=== PATIENT | female | born 2000 | race Caucasian/White ===

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

== ENCOUNTER 2020-01-15 20:41 | Emergency (ER) | payer SELFPAY ==
[2020-01-15 20:46] VITALS: BP 168/121; PULSE 112; RESP 16; TEMP 37.1; O2SAT 100; BMI 39.0
--- NOTE | 2020-01-15 20:55 | ED_ITS ---
Documented by User: BARRERA Mckeon 01/16/20 03:16 HPI - Extremity Problem General: Chief complaint: Extremity Problem,Nontraumatic Stated complaint: under arm abscess Time Seen by Provider: 01/15/20 20:54 History of Present Illness: HPI Narrative: Patient is a 19-year-old female who comes into the ED with right axillary abscess. Patient states that this started around 2 weeks ago and is progressively gotten larger and more painful. Patient has had these in the past and usually she states they come to ahead and she is able to pop them. This one has not come to a head at all and is gotten more more painful and red and warm. Denies any drainage amount of abscess. She states the pain right now is a 10 out of 10. She has not taken any antibiotics recently. Associated symptoms: Deny chest pain, fever(s) or rash Review of Systems Const: Denies: fever, chills or fatigue Eyes: Denies: change in vision or eye discomfort ENMT: Denies: throat pain, painful swallowing, nasal discharge or nasal congestion Card: Denies: chest pain, palpitations, edema, swelling of feet/ankles, shortness of breath on exertion or shortness of breath when lying down Resp: Denies: shortness of breath, productive cough or non-productive cough GI: Denies: abdominal pain, nausea, vomiting, diarrhea, constipation or blood in stool : Denies: flank pain, painful urination or blood in urine Musc: Denies: neck pain, back pain or extremity swelling Skin/Breast: Reports: redness (right axillary), skin tenderness (right axillary) and new lesion (right axillary abscess); Denies: rash Neuro: Denies: headache, numbness in extremities or weakness in extremities PFSH ED PFSH: Social History Smoking and tobacco status: current every day smoker Female Reproductive History: Date of last menstrual period: 12/25/19 Physical Exam Narrative: EXAM NARRATIVE: Patient is a 19-year-old female that is lying on the exam bed when into the room. She appeared to be in some mild pain and discomfort. She was showing no signs of acute distress or acute respiratory distress. Const: COMMON NORMALS: oriented x3 HENMT: COMMON NORMALS: normocephalic HEAD & SCALP: normocephalic MOUTH: oral and palatal mucosa normal THROAT: posterior oropharynx normal and uvula midline Neck/C-Spine: COMMON NORMALS: supple GENERAL: Yes normal visual inspection Resp: COMMON NORMALS: normal respiratory effort, no retractions, no use of accessory muscles and clear to auscultation bilaterally AUSCULTATION: clear to auscultation bilaterally Cardio: COMMON NORMALS: regular rate, regular rhythm, S1 normal heart sound, S2 normal heart sound, no gallops, no clicks, no murmurs and peripheral pulses 2+ throughout RATE: regular rate RHYTHM: regular rhythm HEART SOUNDS: S1 normal and S2 normal PERIPHERAL PULSES: pulses 2+ throughout GI: COMMON NORMALS: normal to inspection, nondistended, normoactive bowel sounds, soft to palpation, non-tender and no masses PALPATION: Yes soft : COMMON NORMALS: Yes no CVA tenderness BLADDER/KIDNEY EXAM: Yes no CVA tenderness Back/Pelvis: COMMON NORMALS: no CVA tenderness Neuro: COMMON NORMALS: oriented x3 and moves all extremities Skin: LESIONS: lesion noted Right axillary Lesion type: Yes bulla Lesion size (cm): 1 Lesion location: right axillary Lesion color: Yes erythematous and Yes surrounding erythema Lesion consistency: Yes fluctuent, Yes firm and Yes indurated Lesion surface: Yes dry, Yes raised, No pointed, No draining and Yes warm Lesion border: Yes surrounding erythema Lesion tenderness: Yes moderate Le norman finding consistent with: Yes cellulitis (with abscess) Procedures Abscess I/D Site: upper extremity (Right Axillary) Side (if applicable): right Local Anesthetic: lidocaine 1% and with epi Amount of anesthesia used (mL): 10 Technique: incised with #11 blade Amount of fluid expressed (mL): 5 Irrigation: Yes (normal saline) Packing used?: none Course Reevaluation(s): Reevaluation #1: I used ultrasound to take a look at the right axillary region. I was able to identify a pocket of fluid to drain that appeared to be an abscess. Time: 22:35 Vital Signs: Vital signs: Vital Signs Temperature 98.2 F 01/16/20 00:05 Pulse Rate 97 01/16/20 00:05 Respiratory Rate 16 01/16/20 00:05 Blood Pressure 115/69 01/16/20 00:05 Pulse Oximetry 96 01/16/20 00:05 MDM - Extremity (Nontraumatic) MDM Narrative: Medical decision making narrative: Patient is a 19-year-old female who comes into the ED with abscess under her right axillary region. Physical examination showed a tender, erythematous, warm hard bullae with surrounding erythema. It appeared non-fluctuated and indurated. Ultrasound was performed to see if there was any pocket of fluid or abscess to be drained. Ultrasound did show an abscess. I&D was performed and pus was drained from abscess successfully. Patient was put on clindamycin and I&D site was left to heal by secondary intention. Patient told to follow-up with PCP in 3 to 5 days for reevaluation. Discharge Plan Discharge Patient Disposition: Home, Self-Care Clinical Impression: Abscess Cellulitis Qualifiers: Site of cellulitis: extremity Site of cellulitis of extremity: axilla Laterality: right Qualified Code(s): L03.111 - Cellulitis of right axilla Condition: Stable Prescriptions: New clindamycin HCl 150 mg capsule 300 mg PO QID 7 Days Qty: 56 RF: 0 No Action No Known Home Medications RF: 0 Discharge Orders: Discharge Order (Routine); Ordered 01/15/20 Ordered By: Surinder Arshad Referrals: Marco Cabezas DO [Primary Care Provider] - Discharge Diet: Regular Discharge Activity: Resume usual activity Patient Instructions: Cellulitis, Abscess (ED) Activity Restrictions/Additional Instructions: Follow-up with PCP or urgent care in 2 to 4 days for reevaluation. Change packing and bandage on abscess drainage site daily. Take full course of antibiotics as prescribed. You can take ibuprofen or Tylenol as needed for pain or fevers. Drink plenty of fluids and stay hydrated. Discharge Date/Time: 01/16/20 00:08 Coding Level of Care Code ED Group Supervisor Yard for Chg Fwd Exam Comprehensive Documented by User: Ibeth Peralta 01/16/20 05:01 HPI - Extremity Problem General: Chief complaint: Extremity Problem,Nontraumatic Stated complaint: under arm abscess Time Seen by Provider: 01/15/20 20:54 PFSH ED PFSH: Social History Smoking and tobacco status: current every day smoker Course Vital Signs: Vital signs: Vital Signs Temperature 98.2 F 01/16/20 00:05 Pulse Rate 97 01/16/20 00:05 Respiratory Rate 16 01/16/20 00:05 Blood Pressure 115/69 01/16/20 00:05 Pulse Oximetry 96 01/16/20 00:05 MDM - Extremity (Nontraumatic) MDM Narrative: Medical decision making narrative: This patient was not seen by me, evaluated by me nor discussed with me by the midlevel provider. I was available in the ER if needed throughout their stay but was not involved or contacted about their care. I am signing this chart per hospital policy ? Dr. Peralta. Discharge Plan Discharge Patient Disposition: Home, Self-Care Clinical Impression: Abscess Cellulitis Qualifiers: Site of cellulitis: extremity Site of cellulitis of extremity: axilla Laterality: right Qualified Code(s): L03.111 - Cellulitis of right axilla Condition: Stable Prescriptions: New clindamycin HCl 150 mg capsule 300 mg PO QID 7 Days Qty: 56 RF: 0 No Action No Known Home Medications RF: 0 Discharge Orders: Discharge Order (Routine); Ordered 01/15/20 Ordered By: Surinder Arshad Referrals: Marco Cabezas DO [Primary Care Provider] - Discharge Diet: Regular Discharge Activity: Resume usual activity Patient Instructions: Cellulitis, Abscess (ED) Activity Restrictions/Additional Instructions: Follow-up with PCP or urgent care in 2 to 4 days for reevaluation. Change packing and bandage on abscess drainage site daily. Take full course of antibiotics as prescribed. You can take ibuprofen or Tylenol as needed for pain or fevers. Drink plenty of fluids and stay hydrated. Discharge Date/Time: 01/16/20 00:08 Coding Level of Care Code ED Group Supervisor Yard for Michael Fwd Exam Comprehensive
--- NOTE | 2020-01-15 21:33 | PC.NURSE ---
pt asking for pain medication, rates pain an 8 on scale of 1-10
[2020-01-15] MEDS: HYDROcodone-acetaminophen 7.5-325 mg Tablet 1 TAB PO (22:11)
[2020-01-15 22:44] VITALS: BP 145/101; PULSE 109; O2SAT 98
[2020-01-16] MEDS: clindamycin 150 mg Capsule 300 MG PO (00:01)
[2020-01-16] MEDS: HYDROcodone-acetaminophen 7.5-325 mg Tablet 1 TAB PO (00:02)
[2020-01-16 00:05] VITALS: BP 115/69; PULSE 97; RESP 16; TEMP 36.8; O2SAT 96
== END 2020-01-16 00:08 | disposition home or self-care (01) ==
PROVIDERS: Emergency Provider Physician Assistant; Family Provider Family Medicine; PCP Family Medicine
DX: L02.411 Cutaneous abscess of right axilla (principal); L03.111 Cellulitis of right axilla; F17.200 Nicotine dependence, unspecified, uncomplicated
CPT/HCPCS: 10060; 12345; 87070; 87077; 87186; 87205; 99281; 99282; 99283; J2001

== ENCOUNTER 2020-03-20 02:59 | Emergency (ER) | payer SELFPAY ==
[2020-03-20 03:07] VITALS: BP 154/111; PULSE 116; RESP 18; TEMP 36.6; O2SAT 96; BMI 41.3
[2020-03-20] MEDS: sodium chloride 0.9% 1,000 ML 999 ML IV (03:50)
[2020-03-20 03:51] VITALS: BP 154/111; PULSE 76; RESP 19; O2SAT 100
[2020-03-20 04:13] LABS: Basophils # 0.1 10^3/uL (0.0-0.1); Basophils % 0.9 %; Eosinophils # 0.2 10^3/uL (0.0-0.8); Eosinophils % 2.4 %; Hematocrit 38.8 % (37.0-47.0); Hemoglobin 12.8 g/dL (11.5-15.3); Lymphocytes # 4.7 10^3/uL (1.5-6.5); Lymphocytes % 50.9 %; Mean Corpuscular Hemoglobin 28.9 pg (28.0-34.0); Mean Corpuscular Volume 87.6 fL (81-99); Mean Platelet Volume 10.9 fL (7.4-10.4); Monocytes # 0.7 10^3/uL (0.2-0.9); Monocytes % 7.5 %; Neutrophils # 3.5 10^3/uL (1.8-8.0); Nucleated Red Blood Cells % 0 %; Platelet Count 264 10^3/cmm (130-400); Red Blood Count 4.43 10^6/uL (4.1-5.3); Red Cell Distribution Width 15.9 % (12.1-15.1); White Blood Count 9.2 10^3/uL (4.5-13.0)
[2020-03-20 04:19] LABS: Alanine Aminotransferase 20 U/L (0-33); Alkaline Phosphatase 86 IU/L (35-105); Anion Gap 14.9 (5-19); Aspartate Amino Transferase 20 U/L (0-32); Blood Urea Nitrogen 6 mg/dL (6-20); Calcium 8.5 mg/dL (8.5-10.5); Carbon Dioxide 22 mmol/L (22-29); Chloride 105 mmol/L (98-107); Creatinine Clr Calc Pharmacy 215.5146; Globulin 2.2 g/dL (1.3-4.6); Glomerular Filtration Rate 128.8 mL/min (90-130); Glucose 103 mg/dL (65-115); Lipase 24 U/L (13-60); Osmolality Calculated 282 mOsm/kg (285-295); Potassium 3.9 mmol/L (3.5-5.1); Sodium 138 mmol/L (136-145); Total Bilirubin 0.2 mg/dL (0.15-1.2); Total Protein 6.2 g/dL (6.6-8.7)
--- NOTE | 2020-03-20 04:23 | USR_ITS ---
PROCEDURE INFORMATION: Exam: US First Trimester, Transabdominal and US , Transvaginal Exam date and time: 03/20/2020 5:49 AM Age: 19 years old Clinical indication: complicated by abdominal or pelvic pain; Right lower quadrant; First trimester; Gestational age or lmp: 5w 0d; ; Additional info: Preg, cramping. HCG level 585. TECHNIQUE: Imaging protocol: Real-time transabdominal obstetrical ultrasound of the maternal pelvis and a first trimester , less than 14 weeks 0 days, with image documentation. Transvaginal imaging was used for better evaluation of the fetus and adnexa. COMPARISON: US No relevant prior studies available. FINDINGS: There is a 3 mm rounded fluid collection within the uterus that may represent a very early gestational sac. No definite yolk sac visible to confirm that this is a true gestational sac. Size would suggest gestational age of between four and five weeks. Small amount of cul-de-sac fluid. Small complex cyst involving the right ovary, measuring 20 x 19 x 20 mm, possibly corpus luteum. Ectopic not excluded, but felt less likely. Maternal ovaries/adnexa otherwise appear essentially unremarkable. Blood flow detected in each ovary. The sonographic appearance alone is nonspecific. This may represent an early viable intrauterine , less than five weeks gestation. If there is any further question of viability, follow up will be needed. An ectopic with a pseudo sac in the uterus is not yet completely excluded. Appropriate clinical follow up is needed. The urinary bladder was not completely evaluated/imaged at this time. Endovaginal scanning provided better visualization/evaluation of the gestational sac and contents, as discussed above. US/US OB <=14 wk fetus w transvag IMPRESSION: 1. Possible very early gestational sac within the uterus. 2. See above discussion and recommendations. 3. Small complex cyst involving the right ovary, details above. 4. Other findings discussed above.
[2020-03-20 05:53] VITALS: RESP 18; O2SAT 99
[2020-03-20] MEDS: HYDROmorphone 1 mg/mL INJ 1 mL IVP (05:53)
[2020-03-20] MEDS: ondansetron 2 mg/ML SDV 2 mL 4 MG IVP (05:54)
[2020-03-20 05:58] VITALS: BP 124/91; PULSE 101; RESP 20; O2SAT 99
--- NOTE | 2020-03-20 06:55 | W.ED.ABDPA2 ---
HPI - Abdominal Pain General: Chief Complaint: Abdominal Pain Stated Complaint: ABD PAIN; 4 WEEKS Time Seen by Provider: 03/20/20 03:46 History of Present Illness: HPI narrative: 19-year-old female with a positive urine at home presents with right-sided belly pain and cramping no vomiting. She does have nausea. No fever. No vaginal bleeding or discharge. States her period was around 4 weeks ago. MD elicited complaint: abdominal pain Pertinent past history: none Onset (ago): day(s) Pain Consistency: constant Location: RLQ Severity: moderate Quality: cramping Radiation: none Relieving factors: nothing Associated Symptoms: Reports GI cramping; Denies chills, dysuria, fever(s) and hematuria Related Data: Date of Last Menstrual Period: 02/15/20 Review of Systems Const: Denies: fever(s) or chills Eyes: Denies: change in vision ENMT: Denies: swelling of lips/tongue, epistaxis or sinus pain Card: Denies: chest pain, palpitations, irregular heart rhythm or edema Resp: Denies: dyspnea, productive cough, non-productive cough or wheezing GI: Reports: GI cramping : Denies: dysuria or hematuria Musc: Denies: neck pain, joint redness or joint warmth Skin/Breast: Denies: rash, pruritus or erythema Neuro: Denies: headache(s), dizziness or vertigo Psych: Denies: anxiety PFSH ED PFSH: Social History Smoking and tobacco status: current every day smoker Female Reproductive History: Date of last menstrual period: 02/15/20 Physical Exam Const: GENERAL APPEARANCE: well developed ORIENTATION/CONSCIOUSNESS: Yes oriented to person, Yes oriented to place and Yes oriented to time HENMT: COMMON NORMALS: normocephalic, external ears normal and Normal external nose present HEAD & SCALP: normocephalic FACE & SINUS: normal facial exam NOSE: Normal external nose present and No nasal discharge present EXTERNAL EAR: Yes external ears normal MOUTH: tongue normal Eye: COMMON NORMALS: Equal, round and reactive pupils present, EOMs intact bilaterally and conjunctivae normal EYELID: eyelids normal CONJUNCTIVA: Yes conjunctivae normal PUPIL: Yes Equal, round and reactive pupils present Neck/C-Spine: GENERAL: No tracheal deviation Chest: COMMONS NORMALS: normal inspection of the chest CHEST: No tenderness Resp: COMMON NORMALS: clear to auscultation bilaterally EFFORT & INSPECTION: No tachypneic, No respiratory distress, No retractions, No uses accessory muscles and No tracheal deviation AUSCULTATION: clear to auscultation bilaterally, no rhonchi, no wheezes and lung sounds not diminished Cardio: COMMON NORMALS: regular rate and regular rhythm RATE: regular rate RHYTHM: regular rhythm HEART SOUNDS: no murmurs PERIPHERAL PULSES: radial pulses present GI: INSPECTION: No abdominal distension AUSCULTATION: No Hyperactive bowel sounds present and No Hypoactive bowel sounds present PALPATION: Yes Tenderness to palpation present (GI) Details: RLQ, No Guarding due to palpation present (GI) and No Rigid due to palpation PERCUSSION: no dullness to percussion and no tympanic to percussion : COMMON NORMALS: Yes no CVA tenderness BLADDER/KIDNEY EXAM: Yes no CVA tenderness Back/Pelvis: COMMON NORMALS: no CVA tenderness Neuro: SENSORIUM/ORIENTATION: Yes oriented to person, Yes oriented to place and Yes oriented to time Psych: COMMON NORMALS: mental status grossly normal Skin: COMMON NORMALS: no rashes or lesions noted GENERAL SKIN EXAM: no rashes or lesions noted Course Vital Signs: Vital signs: Vital Signs Temperature 97.9 F 03/20/20 03:07 Pulse Rate 101 H 03/20/20 05:58 Respiratory Rate 20 H 03/20/20 05:58 Blood Pressure 124/91 03/20/20 05:58 Pulse Oximetry 99 03/20/20 05:58 MDM - Abdominal Pain MDM Narrative: Medical decision making narrative: 19-year-old female with a positive test. Serum quant is 585. She has no vaginal bleeding. No discharge. Ultrasound reveals a 4 to 5-week sac. She has a corpus luteum cyst that is less likely an ectopic spoke with OB. Recommendations are repeat serum quantitative test in a few days, with repeat ultrasound in a week. Lab Data: Labs: Lab Results 03/20/20 03/20/20 Range/Units 03:45 03:45 WBC 9.2 (4.5-13.0) 10^3/ uL RBC 4.43 (4.1-5.3) 10^6/u L Hgb 12.8 (11.5-15.3) g/dL Hct 38.8 (37.0-47.0) % MCV 87.6 (81-99) fL MCH 28.9 (28.0-34.0) pg MCHC 33.0 (30.0-36.0) g/dL RDW 15.9 H (12.1-15.1) % Plt Count 264 (130-400) 10^3/c mm MPV 10.9 H (7.4-10.4) fL Neut % (Auto) 38.0 % Lymph % (Auto) 50.9 % [place] % (Auto) 7.5 % Eos % (Auto) 2.4 % Baso % (Auto) 0.9 % Neut # (Auto) 3.5 (1.8-8.0) 10^3/u L Lymph # (Auto) 4.7 (1.5-6.5) 10^3/u L [place] # (Auto) 0.7 (0.2-0.9) 10^3/u L Eos # (Auto) 0.2 (0.0-0.8) 10^3/u L Baso # (Auto) 0.1 (0.0-0.1) 10^3/u L Nucleated RBC % (a uto) 0 % Nucleated RBCs # 0.0 /100WBC Sodium 138 (136-145) mmol/L Potassium 3.9 (3.5-5.1) mmol/L Chloride 105 (98-107) mmol/L Carbon Dioxide 22 (22-29) mmol/L Anion Gap 14.9 (5-19) BUN 6 (6-20) mg/dL Creatinine 0.6 (0.5-0.9) mg/dL GFR Calculation 128.8 (90-130) mL/min Glucose 103 (65-115) mg/dL Calculated Osmolal ity 282 L (285-295) mOsm/k g Calcium 8.5 (8.5-10.5) mg/dL Total Bilirubin 0.2 (0.15-1.2) mg/dL AST 20 (0-32) U/L ALT 20 (0-33) U/L Alkaline Phosphata se 86 (35-105) IU/L Total Protein 6.2 L (6.6-8.7) g/dL Albumin 4.0 (3.5-5.2) g/dL Globulin 2.2 (1.3-4.6) g/dL Lipase 24 (13-60) U/L Ser , Mike i-Qnt 585.50 mIU/mL Discharge Plan Discharge Patient Disposition: Home, Self-Care Clinical Impression: Qualifiers: Weeks of gestation: less than 8 weeks Qualified Code(s): Z3A.01 - Less than 8 weeks gestation of Abdominal pain Qualifiers: Abdominal location: right lower quadrant Qualified Code(s): R10.31 - Right lower quadrant pain Condition: Stable Prescriptions: No Action No Known Home Medications RF: 0 Discharge Orders: Discharge Order (Routine); Ordered 03/20/20 Ordered By: Gómez Stern Referrals: Les Haynes MD [Physician] - 1-3 days Patient Instructions: Cholecystitis (ED), Abdominal Pain (ED) Activity Restrictions/Additional Instructions: Return for fever greater than 100, worsening pain, brisk vaginal bleeding, soaking more than 1 pad per hour for more than 2 to 3 hours. you should call an legal arbitrator on Saturday morning. You will need repeat blood work, and a repeat ultrasound this coming week. Coding Level of Care Code ED Venereal Disease Control Head for Chg Fwd Exam Comprehensive
[2020-03-20 07:28] VITALS: BP 142/86; PULSE 75; RESP 15; O2SAT 98
[2020-03-20 08:12] LABS: Bilirubin Urine Neg (NEGATIVE); Blood Urine 2+ (Negative); Glucose Urine UA Norm (Normal); Ketones Urine Negative (Negative); Leukocyte Esterase Urine Negative (Negative); Nitrate Urine Negative (Negative); Protein Urine 3+ (Negative); Urine Appearance Clear (CLEAR); Urine Color Yellow (Yellow); Urobilinogen Urine Norm (Negative); pH Urine 5 (5-7)
[2020-03-20 08:14] LABS: Add Urine Microscopic? YES
[2020-03-20 08:21] LABS: Bacteria Urine 2+; Mucus Urine 1+
[2020-03-20 08:22] LABS: Add Urine Culture? No
== END 2020-03-20 07:30 | disposition home or self-care (01) ==
PROVIDERS: Emergency Provider Emergency Medicine
DX: O26.891 Other specified pregnancy related conditions, first trimester (principal); R10.31 Right lower quadrant pain; Z3A.01 Less than 8 weeks gestation of pregnancy; O99.331 Smoking (tobacco) complicating pregnancy, first trimester; F17.210 Nicotine dependence, cigarettes, uncomplicated
CPT/HCPCS: 12345; 76801; 76817; 80053; 81001; 81003; 83690; 84702; 85025; 96360; 96361; 96374; 96375; 99283; J1170; J2405; J7030

== ENCOUNTER 2020-05-05 23:24 | Emergency (ER) | payer MEDICAID, SELFPAY ==
[2020-05-05 23:41] VITALS: BP 137/89; PULSE 106; RESP 18; TEMP 36.6; O2SAT 98; BMI 39.0
--- NOTE | 2020-05-06 00:44 | US_ITS ---
WS: [id number] EARLY OBSTETRICAL ULTRASOUND (<14 WEEKS). HISTORY: Pain COMPARISON: None available. Single intrauterine gestational sac is identified. Cardiac activity at 176 BPM. [place]-rump length aracelis sures 4.0 cm which corresponds to a gestation of 10 weeks 6 days. Normal-appearing yolk sac and amnio n demonstrated. No subchorionic hemorrhage. No free fluid. No adnexal masses. US/US OB limited [id number] IMPRESSION: 1. Single intrauterine gestation of 10 weeks 6 days with an EDC of 11/26/2020. 2. Quality of examination is limited without transvaginal imaging. No abnormal ity is noted.
[2020-05-06 01:07] LABS: Basophils % 0.3 %; Eosinophils # 0.1 10^3/uL (0.0-0.8); Eosinophils % 1.4 %; Hematocrit 38.2 % (37.0-47.0); Hemoglobin 12.8 g/dL (11.5-15.3); Lymphocytes # 4.1 10^3/uL (1.5-6.5); Lymphocytes % 39.5 %; Mean Corpuscular HGB Conc 33.5 g/dL (30.0-36.0); Mean Corpuscular Hemoglobin 30.2 pg (28.0-34.0); Mean Corpuscular Volume 90.1 fL (81-99); Mean Platelet Volume 10.8 fL (7.4-10.4); Monocytes # 0.5 10^3/uL (0.2-0.9); Monocytes % 4.4 %; Neutrophils # 5.55 10^3/uL (1.8-8.0); Nucleated Red Blood Cells % 0 %; Platelet Count 208 10^3/cmm (130-400); Red Blood Count 4.24 10^6/uL (4.1-5.3); Red Cell Distribution Width 14.1 % (12.1-15.1); White Blood Count 10.3 10^3/uL (4.5-13.0)
[2020-05-06 01:34] LABS: Alanine Aminotransferase 14 U/L (0-33); Albumin Level 4.1 g/dL (3.5-5.2); Alkaline Phosphatase 70 IU/L (35-105); Anion Gap 12.7 (5-19); Aspartate Amino Transferase 14 U/L (0-32); Blood Urea Nitrogen 5 mg/dL (6-20); Calcium 9.4 mg/dL (8.5-10.5); Carbon Dioxide 24 mmol/L (22-29); Chloride 104 mmol/L (98-107); Globulin 2.2 g/dL (1.3-4.6); Glomerular Filtration Rate 128.8 mL/min (90-130); Glucose 89 mg/dL (65-115); Osmolality Calculated 279 mOsm/kg (285-295); Potassium 3.7 mmol/L (3.5-5.1); Sodium 137 mmol/L (136-145); Total Bilirubin 0.3 mg/dL (0.15-1.2); Total Protein 6.3 g/dL (6.6-8.7)
[2020-05-06 02:30] LABS: Specific Gravity, Urine 1.025 (1.005-1.030); Urine Appearance SL Hazy (CLEAR); Urine Color Dark Yellow (Yellow); pH Urine 6 (5-7)
[2020-05-06 02:31] LABS: Add Urine Culture? Yes; Bacteria Urine 2+; Bilirubin Urine Neg (NEGATIVE); Blood Urine 3+ (Negative); Glucose Urine UA Norm (Normal); Hyaline Casts Urine 0-4; Ketones Urine Negative (Negative); Leukocyte Esterase Urine Negative (Negative); Mucus Urine 1+; Nitrate Urine Negative (Negative); Protein Urine 3+ (Negative); RBC Urine 0-4 /hpf (0-2); Squamous Epithelial Cell Urine 0-4 (0-5); Urobilinogen Urine Norm (Negative); WBC Urine 15-25 /hpf (0-5)
[2020-05-06 02:48] VITALS: BP 165/102; RESP 16; O2SAT 98
--- NOTE | 2020-05-06 03:36 | ED_ITS ---
HPI - Abdominal Pain General: Chief Complaint: Abdominal Pain Stated Complaint: abd pain, preg x 11 weeks Time Seen by Provider: 05/06/20 02:20 Source: patient Mode of arrival: ambulatory Limitations: no limitations History of Present Illness: HPI narrative: Valentina is a nice 19-year-old female who comes in complaining of right hip pain. Patient was concerned about her as she believes herself to be about 10 weeks with her first . She sees Dr. Vega for this. Patient has pain when she presses on the area but no pain in her vagina, she has no vaginal discharge or bleeding, she is had no fever, no dysuria, no upper abdominal pain or flank pain. The pain is localized right over her ASIS region on the right. Associated Symptoms: Denies chills, coffee ground emesis, constipation, GI cramping, diarrhea, dysuria, fever(s), heartburn, hematochezia, hematuria, hematemesis, melena, nausea, syncope and vomiting Related Data: Date of Last Menstrual Period: 02/15/20 Review of Systems Const: Denies: fever(s), chills, body aches, fatigue, malaise or diaphoresis Eyes: Denies: change in vision, blurry vision, blind spots, photophobia, eye discharge or eye redness ENMT: Denies: throat pain, odynophagia, hoarseness, swelling of lips/tongue, oral sores, ear or mastoid pain, ear discharge, change in hearing or nasal discharge Card: Denies: chest pain, palpitations, irregular heart rhythm, edema, lightheadedness, syncope, pre-syncope, dyspnea on exertion or orthopnea Resp: Denies: dyspnea, productive cough, non-productive cough, wheezing, hemoptysis or chest congestion GI: Denies: abdominal pain, nausea, vomiting, hematemesis, coffee ground emesis, heartburn, diarrhea, constipation, GI cramping, hematochezia or melena : Denies: flank pain, dysuria, urinary frequency, urinary urgency or hematur ia Musc: Reports: joint pain; Denies: neck pain, back pain, extremity pain, extremity swelling, joint swelling, joint redness, joint warmth or joint stiffness Skin/Breast: Denies: rash, pruritus, erythema, skin tenderness or jaundice Neuro: Denies: headache(s), numbness in extremities, weakness in extremities, sensory changes, lack of coordination, difficulty walking, dizziness, vertigo, confusion, Slurred speech present or seizure-like activity Vinnie/Lymph: Denies: easy bruising, easy bleeding, petechiae, purpura or enlarged lymph nodes All/Imm: Denies: urticaria, throat swelling, tongue swelling, facial swelling or acute wheezing PFSH ED PFSH: Medical History Hypertension Social History Smoking and tobacco status: current every day smoker Female Reproductive History: Date of last menstrual period: 02/15/20 Physical Exam Const: COMMON NORMALS: no acute distress, patient oriented x3, no limitations, healthy appearing and well nourished GENERAL APPEARANCE: cooperative, well kempt and well developed HENMT: COMMON NORMALS: normocephalic, atraumatic, external ears normal, EAC's normal and Normal external nose present HEAD & SCALP: normal to inspection, normocephalic and atraumatic FACE & SINUS: normal facial exam and face symmetric NOSE: Normal external nose present and Normal nares present EXTERNAL EAR: Yes external ears normal EXTERNAL AUDITORY CANAL: EAC's normal MOUTH: Normal oral and palatal mucosa present, lip normal and tongue normal Eye: COMMON NORMALS: Equal, round and reactive pupils present and conjunctivae normal GENERAL EYE: appearance normal, both eyes and all related structures ALIGNMENT: Yes alignment normal PERIORBITAL: periorbital findings normal EYELID: eyelids normal CONJUNCTIVA: Yes conjunctivae normal SCLERA: sclerae normal PUPIL: Yes Equal, round and reactive pupils present Neck/C-Spine: COMMON NORMALS: full ROM, no lymphadenopathy, supple, no meningeal signs and no JVD GENERAL: Yes normal visual inspection and Yes trachea midline Chest: COMMONS NORMALS: normal inspection of the chest and normal palpation of entire chest wall Resp: COMMON NORMALS: normal respiratory effort, No retractions and No use of accessory muscles EFFORT & INSPECTION: Yes able to speak in complete sentences and Yes symmetric chest movement AUSCULTATION: no crackles, no rales, no rhonchi and no wheezes Cardio: COMMON NORMALS: no JVD, regular rate, regular rhythm, S1 normal heart sound present and S2 normal heart sound present RATE: regular rate RHYTHM: regular rhythm HEART SOUNDS: S1 normal heart sound present, S2 normal heart sound present, no click, no gallops, no murmurs, no rubs and abnormal split S2 GI: COMMON NORMALS: Soft to palpation and No hepatosplenomegaly present PALPATION: Yes Soft to palpation, No Tenderness to palpation present (GI), No Guarding due to palpation present (GI), No Rigid due to palpation, Yes No hepatosplenomegaly present, No Hernia present, No Palpable mass present and No Pulsatile mass present : COMMON NORMALS: Yes no CVA tenderness BLADDER/KIDNEY EXAM: Yes no CVA tenderness EXTERNAL FEMALE EXAM: No Hernia present Back/Pelvis: COMMON NORMALS: no CVA tenderness, thoracic and lumbar spine normal to inspection, no thoracic nor lumbar tenderness and thoraco-lumbar ROM normal Extremity: COMMON NORMALS: normal to inspection, full ROM, capillary refill normal, no joint enlargement, no clubbing, cyanosis or edema and no calf tenderness Neuro: COMMON NORMALS: patient oriented x3, CN's II-XII intact bilaterally, moves all extremities, no focal motor deficits and no sensory deficits noted MENINGEAL SIGNS: Yes no meningeal signs SPEECH: speech normal Psych: COMMON NORMALS: mental status grossly normal, Normal thought process present, cooperative, normal affect, speech normal and activity/motor behavior normal APPEARANCE: Yes well kempt SPEECH: Yes normal speech THOUGHT PROCESS: Normal thought process present Skin: COMMON NORMALS: no rashes or lesions noted, turgor normal, no jaundice, no petechiae and no mottling GENERAL SKIN EXAM: no rashes or lesions noted and turgor normal Course Vital Signs: Vital signs: Vital Signs Temperature 97.8 F 05/05/20 23:41 Pulse Rate 106 H 05/05/20 23:41 Respiratory Rate 16 05/06/20 02:48 Blood Pressure 137/92 05/06/20 03:49 Pulse Oximetry 98 05/06/20 02:48 MDM - Abdominal Pain MDM Narrative: Medical decision making narrative: Valentina is a nice 19-year-old female who comes in complaining of pain over the ASIS on the right. There is no right lower quadrant pain and there is no pain deep in the pelvis. She is refusing pelvic exam. She has no vaginal discharge or bleeding. Gonorrhea clear details were sent off urine. Patient does have a UTI which I will treat. Patient has mild pedal edema and trace if any pretibial edema. Her blood pressure is high but she states it was high even before she was . Because of the degree of proteinuria and the high blood pressure I reviewed the case with Dr. Vega the patient's FUR DESIGNER and he would like her to start on labetalol, 200 mg twice daily. He agrees to see the patient in the office for follow-up and would like her to keep a log until that time. Lab Data: Attestation: I reviewed the patient's lab results. Labs: Lab Results 05/06/20 05/06/20 05/06/20 Range/Units 00:51 01:03 01:03 WBC (4.5-13.0) 10^3/ uL RBC (4.1-5.3) 10^6/u L Hgb (11.5-15.3) g/dL Hct (37.0-47.0) % MCV (81-99) fL MCH (28.0-34.0) pg MCHC (30.0-36.0) g/dL RDW (12.1-15.1) % Plt Count (130-400) 10^3/c mm MPV (7.4-10.4) fL Neut % (Auto) % Lymph % (Auto) % [place] % (Auto) % Eos % (Auto) % Baso % (Auto) % Neut # (Auto) (1.8-8.0) 10^3/u L Lymph # (Auto) (1.5-6.5) 10^3/u L [place] # (Auto) (0.2-0.9) 10^3/u L Eos # (Auto) (0.0-0.8) 10^3/u L Baso # (Auto) (0.0-0.1) 10^3/u L Nucleated RBC % (a uto) % Nucleated RBCs # /100WBC Sodium 137 (136-145) mmol/L Potassium 3.7 (3.5-5.1) mmol/L Chloride 104 (98-107) mmol/L Carbon Dioxide 24 (22-29) mmol/L Anion Gap 12.7 (5-19) BUN 5 L (6-20) mg/dL Creatinine 0.6 (0.5-0.9) mg/dL GFR Calculation 128.8 (90-130) mL/min Glucose 89 (65-115) mg/dL Calculated Osmolal ity 279 L (285-295) mOsm/k g Calcium 9.4 (8.5-10.5) mg/dL Total Bilirubin 0.3 (0.15-1.2) mg/dL AST 14 (0-32) U/L ALT 14 (0-33) U/L Alkaline Phosphata se 70 (35-105) IU/L Total Protein 6.3 L (6.6-8.7) g/dL Albumin 4.1 (3.5-5.2) g/dL Globulin 2.2 (1.3-4.6) g/dL Ser , [place]Qnt 04732.00 mIU/mL Urine Color Dark yellow (Yellow) Urine Appearance Sl hazy (CLEAR) Urine pH 6 (5-7) Ur Specific Gravit y 1.025 (1.005-1.030) Urine Protein 3+ H (Negative) Urine Glucose (UA) Norm (Normal) Urine Ketones Negative (Negative) Urine Blood 3+ H (Negative) Urine Nitrate Negative (Negative) Urine Bilirubin Neg (NEGATIVE) Urine Urobilinogen Norm (Negative) mg/dL Ur Leukocyte Brigida ase Negative (Negative) Urine RBC 0-4 H (0-2) /hpf Urine WBC 15-25 H (0-5) /hpf Ur Squamous Epith Cells 0-4 H (0-5) Urine Bacteria 2+ H (NONE) Hyaline Casts 0-4 H Urine Mucus 1+ Blood Type A Positive Rho(D) Type Positive 05/06/20 Range/Units 01:03 WBC 10.3 (4.5-13.0) 10^3/ uL RBC 4.24 (4.1-5.3) 10^6/u L Hgb 12.8 (11.5-15.3) g/dL Hct 38.2 (37.0-47.0) % MCV 90.1 (81-99) fL MCH 30.2 (28.0-34.0) pg MCHC 33.5 (30.0-36.0) g/dL RDW 14.1 (12.1-15.1) % Plt Count 208 (130-400) 10^3/c mm MPV 10.8 H (7.4-10.4) fL Neut % (Auto) 54.0 % Lymph % (Auto) 39.5 % [place] % (Auto) 4.4 % Eos % (Auto) 1.4 % Baso % (Auto) 0.3 % Neut # (Auto) 5.55 (1.8-8.0) 10^3/u L Lymph # (Auto) 4.1 (1.5-6.5) 10^3/u L [place] # (Auto) 0.5 (0.2-0.9) 10^3/u L Eos # (Auto) 0.1 (0.0-0.8) 10^3/u L Baso # (Auto) 0.0 (0.0-0.1) 10^3/u L Nucleated RBC % (a uto) 0 % Nucleated RBCs # 0.0 /100WBC Sodium (136-145) mmol/L Potassium (3.5-5.1) mmol/L Chloride (98-107) mmol/L Carbon Dioxide (22-29) mmol/L Anion Gap (5-19) BUN (6-20) mg/dL Creatinine (0.5-0.9) mg/dL GFR Calculation (90-130) mL/min Glucose (65-115) mg/dL Calculated Osmolal ity (285-295) mOsm/k g Calcium (8.5-10.5) mg/dL Total Bilirubin (0.15-1.2) mg/dL AST (0-32) U/L ALT (0-33) U/L Alkaline Phosphata se (35-105) IU/L Total Protein (6.6-8.7) g/dL Albumin (3.5-5.2) g/dL Globulin (1.3-4.6) g/dL Ser , Mike i-Qnt mIU/mL Urine Color (Yellow) Urine Appearance (CLEAR) Urine pH (5-7) Ur Specific Gravit y (1.005-1.030) Urine Protein (Negative) Urine Glucose (UA) (Normal) Urine Ketones (Negative) Urine Blood (Negative) Urine Nitrate (Negative) Urine Bilirubin (NEGATIVE) Urine Urobilinogen (Negative) mg/dL Ur Leukocyte Brigida ase (Negative) Urine RBC (0-2) /hpf Urine WBC (0-5) /hpf Ur Squamous Epith Cells (0-5) Urine Bacteria (NONE) Hyaline Casts Urine Mucus Blood Type Rho(D) Type Imaging Data ^: US OB: My impression: cytotechnologist/cytology supervisor interpretation -11-week intrauterine with a heart rate of 178. Cervix long and closed. No masses or free fluids. Bilateral ovaries normal without cyst or torsion. Otherwise unremarkable. Discharge Plan Discharge Patient Disposition: Home, Self-Care Clinical Impression: Hypertension Qualifiers: Hypertension type: unspecified Qualified Code(s): I10 - Essential (primary) hypertension UTI (urinary tract infection) Qualifiers: Urinary tract infection type: acute cystitis Hematuria presence: with hematuria Qualified Code(s): N30.01 - Acute cystitis with hematuria Condition: Stable Prescriptions: New labetalol 200 mg tablet 200 mg PO BID Qty: 30 RF: 0 cefdinir 300 mg capsule 300 mg PO Q12H 10 Days Qty: 20 RF: 0 Discharge Orders: Discharge Order (Routine); Ordered 05/06/20 Ordered By: Ibeth Peralta Referrals: Luis Vega MD [Physician] - 1-3 days Discharge Diet: Low Salt Discharge Activity: Limit activity as instructed Patient Instructions: Threatened Miscarriage (ED), (ED), Urinary Tract Infection in Women (ED), Hypertension (ED) Activity Restrictions/Additional Instructions: Please return to the ER immediately for any of the signs or symptoms listed on your discharge instruction sheets, worsening/changing of your symptoms, you are not getting better as quickly as expected, or for ANY other cause or concerns. Be certain to follow-up with Dr. Vega as soon as possible for recheck. Keep a blood pressure log for him to review. Return to the ER for vaginal bleeding, back pain, increased pain in the right hip, or for any other cause for concern. You have declined any further evaluation care of your right hip pain and things such as appendicitis could be a possibility. If you change your mind and want to complete your work-up with CT scan and other evaluations you are more than welcome to return at any time. Discharge Date/Time: 05/06/20 04:18 Coding Level of Care Code ED Institutional Research Coordinator for Chg Fwd Exam Comprehensive
[2020-05-06] MEDS: cefTRIAXone 1,000 MG in sodium chloride 0.9% (plus) 50 ML 100 MG IV (03:47)
[2020-05-06 03:49] VITALS: BP 137/92
[2020-05-06] MEDS: labetalol 200 mg Tablet PO (04:08)
== END 2020-05-06 04:18 | disposition home or self-care (01) ==
PROVIDERS: Emergency Provider Emergency Medicine
DX: I10 Essential (primary) hypertension (principal); N30.01 Acute cystitis with hematuria; F17.210 Nicotine dependence, cigarettes, uncomplicated
CPT/HCPCS: 12345; 76815; 76856; 80053; 81001; 84702; 85025; 86900; 87077; 87086; 87186; 87491; 87591; 96365; 99283; J0696

== ENCOUNTER 2020-06-17 23:56 | Emergency (ER) | payer MEDICAID, SELFPAY ==
[2020-06-18 00:16] VITALS: BP 118/78; PULSE 104; RESP 18; TEMP 36.9; O2SAT 97; BMI 38.3
[2020-06-18 00:48] LABS: Basophils % 0.3 %; Eosinophils # 0.1 10^3/uL (0.0-0.8); Eosinophils % 0.9 %; Hematocrit 34.5 % (37.0-47.0); Hemoglobin 12.3 g/dL (11.5-15.3); Lymphocytes # 3.8 10^3/uL (1.5-6.5); Lymphocytes % 30.7 %; Mean Corpuscular HGB Conc 35.7 g/dL (30.0-36.0); Mean Corpuscular Hemoglobin 32.6 pg (28.0-34.0); Mean Corpuscular Volume 91.5 fL (81-99); Mean Platelet Volume 11.5 fL (7.4-10.4); Monocytes # 0.6 10^3/uL (0.2-0.9); Monocytes % 5.1 %; Neutrophils # 7.73 10^3/uL (1.8-8.0); Neutrophils % 62.4 %; Nucleated Red Blood Cells % 0 %; Platelet Count 209 10^3/cmm (130-400); Red Blood Count 3.77 10^6/uL (4.1-5.3); Red Cell Distribution Width 13.8 % (12.1-15.1); White Blood Count 12.4 10^3/uL (4.5-13.0)
[2020-06-18 01:10] LABS: Alanine Aminotransferase 12 U/L (0-33); Albumin Level 3.8 g/dL (3.5-5.2); Alkaline Phosphatase 81 IU/L (35-105); Anion Gap 14.8 (5-19); Aspartate Amino Transferase 14 U/L (0-32); Blood Urea Nitrogen 7 mg/dL (6-20); Calcium 9.2 mg/dL (8.5-10.5); Carbon Dioxide 20 mmol/L (22-29); Chloride 101 mmol/L (98-107); Globulin 2.5 g/dL (1.3-4.6); Glomerular Filtration Rate 128.8 mL/min (90-130); Glucose 83 mg/dL (65-115); Osmolality Calculated 269 mOsm/kg (285-295); Potassium 3.8 mmol/L (3.5-5.1); Sodium 132 mmol/L (136-145); Total Bilirubin 0.4 mg/dL (0.15-1.2); Total Protein 6.3 g/dL (6.6-8.7)
[2020-06-18 01:43] LABS: Lipase 16 U/L (13-60)
--- NOTE | 2020-06-18 02:27 | W.ED.NAVMDI ---
HPI - Nausea/Vomiting/Diarrhea General: Chief complaint: Nausea/Vomiting/Diarrhea Stated complaint: low abd/back pain/ cant hold any down Time Seen by Provider: 06/18/20 02:07 Source: patient Mode of arrival: ambulatory Limitations: no limitations Review of Systems General: Reports: 10 or more systems reviewed and unremarkable except in HPI and below PFSH ED PFSH: Medical History (Updated 06/18/20 @ 02:48 by LISS Noland) Hypertension Social History Smoking and tobacco status: current every day smoker Female Reproductive History: Date of last menstrual period: 02/17/20 Physical Exam Const: COMMON NORMALS: no acute distress and patient oriented x3 GENERAL APPEARANCE: cooperative HENMT: COMMON NORMALS: normocephalic, TM's normal bilaterally and Normal external nose present HEAD & SCALP: normal to inspection and normocephalic NOSE: Normal external nose present TYMPANIC MEMBRANE: TM's normal bilaterally MOUTH: Normal oral and palatal mucosa present THROAT: posterior oropharynx normal Eye: GENERAL EYE: appearance normal, both eyes and all related structures Neck/C-Spine: COMMON NORMALS: full ROM Lymph: LYMPHATIC: no lymphadenopathy noted Chest: COMMONS NORMALS: normal inspection of the chest Resp: COMMON NORMALS: normal respiratory effort EFFORT & INSPECTION: Yes able to speak in complete sentences Cardio: COMMON NORMALS: regular rate and regular rhythm RATE: regular rate RHYTHM: regular rhythm GI: COMMON NORMALS: non-tender : COMMON NORMALS: Yes no CVA tenderness BLADDER/KIDNEY EXAM: Yes no CVA tenderness Back/Pelvis: COMMON NORMALS: no CVA tenderness and thoracic and lumbar spine normal to inspection Extremity: COMMON NORMALS: normal to inspection Neuro: COMMON NORMALS: patient oriented x3 and moves all extremities Psych: COMMON NORMALS: mental status grossly normal and cooperative Skin: COMMON NORMALS: no rashes or lesions noted GENERAL SKIN EXAM: no rashes or lesions noted Course Vital Signs: Vital signs: Vital Signs Temperature 98.5 F 06/18/20 00:16 Pulse Rate 104 H 06/18/20 00:16 Respiratory Rate 18 06/18/20 00:16 Blood Pressure 118/78 06/18/20 00:16 Pulse Oximetry 97 06/18/20 00:16 MDM - Nausea/Vomiting/Diarrhea MDM Narrative: Medical decision making narrative: 19-year-old female comes in today with complaints of nausea and vomiting. Patient reports that she has been having a lot of nausea and vomiting throughout her . Patient is concerned that it may be her gallbladder. Patient appears well. Patient appears in no acute distress. Abdomen soft nontender. Vital signs are normal. Differential diagnosis includes but not limited to cholecystitis, pancreatitis, gastroenteritis, hyperemesis gravidarum. Laboratory values noted no obstructive gallbladder pattern. Blood counts normal. Urinalysis was a very dirty catch but had some positive leukocytes esterase and nitrates. We will go ahead and treat with 1 g of Rocephin to cover for UTI. Patient will then be placed medication for prevention of nausea and vomiting 1 tablet twice a day, and some meclizine further for better nausea and vomiting control. Reviewed recommendations for follow-up with SEPT[facility] CLEANER or return to the emergency department. Patient reports understanding. Lab Data: Labs: Lab Results 06/18/20 06/18/20 06/18/20 Range/Units 00:30 00:30 00:30 WBC 12.4 (4.5-13.0) 10^3/ uL RBC 3.77 L (4.1-5.3) 10^6/u L Hgb 12.3 (11.5-15.3) g/dL Hct 34.5 L (37.0-47.0) % MCV 91.5 (81-99) fL MCH 32.6 (28.0-34.0) pg MCHC 35.7 (30.0-36.0) g/dL RDW 13.8 (12.1-15.1) % Plt Count 209 (130-400) 10^3/c mm MPV 11.5 H (7.4-10.4) fL Neut % (Auto) 62.4 % Lymph % (Auto) 30.7 % [place] % (Auto) 5.1 % Eos % (Auto) 0.9 % Baso % (Auto) 0.3 % Neut # (Auto) 7.73 (1.8-8.0) 10^3/u L Lymph # (Auto) 3.8 (1.5-6.5) 10^3/u L [place] # (Auto) 0.6 (0.2-0.9) 10^3/u L Eos # (Auto) 0.1 (0.0-0.8) 10^3/u L Baso # (Auto) 0.0 (0.0-0.1) 10^3/u L Nucleated RBC % (a uto) 0 % Nucleated RBCs # 0.0 /100WBC Sodium 132 L (136-145) mmol/L Potassium 3.8 (3.5-5.1) mmol/L Chloride 101 (98-107) mmol/L Carbon Dioxide 20 L (22-29) mmol/L Anion Gap 14.8 (5-19) BUN 7 (6-20) mg/dL Creatinine 0.6 (0.5-0.9) mg/dL GFR Calculation 128.8 (90-130) mL/min Glucose 83 (65-115) mg/dL Calculated Osmolal ity 269 L (285-295) mOsm/k g Calcium 9.2 (8.5-10.5) mg/dL Total Bilirubin 0.4 (0.15-1.2) mg/dL AST 14 (0-32) U/L ALT 12 (0-33) U/L Alkaline Phosphata se 81 (35-105) IU/L Total Protein 6.3 L (6.6-8.7) g/dL Albumin 3.8 (3.5-5.2) g/dL Globulin 2.5 (1.3-4.6) g/dL Lipase 16 (13-60) U/L Urine Color (Yellow) Urine Appearance (CLEAR) Urine pH (5-7) Ur Specific Gravit y (1.005-1.030) Urine Protein (Negative) Urine Glucose (UA) (Normal) Urine Ketones (Negative) Urine Blood (Negative) Urine Nitrate (Negative) Urine Bilirubin (NEGATIVE) Urine Urobilinogen (Negative) mg/dL Ur Leukocyte Brigida ase (Negative) Urine RBC (0-2) /hpf Urine WBC (0-5) /hpf Ur Squamous Epith Cells (0-5) Amorphous Sediment Urine Bacteria (NONE) Hyaline Casts Urine Mucus 06/18/20 Range/Units 02:13 WBC (4.5-13.0) 10^3/ uL RBC (4.1-5.3) 10^6/u L Hgb (11.5-15.3) g/dL Hct (37.0-47.0) % MCV (81-99) fL MCH (28.0-34.0) pg MCHC (30.0-36.0) g/dL RDW (12.1-15.1) % Plt Count (130-400) 10^3/c mm MPV (7.4-10.4) fL Neut % (Auto) % Lymph % (Auto) % [place] % (Auto) % Eos % (Auto) % Baso % (Auto) % Neut # (Auto) (1.8-8.0) 10^3/u L Lymph # (Auto) (1.5-6.5) 10^3/u L [place] # (Auto) (0.2-0.9) 10^3/u L Eos # (Auto) (0.0-0.8) 10^3/u L Baso # (Auto) (0.0-0.1) 10^3/u L Nucleated RBC % (a uto) % Nucleated RBCs # /100WBC Sodium (136-145) mmol/L Potassium (3.5-5.1) mmol/L Chloride (98-107) mmol/L Carbon Dioxide (22-29) mmol/L Anion Gap (5-19) BUN (6-20) mg/dL Creatinine (0.5-0.9) mg/dL GFR Calculation (90-130) mL/min Glucose (65-115) mg/dL Calculated Osmolal ity (285-295) mOsm/k g Calcium (8.5-10.5) mg/dL Total Bilirubin (0.15-1.2) mg/dL AST (0-32) U/L ALT (0-33) U/L Alkaline Phosphata se (35-105) IU/L Total Protein (6.6-8.7) g/dL Albumin (3.5-5.2) g/dL Globulin (1.3-4.6) g/dL Lipase (13-60) U/L Urine Color Yellow (Yellow) Urine Appearance Sl cloudy A (CLEAR) Urine pH 5 (5-7) Ur Specific Gravit y 1.010 (1.005-1.030) Urine Protein 3+ H (Negative) Urine Glucose (UA) Norm (Normal) Urine Ketones 3+ H (Negative) Urine Blood 3+ H (Negative) Urine Nitrate Negative (Negative) Urine Bilirubin 1+ H (NEGATIVE) Urine Urobilinogen 1 H (Negative) mg/dL Ur Leukocyte Brigida ase 1+ H (Negative) Urine RBC 15-25 H (0-2) /hpf Urine WBC 0-4 H (0-5) /hpf Ur Squamous Epith Cells 25-40 H (0-5) Amorphous Sediment 2+ Urine Bacteria 1+ H (NONE) Hyaline Casts 0-4 H Urine Mucus 1+ Discharge Plan Discharge Patient Disposition: Home Clinical Impression: Hyperemesis gravidarum UTI (urinary tract infection) Qualifiers: Urinary tract infection type: acute cystitis Hematuria presence: without hematuria Qualified Code(s): N30.00 - Acute cystitis without hematuria Condition: Stable Prescriptions: New Diclegis 10-10 mg tablet,delayed release (DR/EC) 1 tab PO BID Qty: 20 RF: 0 meclizine 12.5 mg tablet 12.5 mg PO QID PRN (Reason: nausea and vomiting) Qty: 20 RF: 0 No Action labetalol 200 mg tablet 200 mg PO BID Qty: 30 RF: 0 Discharge Orders: Discharge Order (Routine); Ordered 06/18/20 Ordered By: Galileo Lynn Discharge Diet: Usual diet Discharge Activity: Increase activity as tolerated Patient Instructions: Hyperemesis Gravidarum (ED) Activity Restrictions/Additional Instructions: Drink plenty of fluids. Take sips of water every 5 minutes to maintain hydration. Eat smaller frequent meals. Avoid carbonated beverages. Avoid greasy or spicy foods. Follow-up with [facility]PT[facility] CLEANER for further recommendations. Return to the emergency department for new concerns. Coding Level of Care Code ED Globe Cleaner for Michael Fwd Exam Comprehensive
[2020-06-18 02:45] LABS: Add Urine Microscopic? YES; Bilirubin Urine 1+ (NEGATIVE); Blood Urine 3+ (Negative); Glucose Urine UA Norm (Normal); Ketones Urine 3+ (Negative); Leukocyte Esterase Urine 1+ (Negative); Nitrate Urine Negative (Negative); Protein Urine 3+ (Negative); Urine Color Yellow (Yellow); Urobilinogen Urine 1 mg/dL (Negative); pH Urine 5 (5-7)
[2020-06-18 02:47] LABS: Add Urine Culture? No; Amorphous Sediment Urine 2+; Bacteria Urine 1+; Hyaline Casts Urine 0-4; Mucus Urine 1+; RBC Urine 15-25 /hpf (0-2); Squamous Epithelial Cell Urine 25-40 (0-5); WBC Urine 0-4 /hpf (0-5)
[2020-06-18] MEDS: meclizine 25 mg tablet PO (03:17)
[2020-06-18] MEDS: cefTRIAXone 1,000 mg SDV 1000 MG IM (03:18)
[2020-06-18 03:20] VITALS: PULSE 74; RESP 16; O2SAT 98
== END 2020-06-18 03:22 | disposition home or self-care (01) ==
PROVIDERS: Emergency Provider Nurse Practitioner Family
DX: O21.0 Mild hyperemesis gravidarum (principal); O23.10 Infections of bladder in pregnancy, unspecified trimester; Z3A.00 Weeks of gestation of pregnancy not specified
CPT/HCPCS: 12345; 80053; 81001; 83690; 85025; 96372; 99282; 99283; J0696; J8597

== ENCOUNTER 2020-07-27 20:43 | Outpatient (CLI) | payer MEDICAID, SELFPAY ==
[2020-07-27 20:50] VITALS: BP 127/60; PULSE 93; RESP 16; TEMP 36.8
[2020-07-27 20:56] VITALS: BP 127/60; PULSE 93
[2020-07-27 21:43] VITALS: BP 102/61; PULSE 88
[2020-07-27 22:03] VITALS: BP 98/59; PULSE 87
[2020-07-27 22:16] VITALS: BP 98/59; PULSE 87; RESP 16; TEMP 36.8
== END 2020-07-27 22:26 | disposition home or self-care (01) ==
LOC: OPOB 20:51 → OBGYN 20:51
PROVIDERS: PCP Family Medicine; Visit Provider Family Medicine
DX: O36.8190 Decreased fetal movements, unspecified trimester, not applicable or unspecified (principal); Z3A.00 Weeks of gestation of pregnancy not specified
CPT/HCPCS: 59025; 99211

== ENCOUNTER 2020-11-19 19:58 | Inpatient (IN) | payer MEDICAID, SELFPAY ==
[2020-11-19] VITALS (8 sets, daily range): BP systolic 142; BP diastolic 91; PULSE 82–121; TEMP 36.7; O2SAT 97–100; BMI 41.3
[2020-11-19 21:26] LABS: Basophils # 0.1 10^3/uL (0.0-0.1); Basophils % 0.4 %; Eosinophils # 0.1 10^3/uL (0.0-0.8); Eosinophils % 0.6 %; Hemoglobin 13.2 g/dL (11.5-15.3); Lymphocytes # 5.2 10^3/uL (1.5-6.5); Lymphocytes % 30.7 %; Mean Corpuscular HGB Conc 34.7 g/dL (30.0-36.0); Mean Corpuscular Hemoglobin 33.9 pg (28.0-34.0); Mean Corpuscular Volume 97.7 fL (81-99); Mean Platelet Volume 11.9 fL (7.4-10.4); Monocytes # 0.9 10^3/uL (0.2-0.9); Monocytes % 5.1 %; Neutrophils # 10.53 10^3/uL (1.8-8.0); Neutrophils % 62.8 %; Nucleated Red Blood Cells % 0 %; Platelet Count 191 10^3/cmm (130-400); Red Blood Count 3.89 10^6/uL (4.1-5.3); Red Cell Distribution Width 13.4 % (12.1-15.1); White Blood Count 16.8 10^3/uL (4.5-13.0)
[2020-11-19] MEDS: miSOPROStol 100 mcg tablet 25 MCG VAGINAL (22:17)
[2020-11-19] MEDS: lactated ringers 1,000 ML 999 ML IV (23:46)
[2020-11-20] VITALS (116 sets, daily range): BP systolic 117–197; BP diastolic 69–112; PULSE 77–122; RESP 14–18; TEMP 36.2–36.8; O2SAT 93–100
[2020-11-20] MEDS: ondansetron 2 mg/ML SDV 2 mL 4 MG IVP (00:33)
[2020-11-20] MEDS: famotidine 20 mg/2 mL INJ IVP (03:23)
[2020-11-20] MEDS: citric acid-sodium citrate 30 mL UDC PO (03:23)
--- NOTE | 2020-11-20 03:29 | P.ANESASSM_ITS ---
Pre-Anesthetic Assessment Pre-Anesthetic Assessment: Height/Weight: Height 1.8 m Weight 134.263 kg Temp Pulse BP Pulse Ox 98.0 F 98 139/97 100 11/19/20 20:00 11/20/20 03:22 11/20/20 01:58 11/20/20 03:22 Preop Diagnosis: IUP Proposed Procedure: Familial anesthetic complications: None Was Beta Eric taken within 24 hours: N/A Last intake: NPO > 8 hrs Social: Social History: Tobacco Exam: Pre-Anes Outpt Exam: alert, oriented x 3, clear to auscultation bilaterally and regular rate & rhythm Airway: Cervical ROM: WNL MP: 4 Dentition: Full Pulmonary: Pulmonary: Asthma Metabolic: Metabolic: Morbid obesity Musc/skel: Musc/skel: Scoliosis (T10-L3 ) Anesthetic Plan: ASA status: 2E Anesthesia: Regional (specify below) (spinal) Risk of > 500 ml blood loss (7ml/kg in children): No Meds/Allergies Current Medications: Current Medications Generic Name Dose Route Start Last Admin Trade Name Freq PRN Reason Stop Dose Admin Lactated Ringer's 1,000 mls @ 999 m ls/hr 11/19/20 21:01 11/19/20 23:46 Lactated Ringers IV 999 mls/hr .Q1H1M PRN Administration Per L&D Rescitati on Protocol Ondansetron HCl 4 mg 11/19/20 21:01 11/20/20 00:33 Ondansetron 2 Mg /Ml Sdv 2 Ml IVP 4 mg Q4H PRN Administration NAUSEA AND VOMITI NG PFSH Anesthesia PFSH: Medical History (Updated 08/11/20 @ 13:11 by Tracy Roper NP) Hypertension Social History Smoking and tobacco status: current every day smoker Female Reproductive History: Date of last menstrual period: 02/17/20 : 1 Data Anesthesia CBC & Chem 7: 11/19/20 20:40 Other Labs: Laboratory Results - last 48 hr 11/19/20 20:40 WBC 16.8 H RBC 3.89 L Hgb 13.2 Hct 38.0 MCV 97.7 MCH 33.9 MCHC 34.7 RDW 13.4 Plt Count 191 MPV 11.9 H Neut % (Auto) 62.8 Lymph % (Auto) 30.7 [place] % (Auto) 5.1 Eos % (Auto) 0.6 Baso % (Auto) 0.4 Neut # (Auto) 10.53 H Lymph # (Auto) 5.2 [place] # (Auto) 0.9 Eos # (Auto) 0.1 Baso # (Auto) 0.1 Nucleated RBC % (auto) 0 Nucleated RBCs # 0.0 Cardiac Studies: No Data to Display
--- NOTE | 2020-11-20 04:43 | PM.OP ---
Operative Report Date of procedure: November 20, 2020 Pre-op Diagnosis: IUP Post-op diagnosis: same Procedure Done: Lower transverse section Specimens removed/disposition: 1. Male with a weight of 4 pounds 5 ounces and Apgars of 7 and 8 2. Placenta with a three-vessel cord delivered intact Pathology: none sent Surgeon: Jax Woodall Addressing Machine Operator: Luis Vega Anesthesia: Epidural (Spinal) Estimated blood loss (mL): 800 Complications: None Condition: stable Disposition: floor (OB) Brief History: The patient is a postdates patient who presented for induction. Cytotec x1 was placed. The baby had prolonged decelerations and the decision was made to proceed with a section and I was contacted by Dr. Vega. Procedure: The patient was brought back to the operating room where she was prepped and draped in usual sterile fashion. Anesthesia was found to be adequate. Due to the patient's body habitus, the decision was made to make a skin incision was then made approximately 5 cm below the umbilicus with a #10 blade. I then dissected down to the underlying subcutaneous tissue until arriving at the prerectal fascia. The fascia was then nicked with the scalpel bilaterally. The fascial incisions were then carried laterally with Jovel scissors. Attention was then turned to the superior aspect of the incision which was grasped with kochers and tented up away from the underlying rectus abdominis muscles. The muscles were then dissected away from the fascia manually, and later with Jovel scissors. Attention was then turned to the inferior aspect of the incision, and the fascia was dissected away from the underlying muscle in similar fashion. The rectus abdominis muscles were then spread manually. The peritoneum was entered manually. Excellent visualization of the uterus was noted. A lower transverse uterine incision was then made with a #10 blade. Upon arriving at the intrauterine cavity, the uterine incision was then extended manually. The infant was noted to be in vertex position. The baby was delivered without difficulty. Meconium was noted. There was no nuchal cord. The cord was cut and clamped. The baby was then handed to the waiting nurse. The placenta was removed intact. The uterus was externalized. The intrauterine cavity was cleansed of any remaining debris. The uterine incision was reapproximated in 2 layers. The first layer was performed with 0 Vicryl in a running locked stitch. The second layer was an imbricating stitch also using 0 Vicryl. The uterus was replaced into the abdomen. The peritoneum was then irrigated with warm saline. I reexamined the uterine incision and found it to be hemostatic. The rectus abdominis muscles were then reapproximated using 0 Vicryl in a running stitch. The fascia was then reapproximated using 0 Vicryl in running stitch. The subcutaneous tissue was then reapproximated with 0 Vicryl in a running stitch. The skin was reapproximated with 4-0 Vicryl on a PK needle. Steri-Strips were placed. A sterile dressing was placed. All counts were correct x2. The mother was in stable condition and the baby was in nursery being cared for by the nursing staff, Dr. Vega and respiratory therapy. Associated Problem List Diagnoses (1) 40 weeks gestation of : (2) heart rate decelerations, delivered: (3) Status post :
--- NOTE | 2020-11-20 05:18 | PM.OBGYHP ---
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 The patient was cared for during Dr. Vega during her . had been relatively unremarkable. Her labs were also relatively unremarkable. She was GBS negative. Her Covid status is negative. She was noted to have 2+ to 3+ protein in her urine throughout her . Present Details : 1 Para: 0 Date of Last Menstrual Period: 02/17/20 Calculated Date of Delivery: 11/23/20 Gestational Age Based on Last Menstrual Period: 39 Labs Rubella: Immune RPR: Negative GBS: Negative Review of Systems General: Reports: 10 or more systems reviewed and unremarkable except in HPI and below Const: Reports: fatigue; Denies: fever(s) Eyes: Denies: change in vision Card: Denies: chest pain Musc: Reports: back pain Vinnie/Lymph: Denies: easy bruising Medications/Allergies Home Medications Medication Instructions Recorded Confirmed Last Taken Type PNV cmb#95-ferrous fumarate-FA tab PO 07/27/20 08/09/20 07/27/20 08:00 History [] Allergies Allergy/AdvReac Type Severity Reaction Status Date / Time meningococcal vaccine B and C Allergy ALGY-Rash Verified 08/09/20 09:40 methylprednisolone Allergy ADR-Halluci Verified 08/09/20 09:40 nating oseltamivir [From Tamiflu] Allergy ALGY-Hives Verified 08/09/20 09:40 sulfamethoxazole Allergy ALGY-Hives Verified 08/09/20 09:40 [From Bactrim] trimethoprim [From Bactrim] Allergy ALGY-Hives Verified 08/09/20 09:40 PFSH 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 OFFICER PFSH: Medical History (Updated 11/21/20 @ 07:23 by Jax Woodall MD) Hypertension Social History Smoking and tobacco status: current every day smoker Vitals/I&O/Wt Last Vital Signs Temp 98.0 F 11/19/20 20:00 Pulse 98 11/20/20 03:22 BP 139/97 11/20/20 01:58 Pulse Ox 100 11/20/20 03:22 Weight last 48 hrs Weight 296 lb Physical Exam Const: COMMON NORMALS: patient oriented x3 and alert HENMT: COMMON NORMALS: moist oral mucous membranes HEAD & SCALP: normal to inspection Chest: COMMONS NORMALS: normal inspection of the chest Resp: COMMON NORMALS: clear to auscultation bilaterally AUSCULTATION: clear to auscultation bilaterally Cardio: COMMON NORMALS: regular rate and regular rhythm RATE: regular rate RHYTHM: regular rhythm GI: INSPECTION: Yes normal to inspection and Yes other (Gravid) Extremity: COMMON NORMALS: normal to inspection GENERAL: Yes edema (Trace) Neuro: COMMON NORMALS: patient oriented x3, moves all extremities and no sensory deficits noted SENSORIUM/ORIENTATION: Yes alert Psych: COMMON NORMALS: mental status grossly normal Skin: COMMON NORMALS: no rashes or lesions noted GENERAL SKIN EXAM: no rashes or lesions noted Data : 11/20/20 14:40 11/20/20 07:30 A&P Assessment and plan (1) Asthma: Status: Acute (2) heart rate decelerations, delivered: Due to decelerations, the decision was made to proceed with a section by Dr. Vega. I discussed the risks of bleeding, infection, and damage to intra-abdominal organs. Both the patient and her mother acknowledges risks and wished to proceed. Status: Acute (3) 40 weeks gestation of : Status: Acute Attestations Medical Necessity Statement*: Routine and post care Coding Level of Care Code Acute Satellite Dish Technician for [facility] Fwd Exam Comprehensive Diagnoses Asthma J45.909 heart rate decelerations, delivered O76 40 weeks gestation of Z3A.40
--- NOTE | 2020-11-20 06:00 | ANE.PACU2 ---
Inpatient post-anesthesia follow up: Airway intact: Yes Vital signs: Temperature 98.1 F Pulse Rate 106 Respiratory Rate 20 Blood Pressure 142/99 Pulse Oximetry 97 Oxygen Delivery Me thod Room Air Oxygen Flow Rate 2 Fraction of Inspir ed Oxygen Hydration adequate: Yes Nausea and vomiting: No Pain level: 1 Mental status: Baseline
[2020-11-20] MEDS: dextrose 5%-lactated ringers 1,000 ML 125 ML IV ×2 (07:08→21:01)
[2020-11-20] MEDS: magnesium sulfate premix 4 GM/100 ML PREMIX IV (07:09)
[2020-11-20] MEDS: magnesium sulfate premix 20 GM/500 ML BAG IV ×2 (07:20→19:47)
--- NOTE | 2020-11-20 07:49 | PC.NURSE ---
030 - Called placed to Cheri Fong CRNA that being performed 302 - Called Dr. Carlson and notified that needed for . 031 - Dr. Vega at bedside 031 - Dr. Woodall at bedside 032 - Anesthesia team on unit
[2020-11-20 08:03] LABS: Alanine Aminotransferase 6 U/L (0-33); Albumin Level 2.3 g/dL (3.5-5.2); Alkaline Phosphatase 141 IU/L (35-105); Anion Gap 14.1 (5-19); Aspartate Amino Transferase 18 U/L (0-32); Blood Urea Nitrogen 9 mg/dL (6-20); Calcium 7.8 mg/dL (8.5-10.5); Carbon Dioxide 21 mmol/L (22-29); Chloride 105 mmol/L (98-107); Glomerular Filtration Rate 91.4 mL/min (90-130); Glucose 93 mg/dL (65-115); Osmolality Calculated 278 mOsm/kg (285-295); Potassium 5.1 mmol/L (3.5-5.1); Sodium 135 mmol/L (136-145); Total Bilirubin 0.2 mg/dL (0.15-1.2)
[2020-11-20 08:09] LABS: Magnesium Level (OB Only) 4.2 mg/dL (5.0-7.5)
[2020-11-20] MEDS: prenatal vitamin Capsule 1 CAP PO (09:39)
[2020-11-20] MEDS: docusate sodium 100 mg Capsule PO ×2 (09:40→19:48)
[2020-11-20] MEDS: ferrous sulfate EC 325 mg Tablet PO ×2 (09:40→19:48)
[2020-11-20] MEDS: ketorolac 30 mg/mL INJ IVP ×3 (09:40→21:01)
--- NOTE | 2020-11-20 10:55 | PC.NURSE ---
Silk Top Hat Body Maker offered to clean patient up at this time, offered pad change and to put underwear on patient. Patient states I would rather have my mom do it. I don't want you to do it Silk Top Hat Body Maker provided wash bin, soap, and wash cloths to mother of patient in room.
[2020-11-20] MEDS: sodium chloride 0.9% 500 ML 999 ML IV ×2 (12:14→13:26)
[2020-11-20 13:40] LABS: Magnesium Level (OB Only) 5.3 mg/dL (5.0-7.5)
--- NOTE | 2020-11-20 14:40 | PC.NURSE ---
Patient requesting to speak to Dr. Vega again. tag writer asked patient what she could do to help her. Patient states she would like a cigarette. Patient reeducated on oxygen safety and why she could not have a cigarette in our facility and also why it was not safe for her to go outside r/t pre-eclampsia. Patient offered a nicotine patch and accepted.
[2020-11-20 14:58] LABS: Hematocrit 36.2 % (37.0-47.0); Hemoglobin 12.4 g/dL (11.5-15.3); Mean Corpuscular HGB Conc 34.3 g/dL (30.0-36.0); Mean Corpuscular Hemoglobin 33.8 pg (28.0-34.0); Mean Corpuscular Volume 98.6 fL (81-99); Mean Platelet Volume 11.4 fL (7.4-10.4); Platelet Count 198 10^3/cmm (130-400); Red Blood Count 3.67 10^6/uL (4.1-5.3); Red Cell Distribution Width 13.8 % (12.1-15.1); White Blood Count 17.6 10^3/uL (4.5-13.0)
[2020-11-20] MEDS: nicotine 21 mg Patch 1 PATCH TRANSDERMA (15:57)
--- NOTE | 2020-11-20 16:44 | PC.NURSE ---
Phone call placed to respiratory at this time to bring patient IS.
[2020-11-20 18:55] LABS: Uric Acid 7.4 mg/dL (2.4-5.7)
[2020-11-20 19:23] LABS: Magnesium Level (OB Only) 5.7 mg/dL (5.0-7.5); Urine Creatinine 256 mg/dL (28-217)
[2020-11-20 19:24] LABS: UPRO/UCREAT Ratio 0.68 mg/mg CR; Urine Protein Random 174 mg/dL
[2020-11-20] MEDS: sodium chloride 0.9% 1,000 ML 999 ML IV (19:54)
[2020-11-21] VITALS (9 sets, daily range): BP systolic 132–156; BP diastolic 84–110; PULSE 80–97; RESP 15–18; TEMP 36.5–36.9; O2SAT 95–97
[2020-11-21 01:53] LABS: Magnesium Level (OB Only) 6.2 mg/dL (5.0-7.5)
[2020-11-21] MEDS: ketorolac 30 mg/mL INJ IVP (02:07)
--- NOTE | 2020-11-21 07:25 | P.PN_ITS ---
CORK MIXER Subjective Subjective: Interval history: Patient is doing well. Her pain is well controlled. She passed flatus. She is ambulating. Her urine output was appropriate. Shortly after surgery, she was noted to have decreased urine output. She was also placed on mag due to his multiple high blood pressures. Preeclamptic panel was performed at that time as well. She has not had any sign ificant swelling. She has no other preeclamptic symptoms Labor: Station: -3 Amniotic Membrane Status: Intact Monitor Mode: None Contraction Pattern: Absent Vitals/I&O/Wt Last Vital Signs Temp 98.1 F 11/21/20 04:00 Pulse 80 11/21/20 04:00 Resp 17 11/21/20 04:00 BP 146/89 11/21/20 04:00 Pulse Ox 96 11/21/20 04:00 11/20/20 11/21/20 11/21/20 22:59 06:59 14:59 Intake Total 1139.567 / 2500.593 5641.000 / 3135.900 Output Total 351 / 710 800 / 1510 Balance 788.567 / 1272.900 353.000 / 1625.900 Weight last 48 hrs Weight 296 lb Physical Exam Narrative: EXAM NARRATIVE: She is in no acute distress Lungs are clear auscultation bilaterally Her heart has a regular rate and rhythm Her fundus is below the umbilicus and firm Her dressing is clean, dry and intact Her extremities have trace edema Data : 11/20/20 14:40 11/20/20 07:30 Other Labs: Patient had 3+ protein in her urine. Her uric acid was 7.4. A&P Assessment and plan (1) Gestational hypertension: Patient's blood pressures have resolved. She was placed on magnesium for 24 hours post delivery. There are no other signs or symptoms of preeclampsia other than her proteinuria which is a chronic problem for her. This point anticipate she will be discharged home tomorrow. Status: Acute (2) Proteinuria affecting : Status: Acute (3) Status post : Status: Acute (4) 40 weeks gestation of : Status: Acute Attestations Medical Necessity Statement*: I anticipate discharge tomorrow morning. But she may be discharged this afternoon or evening depending on how she does. Coding Level of Care Code Acute Endoscopy Tech for [facility] [place] Diagnoses Gestational hypertension O13.9 Proteinuria affecting O12.10 Status post Z98.891 40 weeks gestation of Z3A.40
[2020-11-21] MEDS: ferrous sulfate EC 325 mg Tablet PO (09:11)
[2020-11-21] MEDS: docusate sodium 100 mg Capsule PO ×2 (09:11→17:00)
[2020-11-21] MEDS: prenatal vitamin Capsule 1 CAP PO (09:11)
[2020-11-21] MEDS: acetaminophen 325 mg Tablet 650 MG PO (09:12)
--- NOTE | 2020-11-21 09:16 | PC.NURSE ---
Patient reported her nicotine patch being placed on her right arm yesterday. When asked if she still had her nicotine patch on, she reported she didn't have it on any longer. When patient was asked why she no longer had it on, she replied I think it came off or something. Declined offer of another nicotine patch at this time.
[2020-11-21] MEDS: HYDROcodone-acetaminophen 5-325 mg Tablet PO ×2 (13:16→20:06)
--- NOTE | 2020-11-21 16:53 | PC.RESP ---
Smoking Cessation sent to patient.
[2020-11-21 19:44] LABS: Globulin 2.4 g/dL (1.3-4.6); Total Protein 4.7 g/dL (6.6-8.7)
[2020-11-22 05:15] VITALS: BP 161/115; PULSE 97; RESP 18; TEMP 36.8
[2020-11-22] MEDS: HYDROcodone-acetaminophen 5-325 mg Tablet PO ×2 (05:22→09:18)
[2020-11-22 05:29] VITALS: BP 154/118
[2020-11-22 05:35] VITALS: BP 168/124
[2020-11-22 06:30] VITALS: BP 157/108
--- NOTE | 2020-11-22 08:00 | P.DS_ITS ---
Discharge Providers MANAGER HEART FAILURE Date of Admission: 11/19/20 19:58 Date of Discharge: 11/22/20 Attending Provider at Admission: Luis Vega MD Attending Provider at Discharge: Luis Vega MD Primary Care Provider: Luis Vega MD Diagnoses at Discharge Discharge Diagnosis (1) Gestational hypertension: Status: Acute (2) Proteinuria affecting : Status: Acute (3) Status post : Status: Acute (4) 40 weeks gestation of : Status: Acute Reason for Visit Reason for Visit: Induction Hospital Course Hospital Course The patient presented to the hospital for postdates induction. Please see history and physical for details prior to delivery. Ultimately, the infant had prolonged decelerations and the decision was made to proceed with a . Her post course was remarkable for having elevated blood pressure. As result she was placed on magnesium. Her blood pressures had resolved, but prior to discharge increased again. As result she was placed on labetalol prior to going home. Her bleeding was within normal limits. Her pain was adequately controlled. There were no other concerns. Information Peripartum Data: Infant Delivery Method: Physical Exam Narrative: EXAM NARRATIVE: She is in no acute distress Lungs are clear auscultation bilaterally Her heart has a regular rate and rhythm Her fundus is below the umbilicus and firm Her incision is clean, dry and intact Her extremities have trace edema Discharge Data Data Completed and Pending: The patient had a preeclamptic panel which demonstrated 3+ protein in her urine and a protein creatinine ratio of 0.6. Her uric acid level was 7.4. Her CBC demonstrated a white blood count of 17.6 with a hemoglobin of 12.4 and a platelet count of 198 after the . Her complete metabolic panel had findings consistent with . Her sodium was 135, carbon dioxide 21, with a calcium of 7.8, alkaline phosphatase of 141, and albumin of 2.3 Labs from last 24 hours 11/20/20 07:30 Total Protein 4.7 L Globulin 2.4 Vitals: Last Vital Signs Temp 98.3 F 11/22/20 05:15 Pulse 97 11/22/20 05:15 Resp 18 11/22/20 05:15 BP 157/108 11/22/20 06:30 Pulse Ox 96 11/21/20 04:00 Discharge Plan Discharge Patient Disposition: Home Condition: Stable Prescriptions: New hydrocodone-acetaminophen 5-325 mg Tablet 1 - 2 tab PO Q4H PRN (Reason: Moderate To Severe Pain) Qty: 30 RF: 0 DOK 100 mg Capsule 100 mg PO BID Qty: 20 RF: 0 labetalol 100 mg tablet 100 mg PO BID Qty: 60 RF: 0 Continued 28 mg iron- 800 mcg Tablet PO RF: 0 Discharge Orders: Discharge Order (Routine); Ordered 11/22/20 Ordered By: Jax Woodall Referrals: Luis Vega MD [Primary Care Provider] - 6 Weeks Jax Woodall MD [Physician] - 11/30/20 2:45 pm (Your 1 week follow up is scheduled for 11/30/2020 at 2:[address] Woodall. Your 6 week follow up is scheduled for 01/03/2021 at 3:[address] Vega.) Discharge Diet: Regular Discharge Activity: Limit activity as instructed Patient Instructions: , Vitamins (By mouth), Bottle Feeding Your Baby (GEN), Your Baby (DC), How to Hold and Breastfeed Your Baby (DC), and Your Diet (DC), Breast Care for the Breast Feeding Mother (DC), OB Discharge Report, OB Food/Drug Interaction Guide, OB Proud Parent Packet, OB Vaginal Deliveries Activity Restrictions/Additional Instructions: We discussed the importance of minimizing cigarette smoke, especially in her case given her size and her increased risk of postoperative infection. Discharge Attestations MANAGER HEART FAILURE Time Spent in Discharge Care*: less than 30 min Time Spent in Smoking Cessation: Time spent discussing smoking cessation with patient: 3 to 10 minutes Status at Discharge: Overall status at discharge: patient is progressing back to baseline Coding Level of Care Code Acute Bread Panner for [facility] Fwd Diagnoses Gestational hypertension O13.9 Proteinuria affecting O12.10 Status post Z98.891 40 weeks gestation of Z3A.40
[2020-11-22] MEDS: docusate sodium 100 mg Capsule PO (09:19)
[2020-11-22] MEDS: prenatal vitamin Capsule 1 CAP PO (09:19)
[2020-11-22 10:19] VITALS: BP 142/99; PULSE 106; RESP 20; TEMP 36.7; O2SAT 97
== END 2020-11-22 10:10 | disposition home or self-care (01) | DRG 788 ==
PROVIDERS: Family Medicine; Admitting Provider Family Medicine; PCP Family Medicine; Visit Provider Family Medicine
PROC: 10D00Z1 Extraction of Products of Conception, Low, Open Approach (ICD-10-PCS; CPT 59514; principal; 2020-11-20 03:30)
DX: O48.0 Post-term pregnancy (principal); Z3A.40 40 weeks gestation of pregnancy; Z37.0 Single live birth; O76 Abnormality in fetal heart rate and rhythm complicating labor and delivery; O77.0 Labor and delivery complicated by meconium in amniotic fluid; O13.4 Gestational [pregnancy-induced] hypertension without significant proteinuria, complicating childbirth; O14.94 Unspecified pre-eclampsia, complicating childbirth
CPT/HCPCS: 12345; 36415; 59025; 59409; 80053; 82570; 83735; 84156; 84550; 85025; 85027; J0690; J1885; J2250; J2274; J2370; J2405; J2550; J3475; J3490; J7030; J7040

== ENCOUNTER 2021-02-24 23:49 | Emergency (ER) | payer MEDICAID, SELFPAY ==
[2021-02-24 23:54] VITALS: BP 141/86; PULSE 98; RESP 18; TEMP 37; O2SAT 98; BMI 36.2
[2021-02-25] VITALS (10 sets, daily range): BP systolic 114–126; BP diastolic 81–87; PULSE 72–89; RESP 14–18; TEMP 36.8–36.9; O2SAT 97–99
--- NOTE | 2021-02-25 00:10 | USR_ITS ---
PROCEDURE INFORMATION: Exam: US Abdomen, Limited; Right Upper Quadrant Exam date and time: 02/25/2021 2:36 AM Age: 20 years old Clinical indication: Abdominal pain; Acute; Additional info: N/v upper abd pain TECHNIQUE: Imaging protocol: US abdomen. Real time ultrasound with image documentation. Limited exam focused on the right upper quadrant. COMPARISON: US gall bladder [id number] 04/13/2018 2:50 AM FINDINGS: Liver: There is hyperechoic parenchyma compatible with fatty infiltration. Gallbladder: There are hyperechoic foci exhibiting acoustic shadowing seen within the gallbladder lumen compatible with gallstones. There is no evidence for gallbladder wall thickening. There is a positive sonographic Duarte sign elicited. Common bile duct: Normal. No stones. No dilation. Pancreas: Visualized pancreas is unremarkable. Right kidney: Normal. No mass. No hydronephrosis. US/US gall bladder [id number] IMPRESSION: 1. Gallstones without evidence of gallbladder wall thickening or pericholecystic fluid. However, there is a positive sonographic Duarte sign elicited and mild gallstone cholecystitis cannot be entirely excluded. 2. Fatty infiltration of the liver
[2021-02-25 02:25] LABS: Add Urine Microscopic? YES; Bilirubin Urine 2+ (Negative); Blood Urine 3+ (Negative); Glucose Urine UA Norm (Normal); Ketones Urine Negative (Negative); Leukocyte Esterase Urine Trace (Negative); Nitrate Urine Negative (Negative); Protein Urine 3+ (Negative); Specific Gravity, Urine 1.015 (1.005-1.030); Sulfosalicylic Acid Urine Positive (Negative); Urine Appearance SL Hazy (CLEAR); Urine Color Yellow (Yellow); Urobilinogen Urine 8 mg/dL (Negative); pH Urine 8 (5-7)
--- NOTE | 2021-02-25 02:26 | PC.NURSE ---
ultrasound in room
[2021-02-25 02:27] LABS: RBC Urine 80-100 /hpf (0-2)
[2021-02-25 02:28] LABS: Add Urine Culture? No; Amorphous Sediment Urine 2+ /hpf; Bacteria Urine 3+ /hpf; Mucus Urine 3+ /hpf; Squamous Epithelial Cell Urine >100 /hpf (0-5)
[2021-02-25 02:36] LABS: Basophils # 0.1 10^3/uL (0.0-0.1); Basophils % 0.9 %; Eosinophils # 0.2 10^3/uL (0.0-0.8); Eosinophils % 2.5 %; Hematocrit 41.3 % (37.0-47.0); Hemoglobin 13.7 g/dL (11.5-15.3); Lymphocytes # 2.8 10^3/uL (1.5-6.5); Lymphocytes % 35.5 %; Mean Corpuscular HGB Conc 33.2 g/dL (30.0-36.0); Mean Corpuscular Hemoglobin 29.7 pg (28.0-34.0); Mean Corpuscular Volume 89.6 fL (81-99); Monocytes # 0.4 10^3/uL (0.2-0.9); Monocytes % 4.7 %; Neutrophils # 4.43 10^3/uL (1.8-8.0); Nucleated Red Blood Cells % 0 %; Platelet Count 252 10^3/cmm (130-400); Red Blood Count 4.61 10^6/uL (4.1-5.3); Red Cell Distribution Width 12.7 % (12.1-15.1); White Blood Count 7.9 10^3/uL (4.5-13.0)
[2021-02-25 02:51] LABS: Alanine Aminotransferase 386 U/L (0-33); Albumin Level 3.6 g/dL (3.5-5.2); Alkaline Phosphatase 371 IU/L (35-105); Anion Gap 12.1 (5-19); Aspartate Amino Transferase 451 U/L (0-32); Blood Urea Nitrogen 12 mg/dL (6-20); Calcium 8.4 mg/dL (8.5-10.5); Carbon Dioxide 26 mmol/L (22-29); Chloride 105 mmol/L (98-107); Globulin 2.7 g/dL (1.3-4.6); Glomerular Filtration Rate 91.4 mL/min (90-130); Glucose 89 mg/dL (65-115); Lipase 23 U/L (13-60); Osmolality Calculated 287 mOsm/kg (285-295); Potassium 4.1 mmol/L (3.5-5.1); Sodium 139 mmol/L (136-145); Total Bilirubin 1.7 mg/dL (0.15-1.2); Total Protein 6.3 g/dL (6.6-8.7)
[2021-02-25 02:54] LABS: HCG, Serum Qual Negative (Negative)
--- NOTE | 2021-02-25 03:01 | W.ED.ABDPA2 ---
Documented by User: Gómez Stern DO 02/25/21 07:24 HPI - Abdominal Pain General: Chief Complaint: Abdominal Pain Stated Complaint: ABDOMEN PAIN,BACK PAIN Time Seen by Provider: 02/25/21 01:24 History of Present Illness: HPI narrative: 20-year-old female presents with epigastric pain radiating into her back since night. She has had episodes of nausea and vomiting. No bloody emesis. Pain worsened tonight. She has a history of gallstones. MD elicited complaint: abdominal pain Pertinent past history: other Onset (ago): hour(s) (24) Pain Consistency: constant Location: Epigastric and RUQ Severity: severe Quality: stabbing and aching Radiation: RUQ Relieving factors: nothing Associated Symptoms: Reports nausea and vomiting; Denies change in bowel habits, change in stool character, constipation, diarrhea, fever(s) and hematuria Related Data: Date of Last Menstrual Period: 02/17/20 Review of Systems Const: Denies: fever(s) Card: Reports: palpitations; Denies: chest pain Resp: Denies: dyspnea, productive cough or non-productive cough GI: Reports: nausea and vomiting; Denies: diarrhea, constipation, change in bowel habits or change in stool character : Denies: hematuria Neuro: Denies: headache(s) or weakness in extremities PFSH ED PFSH: Medical History (Updated 02/27/21 @ 01:27 by BARRERA Jasmine) Hypertension Social History Smoking and tobacco status: current every day smoker Female Reproductive History: Date of last menstrual period: 02/17/20 : 1 Physical Exam Const: GENERAL APPEARANCE: well developed; not in distress ORIENTATION/CONSCIOUSNESS: Yes oriented to person, Yes oriented to place and Yes oriented to time HENMT: COMMON NORMALS: normocephalic, external ears normal and Normal external nose present HEAD & SCALP: normocephalic FACE & SINUS: normal facial exam NOSE: Normal external nose present and No nasal discharge present EXTERNAL EAR: Yes external ears normal Eye: COMMON NORMALS: Equal, round and reactive pupils present, EOMs intact bilaterally and conjunctivae normal EYELID: eyelids normal CONJUNCTIVA: Yes conjunctivae normal PUPIL: Yes Equal, round and reactive pupils present Neck/C-Spine: GENERAL: No tracheal deviation Chest: COMMONS NORMALS: normal inspection of the chest CHEST: No tenderness Resp: COMMON NORMALS: clear to auscultation bilaterally EFFORT & INSPECTION: No tachypneic, No respiratory distress, No retractions, No uses accessory muscles and No tracheal deviation AUSCULTATION: clear to auscultation bilaterally, no rhonchi, no wheezes and lung sounds not diminished Cardio: COMMON NORMALS: regular rate and regular rhythm RATE: regular rate RHYTHM: regular rhythm HEART SOUNDS: no murmurs PERIPHERAL PULSES: radial pulses present GI: INSPECTION: No abdominal distension AUSCULTATION: No Hyperactive bowel sounds present and No Hypoactive bowel sounds present PALPATION: Yes Tenderness to palpation present (GI) (epigastric) Details: RUQ, No Guarding due to palpation present (GI) and No Rigid due to palpation : COMMON NORMALS: Yes no CVA tenderness BLADDER/KIDNEY EXAM: Yes no CVA tenderness Back/Pelvis: COMMON NORMALS: no CVA tenderness Neuro: SENSORIUM/ORIENTATION: Yes oriented to person, Yes oriented to place and Yes oriented to time Psych: COMMON NORMALS: mental status grossly normal Skin: COMMON NORMALS: no rashes or lesions noted GENERAL SKIN EXAM: no rashes or lesions noted Course Vital Signs: Vital signs: Vital Signs Temperature 98.4 F 02/25/21 09:17 Pulse Rate 73 02/25/21 09:17 Respiratory Rate 18 02/25/21 09:17 Blood Pressure 123/86 02/25/21 09:17 Pulse Oximetry 99 02/25/21 09:17 MDM - Abdominal Pain MDM Narrative: Medical decision making narrative: 20-year-old female with right upper quadrant pain. She has reproducible Duarte sign by ultrasound. Her laboratory is essentially normal, except for her liver enzymes which are significantly elevated including a bilirubin of 1.7, AST and ALT in the 400s and 300s respectively, and alk phos in the 300s. Her bile ducts apparently measure normal by ultrasound. Despite this, no cause for hyperbilirubinemia has been found including a negative hepatitis panel. Her previous bilirubin was 0.2. With her right upper quadrant pain, felt necessary to obtain MRCP. Read is pending. She will be checked out to Dr. Francois at shift change to follow-up on results and further treatment. Lab Data: Labs: Lab Results 02/25/21 02/25/2102/25/21 Range/Units 01:30 02:18 02:18 WBC 7.9 (4.5-13.0) 10^3/ uL RBC 4.61 (4.1-5.3) 10^6/u L Hgb 13.7 (11.5-15.3) g/dL Hct 41.3 (37.0-47.0) % MCV 89.6 (81-99) fL MCH 29.7 (28.0-34.0) pg MCHC 33.2 (30.0-36.0) g/dL RDW 12.7 (12.1-15.1) % Plt Count 252 (130-400) 10^3/c mm MPV 11.0 H (7.4-10.4) fL Neut % (Auto) 56.0 % Lymph % (Auto) 35.5 % [place] % (Auto) 4.7 % Eos % (Auto) 2.5 % Baso % (Auto) 0.9 % Neut # (Auto) 4.43 (1.8-8.0) 10^3/u L Lymph # (Auto) 2.8 (1.5-6.5) 10^3/u L [place] # (Auto) 0.4 (0.2-0.9) 10^3/u L Eos # (Auto) 0.2 (0.0-0.8) 10^3/u L Baso # (Auto) 0.1 (0.0-0.1) 10^3/u L Nucleated RBC % (a uto) 0 % Nucleated RBCs # 0.0 /100WBC Sodium 139 (136-145) mmol/L Potassium 4.1 (3.5-5.1) mmol/L Chloride 105 (98-107) mmol/L Carbon Dioxide 26 (22-29) mmol/L Anion Gap 12.1 (5-19) BUN 12 (6-20) mg/dL Creatinine 0.8 (0.5-0.9) mg/dL GFR Calculation 91.4 (90-130) mL/min Glucose 89 (65-115) mg/dL Calculated Osmolal ity 287 (285-295) mOsm/k g Calcium 8.4 L (8.5-10.5) mg/dL Total Bilirubin 1.7 H (0.15-1.2) mg/dL AST 451 H (0-32) U/L ALT 386 H (0-33) U/L Alkaline Phosphata se 371 H (35-105) IU/L Total Protein 6.3 L (6.6-8.7) g/dL Albumin 3.6 (3.5-5.2) g/dL Globulin 2.7 (1.3-4.6) g/dL Lipase 23 (13-60) U/L HCG, Qual (Negative) Urine Color Yellow (Yellow) Urine Appearance Sl hazy (CLEAR) Urine pH 8 H (5-7) Ur Specific Gravit y 1.015 (1.005-1.030) Urine Protein 3+ H (Negative) Urine Glucose (UA) Norm (Normal) Urine Ketones Negative (Negative) Urine Blood 3+ H (Negative) Urine Nitrate Negative (Negative) Urine Bilirubin 2+ H (Negative) Prot Sulfosalicyli c Acd Positive (Negative) Urine Urobilinogen 8 H (Negative) mg/dL Ur Leukocyte Brigida ase Trace H (Negative) Urine RBC 80-100 H (0-2) /hpf Urine WBC 5-10 H (0-5) /hpf Ur Squamous Epith Cells >100 H (0-5) /hpf Amorphous Sediment 2+ /hpf Urine Bacteria 3+ H (NONE) /hpf Urine Mucus 3+ /hpf Hepatitis A IgM Ab (Nonreactive) Hep Bs Antigen (Nonreactive) Hep B Core IgM Ab (Nonreactive) Hepatitis C Antibo dy (Nonreactive) 02/25/21 02/25/21 Range/Units 02:18 02:18 WBC (4.5-13.0) 10^3/ uL RBC (4.1-5.3) 10^6/u L Hgb (11.5-15.3) g/dL Hct (37.0-47.0) % MCV (81-99) fL MCH (28.0-34.0) pg MCHC (30.0-36.0) g/dL RDW (12.1-15.1) % Plt Count (130-400) 10^3/c mm MPV (7.4-10.4) fL Neut % (Auto) % Lymph % (Auto) % [place] % (Auto) % Eos % (Auto) % Baso % (Auto) % Neut # (Auto) (1.8-8.0) 10^3/u L Lymph # (Auto) (1.5-6.5) 10^3/u L [place] # (Auto) (0.2-0.9) 10^3/u L Eos # (Auto) (0.0-0.8) 10^3/u L Baso # (Auto) (0.0-0.1) 10^3/u L Nucleated RBC % (a uto) % Nucleated RBCs # /100WBC Sodium (136-145) mmol/L Potassium (3.5-5.1) mmol/L Chloride (98-107) mmol/L Carbon Dioxide (22-29) mmol/L Anion Gap (5-19) BUN (6-20) mg/dL Creatinine (0.5-0.9) mg/dL GFR Calculation (90-130) mL/min Glucose (65-115) mg/dL Calculated Osmolal ity (285-295) mOsm/k g Calcium (8.5-10.5) mg/dL Total Bilirubin (0.15-1.2) mg/dL AST (0-32) U/L ALT (0-33) U/L Alkaline Phosphata se (35-105) IU/L Total Protein (6.6-8.7) g/dL Albumin (3.5-5.2) g/dL Globulin (1.3-4.6) g/dL Lipase (13-60) U/L HCG, Qual Negative (Negative) Urine Color (Yellow) Urine Appearance (CLEAR) Urine pH (5-7) Ur Specific Gravit y (1.005-1.030) Urine Protein (Negative) Urine Glucose (UA) (Normal) Urine Ketones (Negative) Urine Blood (Negative) Urine Nitrate (Negative) Urine Bilirubin (Negative) Prot Sulfosalicyli c Acd (Negative) Urine Urobilinogen (Negative) mg/dL Ur Leukocyte Brigida ase (Negative) Urine RBC (0-2) /hpf Urine WBC (0-5) /hpf Ur Squamous Epith Cells (0-5) /hpf Amorphous Sediment /hpf Urine Bacteria (NONE) /hpf Urine Mucus /hpf Hepatitis A IgM Ab Non-reactive (Nonreactive) Hep Bs Antigen Non-reactive (Nonreactive) Hep B Core IgM Ab Non-reactive (Nonreactive) Hepatitis C Antibo dy Non-reactive (Nonreactive) Discharge Plan Discharge Patient Disposition: Home Clinical Impression: Cystitis Cholelithiasis Qualifiers: Cholelithiasis location: gallbladder Cholecystitis presence: without cholecystitis Biliary obstruction: without biliary obstruction Qualified Code(s): K80.20 - Calculus of gallbladder without cholecystitis without obstruction Condition: Stable Prescriptions: New Cipro 500 mg tablet 500 mg PO BID Qty: 10 RF: 0 Zofran 4 mg tablet 4 mg PO Q6H PRN (Reason: nausea and vomiting) Qty: 1 RF: 0 No Action medroxyprogesterone 150 mg/mL suspension 150 mg IM Q90D RF: 0 Reglan 10 mg tablet 10 mg PO Q6H 7 Days Qty: 15 RF: 0 hydrocodone-acetaminophen 5-325 mg tablet 1 tab PO Q4H PRN (Reason: pain) Qty: 20 RF: 0 Discharge Orders: Discharge ED (Routine); Ordered 02/25/21 Ordered By: Trevor Francois Referrals: Luis Vega MD [Primary Care Provider] - Discharge Diet: Usual diet Discharge Activity: Increase activity as tolerated Patient Instructions: Opioid Safety Activity Restrictions/Additional Instructions: Case management will call to make an appointment with Dr. Castillo. Sign Out Sign Out Data: Patient Sign Out occurred on 02/25/21 at 08:34. Patient's care was discussed, and care was transferred from to Trevor Francois DO. Coding Level of Care Code ED Phlebotomy Lab Assistant for Chg Fwd Exam Comprehensive Documented by User: Trevor Francois DO 03/02/21 08:30 HPI - Abdominal Pain General: Chief Complaint: Abdominal Pain Stated Complaint: ABDOMEN PAIN,BACK PAIN Time Seen by Provider: 02/25/21 01:24 PFSH ED PFSH: Medical History (Updated 02/27/21 @ 01:27 by BARRERA Jasmine) Hypertension Social History Smoking and tobacco status: current every day smoker Course Vital Signs: Vital signs: Vital Signs Temperature 98.4 F 02/25/21 09:17 Pulse Rate 73 02/25/21 09:17 Respiratory Rate 18 02/25/21 09:17 Blood Pressure 123/86 02/25/21 09:17 Pulse Oximetry 99 02/25/21 09:17 MDM - Abdominal Pain MDM Narrative: Medical decision making narrative: Is evidence of cholelithiasis without cholecystitis. Patient does have a cystitis we will treat that discussed diet will refer her to surgery at this point there is nothing that would indicate need for emergent cholecystectomy. Lab Data: Labs: Lab Results 02/25/21 02/25/21 02/25/21 Range/Units 01:30 02:18 02:18 WBC 7.9 (4.5-13.0) 10^3/ uL RBC 4.61 (4.1-5.3) 10^6/u L Hgb 13.7 (11.5-15.3) g/dL Hct 41.3 (37.0-47.0) % MCV 89.6 (81-99) fL MCH 29.7 (28.0-34.0) pg MCHC 33.2 (30.0-36.0) g/dL RDW 12.7 (12.1-15.1) % Plt Count 252 (130-400) 10^3/c mm MPV 11.0 H (7.4-10.4) fL Neut % (Auto) 56.0 % Lymph % (Auto) 35.5 % [place] % (Auto) 4.7 % Eos % (Auto) 2.5 % Baso % (Auto) 0.9 % Neut # (Auto) 4.43 (1.8-8.0) 10^3/u L Lymph # (Auto) 2.8 (1.5-6.5) 10^3/u L [place] # (Auto) 0.4 (0.2-0.9) 10^3/u L Eos # (Auto) 0.2 (0.0-0.8) 10^3/u L Baso # (Auto) 0.1 (0.0-0.1) 10^3/u L Nucleated RBC % (a uto) 0 % Nucleated RBCs # 0.0 /100WBC Sodium 139 (136-145) mmol/L Potassium 4.1 (3.5-5.1) mmol/L Chloride 105 (98-107) mmol/L Carbon Dioxide 26 (22-29) mmol/L Anion Gap 12.1 (5-19) BUN 12 (6-20) mg/dL Creatinine 0.8 (0.5-0.9) mg/dL GFR Calculation 91.4 (90-130) mL/min Glucose 89 (65-115) mg/dL Calculated Osmolal ity 287 (285-295) mOsm/k g Calcium 8.4 L (8.5-10.5) mg/dL Total Bilirubin 1.7 H (0.15-1.2) mg/dL AST 451 H (0-32) U/L ALT 386 H (0-33) U/L Alkaline Phosphata se 371 H (35-105) IU/L Total Protein 6.3 L (6.6-8.7) g/dL Albumin 3.6 (3.5-5.2) g/dL Globulin 2.7 (1.3-4.6) g/dL Lipase 23 (13-60) U/L HCG, Qual (Negative) Urine Color Yellow (Yellow) Urine Appearance Sl hazy (CLEAR) Urine pH 8 H (5-7) Ur Specific Gravit y 1.015 (1.005-1.030) Urine Protein 3+ H (Negative) Urine Glucose (UA) Norm (Normal) Urine Ketones Negative (Negative) Urine Blood 3+ H (Negative) Urine Nitrate Negative (Negative) Urine Bilirubin 2+ H (Negative) Prot Sulfosalicyli c Acd Positive (Negative) Urine Urobilinogen 8 H (Negative) mg/dL Ur Leukocyte Brigida ase Trace H (Negative) Urine RBC 80-100 H (0-2) /hpf Urine WBC 5-10 H (0-5) /hpf Ur Squamous Epith Cells >100 H (0-5) /hpf Amorphous Sediment 2+ /hpf Urine Bacteria 3+ H (NONE) /hpf Urine Mucus 3+ /hpf Hepatitis A IgM Ab (Nonreactive) Hep Bs Antigen (Nonreactive) Hep B Core IgM Ab (Nonreactive) Hepatitis C Antibo dy (Nonreactive) 02/25/21 02/25/21 Range/Units 02:18 02:18 WBC (4.5-13.0) 10^3/ uL RBC (4.1-5.3) 10^6/u L Hgb (11.5-15.3) g/dL Hct (37.0-47.0) % MCV (81-99) fL MCH (28.0-34.0) pg MCHC (30.0-36.0) g/dL RDW (12.1-15.1) % Plt Count (130-400) 10^3/c mm MPV (7.4-10.4) fL Neut % (Auto) % Lymph % (Auto) % [place] % (Auto) % Eos % (Auto) % Baso % (Auto) % Neut # (Auto) (1.8-8.0) 10^3/u L Lymph # (Auto) (1.5-6.5) 10^3/u L [place] # (Auto) (0.2-0.9) 10^3/u L Eos # (Auto) (0.0-0.8) 10^3/u L Baso # (Auto) (0.0-0.1) 10^3/u L Nucleated RBC % (a uto) % Nucleated RBCs # /100WBC Sodium (136-145) mmol/L Potassium (3.5-5.1) mmol/L Chloride (98-107) mmol/L Carbon Dioxide (22-29) mmol/L Anion Gap (5-19) BUN (6-20) mg/dL Creatinine (0.5-0.9) mg/dL GFR Calculation (90-130) mL/min Glucose (65-115) mg/dL Calculated Osmolal ity (285-295) mOsm/k g Calcium (8.5-10.5) mg/dL Total Bilirubin (0.15-1.2) mg/dL AST (0-32) U/L ALT (0-33) U/L Alkaline Phosphata se (35-105) IU/L Total Protein (6.6-8.7) g/dL Albumin (3.5-5.2) g/dL Globulin (1.3-4.6) g/dL Lipase (13-60) U/L HCG, Qual Negative (Negative) Urine Color (Yellow) Urine Appearance (CLEAR) Urine pH (5-7) Ur Specific Gravit y (1.005-1.030) Urine Protein (Negative) Urine Glucose (UA) (Normal) Urine Ketones (Negative) Urine Blood (Negative) Urine Nitrate (Negative) Urine Bilirubin (Negative) Prot Sulfosalicyli c Acd (Negative) Urine Urobilinogen (Negative) mg/dL Ur Leukocyte Brigida ase (Negative) Urine RBC (0-2) /hpf Urine WBC (0-5) /hpf Ur Squamous Epith Cells (0-5) /hpf Amorphous Sediment /hpf Urine Bacteria (NONE) /hpf Urine Mucus /hpf Hepatitis A IgM Ab Non-reactive (Nonreactive) Hep Bs Antigen Non-reactive (Nonreactive) Hep B Core IgM Ab Non-reactive (Nonreactive) Hepatitis C Antibo dy Non-reactive (Nonreactive) Discharge Plan Discharge Patient Disposition: Home Clinical Impression: Cystitis Cholelithiasis Qualifiers: Cholelithiasis location: gallbladder Cholecystitis presence: without cholecystitis Biliary obstruction: without biliary obstruction Qualified Code(s): K80.20 - Calculus of gallbladder without cholecystitis without obstruction Condition: Stable Prescriptions: New Cipro 500 mg tablet 500 mg PO BID Qty: 10 RF: 0 Zofran 4 mg tablet 4 mg PO Q6H PRN (Reason: nausea and vomiting) Qty: 1 RF: 0 No Action medroxyprogesterone 150 mg/mL suspension 150 mg IM Q90D RF: 0 Reglan 10 mg tablet 10 mg PO Q6H 7 Days Qty: 15 RF: 0 hydrocodone-acetaminophen 5-325 mg tablet 1 tab PO Q4H PRN (Reason: pain) Qty: 20 RF: 0 Discharge Orders: Discharge ED (Routine); Ordered 02/25/21 Ordered By: Trevor Francois Referrals: Luis Vega MD [Primary Care Provider] - Discharge Diet: Usual diet Discharge Activity: Increase activity as tolerated Patient Instructions: Opioid Safety Activity Restrictions/Additional Instructions: Case management will call to make an appointment with Dr. Castillo. Sign Out Sign Out Data: Patient Sign Out occurred on 02/25/21 at 08:34. Patient's care was discussed, and care was transferred from to Trevor Francois DO. Coding Level of Care Code ED Phlebotomy Lab Assistant for g Fwd Exam Comprehensive
[2021-02-25] MEDS: ketorolac 30 mg/mL INJ IVP (03:05)
[2021-02-25] MEDS: morphine 4 mg/mL SDV 1 mL IVP (03:06)
[2021-02-25] MEDS: ondansetron 2 mg/ML SDV 2 mL 4 MG IVP (03:07)
--- NOTE | 2021-02-25 04:11 | MRR_ITS ---
PROCEDURE INFORMATION: Exam: MR Abdomen Without Contrast Exam date and time: 02/25/2021 6:36 AM Age: 20 years old Clinical indication: Abdominal pain; Localized; Right upper quadrant (ruq); Additional info: Ruq pain, elevated lfts TECHNIQUE: Imaging protocol: MR of the abdomen without contrast. COMPARISON: US gall bladder [id number] 02/25/2021 2:34 AM FINDINGS: Liver: No mass. Gallbladder and bile ducts: Multiple gallstones are present. No pericholecystic inflammatory changes to suggest cholecystitis. No intra or extrahepatic biliary ductal dilatation seen. No evidence of filling defect to suggest choledocholithiasis. Pancreas: Unremarkable. No ductal dilation. Spleen: Mildly enlarged spleen measuring 15.3 cm in AP dimension. Adrenal glands: Unremarkable. No mass. Kidneys and ureters: Unremarkable. No solid mass. No hydronephrosis. Stomach and bowel: There is diverticulosis without evidence of diverticulitis. Intraperitoneal space: No free fluid. Arteries: No abdominal aortic aneurysm. Bones/joints: Unremarkable. Soft tissues: Unremarkable. MR/MR MRCP [id number] IMPRESSION: 1. Cholelithiasis without evidence of cholecystitis. 2. No choledocholithiasis identified. 3. Mild splenomegaly.
[2021-02-25 04:44] LABS: Hepatitis A Antibody IgM Non-Reactive (Nonreactive); Hepatitis B Core IgM Non-Reactive (Nonreactive); Hepatitis B Surface Antigen Non-Reactive (Nonreactive); Hepatitis C Virus Antibody Non-Reactive (Nonreactive)
--- NOTE | 2021-02-25 07:43 | PC.NURSE ---
Received report after pt returned back from MRI. Pt stable and pain is located in upper abdomen. Rates 7/10. Continue to monitor.
--- NOTE | 2021-02-25 09:04 | PC.NURSE ---
Dr Francois ordered a Cath UA, pt is Refusing.
--- NOTE | 2021-02-27 11:02 | DCPLANNER ---
Addendum entered by Joceline Wiggins 02/28/21 12:14: security operations manager was contacted by [facility] General Surgery, case preparer and liner was told that when clinic contacted patient to schedule an appointment, patient stated that no appointment was necessary at this time due to patient having her gallbladder removed today. Original Note: security operations manager had message to schedule a follow up appointment for patient with general surgery for elevated LFTs/gallstones. security operations manager emailed Enrique at [facility] General Surgery. Patients information will be printed and reviewed. Clinic will call patient with appointment information.
== END 2021-02-25 09:21 | disposition home or self-care (01) ==
PROVIDERS: Emergency Medicine; Nurse Practitioner Family; Emergency Provider Family Medicine; PCP Family Medicine
DX: K80.20 Calculus of gallbladder without cholecystitis without obstruction (principal); N30.90 Cystitis, unspecified without hematuria; I10 Essential (primary) hypertension; F17.210 Nicotine dependence, cigarettes, uncomplicated
CPT/HCPCS: 74181; 76705; 80053; 80074; 81001; 83690; 84703; 85025; 96374; 96375; 99283; J1885; J2270; J2405

== ENCOUNTER 2021-02-26 22:18 | Emergency (ER) | payer MEDICAID, SELFPAY ==
[2021-02-26 22:20] VITALS: BP 150/98; PULSE 103; RESP 18; TEMP 36.7; O2SAT 99; BMI 36.2
--- NOTE | 2021-02-26 22:28 | ED_ITS ---
Documented by User: BARRERA Jasmine 02/27/21 01:40 HPI - Abdominal Pain General: Chief Complaint: Abdominal Pain Stated Complaint: gallbladder issues/seen saturday for same thing Time Seen by Provider: 02/26/21 22:21 Source: patient Mode of arrival: ambulatory Limitations: no limitations History of Present Illness: HPI narrative: Patient is a 20-year-old female who presents to ED today for re-evaluation of her upper abdominal pain. Patient was seen here yesterday for similar symptoms and subsequently discharged. Pain intially began on . At the time she was found to have elevated LFTs. She had a gallbladder ultrasound that showed cholelithiasis without evidence for cholecystitis. She underwent MRCP which did not show any choledocholithiasis. Patient states she continues to have pain. She tells me the pain medications she was sent home with yesterday was an unsigned prescription thus pharmacy would not fill. She continues to have normal bowel movements. She has had countless episodes of non-bloody emesis. She has not been running fevers. She reports pain throughout her upper abdomen but mainly to her epigastric region that radiates into her back. MD elicited complaint: abdominal pain Pertinent past history: other (cholelithiasis) Onset (ago): day(s) Pain Consistency: constant Location: Epigastric, LUQ and RUQ Severity: severe Quality: sharp Radiation: back Migration to: no migration Relieving factors: nothing Associated Symptoms: Reports nausea and vomiting; Denies change in bowel habits, change in stool character, chills, diarrhea, dysuria, fever(s), hematochezia, hematemesis, melena and syncope Related Data: Date of Last Menstrual Period: 02/17/20 Patient : No Review of Systems Const: Denies: fever(s), chills, body aches, fatigue or malaise Eyes: Denies: change in vision or blurry vision Card: Denies: chest pain, palpitations, irregular heart rhythm, lightheadedness, syncope or dyspnea on exertion Resp: Denies: dyspnea, productive cough or pain on inspiration GI: Reports: abdominal pain, nausea and vomiting; Denies: hematemesis, diarrhea, change in bowel habits, change in stool character, hematochezia or melena : Denies: flank pain or dysuria Musc: Reports: back pain; Denies: neck pain or joint pain Skin/Breast: Denies: rash Neuro: Denies: headache(s), numbness in extremities, weakness in extremities or sensory changes PFSH ED PFSH: Medical History (Updated 02/27/21 @ 01:27 by BARRERA Jasmine) Hypertension Social History Smoking and tobacco status: current every day smoker Female Reproductive History: Date of last menstrual period: 02/17/20 Physical Exam Const: COMMON NORMALS: patient oriented x3, no limitations and alert GENERAL APPEARANCE: cooperative and in distress (looks like she doesn't feel well) NUTRITIONAL APPEARANCE: obese ORIENTATION/CONSCIOUSNESS: Yes awake, Yes oriented to person, Yes oriented to place and Yes oriented to time HENMT: COMMON NORMALS: normocephalic and atraumatic HEAD & SCALP: normocephalic and atraumatic Chest: COMMONS NORMALS: normal inspection of the chest and normal palpation of entire chest wall Resp: COMMON NORMALS: normal respiratory effort and clear to auscultation bilaterally AUSCULTATION: clear to auscultation bilaterally Cardio: COMMON NORMALS: regular rate and regular rhythm RATE: regular rate RHYTHM: regular rhythm GI: COMMON NORMALS: Normal to inspection, nondistended, normoactive bowel sounds present, Soft to palpation, No hepatosplenomegaly present and no masses PALPATION: Yes Soft to palpation, Yes Tenderness to palpation present (GI) Details: RUQ and other (epigastric ) and Yes No hepatosplenomegaly present : COMMON NORMALS: Yes no CVA tenderness BLADDER/KIDNEY EXAM: Yes no CVA tenderness Back/Pelvis: COMMON NORMALS: no CVA tenderness, thoracic and lumbar spine normal to inspection, no thoracic nor lumbar tenderness and thoraco-lumbar ROM normal Neuro: COMMON NORMALS: patient oriented x3 SENSORIUM/ORIENTATION: Yes al ert, Yes oriented to person, Yes oriented to place and Yes oriented to time Skin: COMMON NORMALS: no rashes or lesions noted GENERAL SKIN EXAM: no rashes or lesions noted Course Vital Signs: Vital signs: Vital Signs Temperature 98.0 F 02/26/21 22:20 Pulse Rate 90 02/27/21 01:36 Respiratory Rate 17 02/27/21 01:36 Blood Pressure 119/85 02/27/21 01:36 Pulse Oximetry 95 02/27/21 01:36 MDM - Abdominal Pain MDM Narrative: Medical decision making narrative: Patient's pain was easily controlled here after one dose of morphine. She is not tachycardic or febrile. She has a normal white count. AST and ALT are lower today than they were yesterday. TBILI is slightly increased to 1.9 from 1.7. Alk phos is slightly increased to 408 from 371. US still does not show any wall thickening or pericholecystic fluid. There was some mild biliary tree dilatation that report states is new however patient just underwent MRCP imaging yesterday that was negative. I discussed this with Dr. Stern who does not feel we need to repeat any form of imaging today. Patient will be given new script for pain medications. Will switch nausea meds as she doesn't feel zofran was helping much. Information placed to get her set up with gen surg this week. Strict return to ED precautions given. Lab Data: Labs: Lab Results 02/26/21 02/26/21 02/26/21 Range/Units 22:50 22:50 22:50 WBC 10.0 (4.5-13.0) 10^3/ uL RBC 4.64 (4.1-5.3) 10^6/u L Hgb 13.8 (11.5-15.3) g/dL Hct 41.4 (37.0-47.0) % MCV 89.2 (81-99) fL MCH 29.7 (28.0-34.0) pg MCHC 33.3 (30.0-36.0) g/dL RDW 12.7 (12.1-15.1) % Plt Count 272 (130-400) 10^3/c mm MPV 11.1 H (7.4-10.4) fL Neut % (Auto) 59.5 % Lymph % (Auto) 31.5 % Briscoe % (Auto) 5.6 % Eos % (Auto) 2.2 % Baso % (Auto) 0.8 % Neut # (Auto) 5.97 (1.8-8.0) 10^3/u L Lymph # (Auto) 3.2 (1.5-6.5) 10^3/u L Briscoe # (Auto) 0.6 (0.2-0.9) 10^3/u L Eos # (Auto) 0.2 (0.0-0.8) 10^3/u L Baso # (Auto) 0.1 (0.0-0.1) 10^3/u L Nucleated RBC % (a uto) 0 % Nucleated RBCs # 0.0 /100WBC PT (12.1-14.9) SECO NDS INR (0.8-1.2) Sodium 139 (136-145) mmol/L Potassium 3.8 (3.5-5.1) mmol/L Chloride 105 (98-107) mmol/L Carbon Dioxide 24 (22-29) mmol/L Anion Gap 13.8 (5-19) BUN 10 (6-20) mg/dL Creatinine 0.8 (0.5-0.9) mg/dL GFR Calculation 91.4 (90-130) mL/min Glucose 106 (65-115) mg/dL Calculated Osmolal ity 287 (285-295) mOsm/k g Calcium 8.2 L (8.5-10.5) mg/dL Total Bilirubin 1.9 H (0.15-1.2) mg/dL AST 129 H (0-32) U/L ALT 317 H (0-33) U/L Alkaline Phosphata se 408 H (35-105) IU/L Total Protein 5.8 L (6.6-8.7) g/dL Albumin 3.4 L (3.5-5.2) g/dL Globulin 2.4 (1.3-4.6) g/dL Lipase 17 (13-60) U/L HCG, Qual Negative (Negative) Urine Color (Yellow) Urine Appearance (CLEAR) Urine pH (5-7) Ur Specific Gravit y (1.005-1.030) Urine Protein (Negative) Urine Glucose (UA) (Normal) Urine Ketones (Negative) Urine Blood (Negative) Urine Nitrate (Negative) Urine Bilirubin (Negative) Urine Urobilinogen (Negative) mg/dL Ur Leukocyte Brigida ase (Negative) Urine RBC (0-2) /hpf Urine WBC (0-5) /hpf Ur Squamous Epith Cells (0-5) /hpf Amorphous Sediment /hpf Urine Bacteria (NONE) /hpf Hyaline Casts /lpf Urine Mucus /hpf 05/02/21 05/03/21 Range/Units 23:20 01:00 WBC (4.5-13.0) 10^3/ uL RBC (4.1-5.3) 10^6/u L Hgb (11.5-15.3) g/dL Hct (37.0-47.0) % MCV (81-99) fL MCH (28.0-34.0) pg MCHC (30.0-36.0) g/dL RDW (12.1-15.1) % Plt Count (130-400) 10^3/c mm MPV (7.4-10.4) fL Neut % (Auto) % Lymph % (Auto) % Briscoe % (Auto) % Eos % (Auto) % Baso % (Auto) % Neut # (Auto) (1.8-8.0) 10^3/u L Lymph # (Auto) (1.5-6.5) 10^3/u L Briscoe # (Auto) (0.2-0.9) 10^3/u L Eos # (Auto) (0.0-0.8) 10^3/u L Baso # (Auto) (0.0-0.1) 10^3/u L Nucleated RBC % (a uto) % Nucleated RBCs # /100WBC PT 12.30 (12.1-14.9) SECO NDS INR 0.89 (0.8-1.2) Sodium (136-145) mmol/L Potassium (3.5-5.1) mmol/L Chloride (98-107) mmol/L Carbon Dioxide (22-29) mmol/L Anion Gap (5-19) BUN (6-20) mg/dL Creatinine (0.5-0.9) mg/dL GFR Calculation (90-130) mL/min Glucose (65-115) mg/dL Calculated Osmolal ity (285-295) mOsm/k g Calcium (8.5-10.5) mg/dL Total Bilirubin (0.15-1.2) mg/dL AST (0-32) U/L ALT (0-33) U/L Alkaline Phosphata se (35-105) IU/L Total Protein (6.6-8.7) g/dL Albumin (3.5-5.2) g/dL Globulin (1.3-4.6) g/dL Lipase (13-60) U/L HCG, Qual (Negative) Urine Color Linn (Yellow) Urine Appearance Clear (CLEAR) Urine pH 5 (5-7) Ur Specific Gravit y 1.020 (1.005-1.030) Urine Protein 3+ H (Negative) Urine Glucose (UA) Norm (Normal) Urine Ketones 1+ H (Negative) Urine Blood 3+ H (Negative) Urine Nitrate Negative (Negative) Urine Bilirubin 2+ H (Negative) Urine Urobilinogen 4 H (Negative) mg/dL Ur Leukocyte Brigida ase Trace H (Negative) Urine RBC >100 H (0-2) /hpf Urine WBC 5-10 H (0-5) /hpf Ur Squamous Epith Cells 25-40 H (0-5) /hpf Amorphous Sediment 1+ /hpf Urine Bacteria 1+ H (NONE) /hpf Hyaline Casts 5-10 H /lpf Urine Mucus 1+ /hpf Imaging Data ^: US gallbladder: Radiologist's impression: [id number] [address] Ultrasound Report Signed Patient: Valentina Lofton Unit #: [id number] : 2000 Age/Sex: 20 / F ADM Date: 02/26/21 Loc: ER Room/Bed: Attending Dr: Ordering Provider/Ordering MD: Karmen Meier Date of Service: 02/27/21 Procedure(s): US gall bladder [id number] Accession Number(s): [id number] Report Number: [id number] PROCEDURE INFORMATION: Exam: US Abdomen, Limited; Right Upper Quadrant Exam date and time: 02/27/2021 12:25 AM Age: 20 years old Clinical indication: Abdominal pain; Acute; Additional info: Ruq pain; Elevated lfts TECHNIQUE: Imaging protocol: US abdomen. Real time ultrasound with image documentation. Limited exam focused on the right upper quadrant. COMPARISON: US gall bladder [id number] 02/25/2021 2:34 AM FINDINGS: Liver: Slight increased echogenicity of the liver may indicate fatty infiltration. Otherwise unremarkable liver, no focal abnormality. Gallbladder: There are several shadowing gallstones within the gallbladder. No definite gallbladder wall thickening or pericholecystic fluid. The gallbladder does not appear abnormally distended at this time. Technologist states patient was tender over the gallbladder region during scanning. Common bile duct: Mild extra hepatic biliary tree dilation, with common duct measuring about 7 mm. No visible common duct stone by ultrasound. This is a new finding in the interval. Correlation with laboratory/bilirubin levels may be helpful to determine if there is any significant biliary obstruction. Pancreas: Visible pancreas unremarkable. Right kidney: Images of the right kidney show no hydronephrosis. US/US gall bladder [id number] IMPRESSION: 1. Cholelithiasis, see additional details above. 2. Mild biliary tree dilation, a new finding in the interval. 3. Other findings discussed above. Dictated By: Chauncey Bahena MD Signed By: Chauncey Bahena MD Signed Date/Time: 02/27/21103 DD/ 1 Discharge Plan Discharge Patient Disposition: Home Clinical Impression: Elevated LFTs Cholelithiasis Qualifiers: Cholelithiasis location: gallbladder Cholecystitis presence: without cholecystitis Biliary obstruction: without biliary obstruction Qualified Code(s): K80.20 - Calculus of gallbladder without cholecystitis without obstruction Condition: Stable Prescriptions: New Reglan 10 mg tablet 10 mg PO Q6H 7 Days Qty: 15 RF: 0 Changed hydrocodone-acetaminophen 5-325 mg tablet 1 tab PO Q4H PRN (Reason: pain) Qty: 20 RF: 0 No Action medroxyprogesterone 150 mg/mL suspension 150 mg IM Q90D RF: 0 Cipro 500 mg tablet 500 mg PO BID Qty: 10 RF: 0 Zofran 4 mg tablet 4 mg PO Q6H PRN (Reason: nausea and vomiting) Qty: 1 RF: 0 Discharge Orders: Discharge ED (Routine); Ordered 02/27/21 Ordered By: Karmen Meier Referrals: Luis Vega MD [Primary Care Provider] - Patient Instructions: Opioid Safety Activity Restrictions/Additional Instructions: [facility] is committed to fighting the nationwide opiate epidemic. We are providing ALL patients with information regarding opiate safety. If you received opiate pain medication during your stay or if you received a prescription for opiate pain medication-please review this handout. If not, you may disregard. Thank you. Case management should contact you hopefully tomorrow and get you set up an appointment for general surgery. You need to return to the emergency department for worsening or severe pain, repetitive episodes of vomiting, fevers, inability to keep down your medications, or any other concerns you may have. Coding Level of Care Code ED Control Center Operator for Chg Fwd Exam Comprehensive Documented by User: Gómez Stern, 02/27/21 03:29 HPI - Abdominal Pain General: Chief Complaint: Abdominal Pain Stated Complaint: gallbladder issues/seen saturday for same thing Time Seen by Provider: 02/26/21 22:21 [facility] ED PFSH: Medical History (Updated 02/27/21 @ 01:27 by BARRERA Jasmine) Hypertension Social History Smoking and tobacco status: current every day smoker Course Vital Signs: Vital signs: Vital Signs Temperature 98.0 F 02/26/21 22:20 Pulse Rate 90 02/27/21 01:36 Respiratory Rate 17 02/27/21 01:36 Blood Pressure 119/85 02/27/21 01:36 Pulse Oximetry 95 02/27/21 01:36 MDM - Abdominal Pain MDM Narrative: Medical decision making narrative: 20-year-old patient originally seen by Mrs. Meier?ZARA Alexis. I agree with her history, valuation, and treatment. I saw this patient for the same complaint 36 hours or more ago. Her white blood cell count tonight is 10. Her electrolytes are normal. Her liver enzymes are about the same. Her bilirubin is 1.9 tonight, was 1.7 a couple of days ago. Ultrasound findings are essentially the same as prior. She had an MRCP 48 hours ago that showed cholelithiasis, but no cholecystitis and no ductal obstruction. Patient symptoms are much better. As it turns out, she did not fill the pain medication prescription she was given on her last ER visit, and has had no pain medication. She will be sent home with pain medication for tonight, and will fill the prescription in the morning. Case management will refer to general surgery as noted above by the physician mobile sales assistant. Lab Data: Labs: Lab Results 02/26/21 02/26/21 02/26/21 Range/Units 22:50 22:50 22:50 WBC 10.0 (4.5-13.0) 10^3/ uL RBC 4.64 (4.1-5.3) 10^6/u L Hgb 13.8 (11.5-15.3) g/dL Hct 41.4 (37.0-47.0) % MCV 89.2 (81-99) fL MCH 29.7 (28.0-34.0) pg MCHC 33.3 (30.0-36.0) g/dL RDW 12.7 (12.1-15.1) % Plt Count 272 (130-400) 10^3/c mm MPV 11.1 H (7.4-10.4) fL Neut % (Auto) 59.5 % Lymph % (Auto) 31.5 % Briscoe % (Auto) 5.6 % Eos % (Auto) 2.2 % Baso % (Auto) 0.8 % Neut # (Auto) 5.97 (1.8-8.0) 10^3/u L Lymph # (Auto) 3.2 (1.5-6.5) 10^3/u L Briscoe # (Auto) 0.6 (0.2-0.9) 10^3/u L Eos # (Auto) 0.2 (0.0-0.8) 10^3/u L Baso # (Auto) 0.1 (0.0-0.1) 10^3/u L Nucleated RBC % (a uto) 0 % Nucleated RBCs # 0.0 /100WBC PT (12.1-14.9) SECO NDS INR (0.8-1.2) Sodium 139 (136-145) mmol/L Potassium 3.8 (3.5-5.1) mmol/L Chloride 105 (98-107) mmol/L Carbon Dioxide 24 (22-29) mmol/L Anion Gap 13.8 (5-19) BUN 10 (6-20) mg/dL Creatinine 0.8 (0.5-0.9) mg/dL GFR Calculation 91.4 (90-130) mL/min Glucose 106 (65-115) mg/dL Calculated Osmolal ity 287 (285-295) mOsm/k g Calcium 8.2 L (8.5-10.5) mg/dL Total Bilirubin 1.9 H (0.15-1.2) mg/dL AST 129 H (0-32) U/L ALT 317 H (0-33) U/L Alkaline Phosphata se 408 H (35-105) IU/L Total Protein 5.8 L (6.6-8.7) g/dL Albumin 3.4 L (3.5-5.2) g/dL Globulin 2.4 (1.3-4.6) g/dL Lipase 17 (13-60) U/L HCG, Qual Negative (Negative) Urine Color (Yellow) Urine Appearance (CLEAR) Urine pH (5-7) Ur Specific Gravit y (1.005-1.030) Urine Protein (Negative) Urine Glucose (UA) (Normal) Urine Ketones (Negative) Urine Blood (Negative) Urine Nitrate (Negative) Urine Bilirubin (Negative) Urine Urobilinogen (Negative) mg/dL Ur Leukocyte Brigida ase (Negative) Urine RBC (0-2) /hpf Urine WBC (0-5) /hpf Ur Squamous Epith Cells (0-5) /hpf Amorphous Sediment /hpf Urine Bacteria (NONE) /hpf Hyaline Casts /lpf Urine Mucus /hpf 02/26/21 02/27/21 Range/Units 23:20 01:00 WBC (4.5-13.0) 10^3/ uL RBC (4.1-5.3) 10^6/u L Hgb (11.5-15.3) g/dL Hct (37.0-47.0) % MCV (81-99) fL MCH (28.0-34.0) pg MCHC (30.0-36.0) g/dL RDW (12.1-15.1) % Plt Count (130-400) 10^3/c mm MPV (7.4-10.4) fL Neut % (Auto) % Lymph % (Auto) % Briscoe % (Auto) % Eos % (Auto) % Baso % (Auto) % Neut # (Auto) (1.8-8.0) 10^3/u L Lymph # (Auto) (1.5-6.5) 10^3/u L Briscoe # (Auto) (0.2-0.9) 10^3/u L Eos # (Auto) (0.0-0.8) 10^3/u L Baso # (Auto) (0.0-0.1) 10^3/u L Nucleated RBC % (a uto) % Nucleated RBCs # /100WBC PT 12.30 (12.1-14.9) SECO NDS INR 0.89 (0.8-1.2) Sodium (136-145) mmol/L Potassium (3.5-5.1) mmol/L Chloride (98-107) mmol/L Carbon Dioxide (22-29) mmol/L Anion Gap (5-19) BUN (6-20) mg/dL Creatinine (0.5-0.9) mg/dL GFR Calculation (90-130) mL/min Glucose (65-115) mg/dL Calculated Osmolal ity (285-295) mOsm/k g Calcium (8.5-10.5) mg/dL Total Bilirubin (0.15-1.2) mg/dL AST (0-32) U/L ALT (0-33) U/L Alkaline Phosphata se (35-105) IU/L Total Protein (6.6-8.7) g/dL Albumin (3.5-5.2) g/dL Globulin (1.3-4.6) g/dL Lipase (13-60) U/L HCG, Qual (Negative) Urine Color Linn (Yellow) Urine Appearance Clear (CLEAR) Urine pH 5 (5-7) Ur Specific Gravit y 1.020 (1.005-1.030) Urine Protein 3+ H (Negative) Urine Glucose (UA) Norm (Normal) Urine Ketones 1+ H (Negative) Urine Blood 3+ H (Negative) Urine Nitrate Negative (Negative) Urine Bilirubin 2+ H (Negative) Urine Urobilinogen 4 H (Negative) mg/dL Ur Leukocyte Brigida ase Trace H (Negative) Urine RBC >100 H (0-2) /hpf Urine WBC 5-10 H (0-5) /hpf Ur Squamous Epith Cells 25-40 H (0-5) /hpf Amorphous Sediment 1+ /hpf Urine Bacteria 1+ H (NONE) /hpf Hyaline Casts 5-10 H /lpf Urine Mucus 1+ /hpf Discharge Plan Discharge Patient Disposition: Home Clinical Impression: Elevated LFTs Cholelithiasis Qualifiers: Cholelithiasis location: gallbladder Cholecystitis presence: without cholecystitis Biliary obstruction: without biliary obstruction Qualified Code(s): K80.20 - Calculus of gallbladder without cholecystitis without obstruction Condition: Stable Prescriptions: New Reglan 10 mg tablet 10 mg PO Q6H 7 Days Qty: 15 RF: 0 Changed hydrocodone-acetaminophen 5-325 mg tablet 1 tab PO Q4H PRN (Reason: pain) Qty: 20 RF: 0 No Action medroxyprogesterone 150 mg/mL suspension 150 mg IM Q90D RF: 0 Cipro 500 mg tablet 500 mg PO BID Qty: 10 RF: 0 Zofran 4 mg tablet 4 mg PO Q6H PRN (Reason: nausea and vomiting) Qty: 1 RF: 0 Discharge Orders: Discharge ED (Routine); Ordered 02/27/21 Ordered By: Karmen Meier Referrals: Luis Vega MD [Primary Care Provider] - Patient Instructions: Opioid Safety Activity Restrictions/Additional Instructions: [facility] is committed to fighting the nationwide opiate epidemic. We are providing ALL patients with information regarding opiate safety. If you rec eived opiate pain medication during your stay or if you received a prescription for opiate pain medication-please review this handout. If not, you may disregard. Thank you. Case management should contact you hopefully tomorrow and get you set up an appointment for general surgery. You need to return to the emergency department for worsening or severe pain, repetitive episodes of vomiting, fevers, inability to keep down your medications, or any other concerns you may have. Coding Level of Care Code ED Control Center Operator for Fabg Fwd Exam Comprehensive
[2021-02-26 22:40] VITALS: BP 139/113; PULSE 80; RESP 16; O2SAT 98
[2021-02-26 22:55] LABS: Basophils # 0.1 10^3/uL (0.0-0.1); Basophils % 0.8 %; Eosinophils # 0.2 10^3/uL (0.0-0.8); Eosinophils % 2.2 %; Hematocrit 41.4 % (37.0-47.0); Hemoglobin 13.8 g/dL (11.5-15.3); Lymphocytes # 3.2 10^3/uL (1.5-6.5); Lymphocytes % 31.5 %; Mean Corpuscular HGB Conc 33.3 g/dL (30.0-36.0); Mean Corpuscular Hemoglobin 29.7 pg (28.0-34.0); Mean Corpuscular Volume 89.2 fL (81-99); Mean Platelet Volume 11.1 fL (7.4-10.4); Monocytes # 0.6 10^3/uL (0.2-0.9); Monocytes % 5.6 %; Neutrophils # 5.97 10^3/uL (1.8-8.0); Neutrophils % 59.5 %; Nucleated Red Blood Cells % 0 %; Platelet Count 272 10^3/cmm (130-400); Red Blood Count 4.64 10^6/uL (4.1-5.3); Red Cell Distribution Width 12.7 % (12.1-15.1)
[2021-02-26 23:06] LABS: HCG, Serum Qual Negative (Negative)
[2021-02-26 23:14] LABS: Alanine Aminotransferase 317 U/L (0-33); Albumin Level 3.4 g/dL (3.5-5.2); Alkaline Phosphatase 408 IU/L (35-105); Anion Gap 13.8 (5-19); Aspartate Amino Transferase 129 U/L (0-32); Blood Urea Nitrogen 10 mg/dL (6-20); Calcium 8.2 mg/dL (8.5-10.5); Carbon Dioxide 24 mmol/L (22-29); Chloride 105 mmol/L (98-107); Globulin 2.4 g/dL (1.3-4.6); Glomerular Filtration Rate 91.4 mL/min (90-130); Glucose 106 mg/dL (65-115); Lipase 17 U/L (13-60); Osmolality Calculated 287 mOsm/kg (285-295); Potassium 3.8 mmol/L (3.5-5.1); Sodium 139 mmol/L (136-145); Total Bilirubin 1.9 mg/dL (0.15-1.2); Total Protein 5.8 g/dL (6.6-8.7)
[2021-02-26 23:49] VITALS: RESP 16; O2SAT 97
[2021-02-26] MEDS: ondansetron 2 mg/ML SDV 2 mL 4 MG IVP (23:49)
[2021-02-26] MEDS: morphine 4 mg/mL SDV 1 mL IVP (23:49)
[2021-02-26 23:51] VITALS: BP 157/102; PULSE 90; RESP 16; O2SAT 98
[2021-02-26 23:56] LABS: Glucose Urine UA Norm (Normal); Protein Urine 3+ (Negative); Urine Appearance Clear (CLEAR); Urine Color Amber (Yellow); pH Urine 5 (5-7)
[2021-02-26 23:57] LABS: Add Urine Microscopic? YES; Bilirubin Urine 2+ (Negative); Blood Urine 3+ (Negative); Ketones Urine 1+ (Negative); Leukocyte Esterase Urine Trace (Negative); Nitrate Urine Negative (Negative); Urobilinogen Urine 4 mg/dL (Negative)
[2021-02-27 00:15] LABS: RBC Urine >100 /hpf (0-2); Squamous Epithelial Cell Urine 25-40 /hpf (0-5)
[2021-02-27 00:17] LABS: Amorphous Sediment Urine 1+ /hpf; Bacteria Urine 1+ /hpf; Mucus Urine 1+ /hpf
[2021-02-27 00:18] LABS: Add Urine Culture? No
[2021-02-27 00:39] VITALS: BP 111/73; RESP 16; O2SAT 98
[2021-02-27 01:24] LABS: INR 0.89 (0.8-1.2)
[2021-02-27 01:36] VITALS: BP 119/85; PULSE 90; PULSE 91; RESP 16; RESP 17; O2SAT 95; O2SAT 96
--- NOTE | 2021-02-27 23:17 | USR_ITS ---
PROCEDURE INFORMATION: Exam: US Abdomen, Limited; Right Upper Quadrant Exam date and time: 02/27/2021 12:25 AM Age: 20 years old Clinical indication: Abdominal pain; Acute; Additional info: Ruq pain; Elevated lfts TECHNIQUE: Imaging protocol: US abdomen. Real time ultrasound with image documentation. Limited exam focused on the right upper quadrant. COMPARISON: US gall bladder [id number] 02/25/2021 2:34 AM FINDINGS: Liver: Slight increased echogenicity of the liver may indicate fatty infiltration. Otherwise unremarkable liver, no focal abnormality. Gallbladder: There are several shadowing gallstones within the gallbladder. No definite gallbladder wall thickening or pericholecystic fluid. The gallbladder does not appear abnormally distended at this time. Technologist states patient was tender over the gallbladder region during scanning. Common bile duct: Mild extra hepatic biliary tree dilation, with common duct measuring about 7 mm. No visible common duct stone by ultrasound. This is a new finding in the interval. Correlation with laboratory/bilirubin levels may be helpful to determine if there is any significant biliary obstruction. Pancreas: Visible pancreas unremarkable. Right kidney: Images of the right kidney show no hydronephrosis. US/US gall bladder [id number] IMPRESSION: 1. Cholelithiasis, see additional details above. 2. Mild biliary tree dilation, a new finding in the interval. 3. Other findings discussed above.
--- NOTE | 2021-02-28 12:17 | DCPLANNER ---
business integration manager had message to schedule a follow up appointment for patient with general surgery. business integration manager contacted general surgery, gave them patients information. Clinic called patient to schedule a follow up, patient informed the clinic that no appointment was necessary at this time, patient was having gallbladder taken out today.
== END 2021-02-27 01:37 | disposition home or self-care (01) ==
PROVIDERS: Emergency Provider Physician Assistant; PCP Family Medicine
DX: K80.20 Calculus of gallbladder without cholecystitis without obstruction (principal); R79.89 Other specified abnormal findings of blood chemistry; I10 Essential (primary) hypertension; F17.210 Nicotine dependence, cigarettes, uncomplicated
CPT/HCPCS: 76705; 80053; 81001; 81003; 83690; 84703; 85025; 85610; 96374; 96375; 99283; J2270; J2405

== ENCOUNTER → 2021-04-25 16:51 | Outpatient (BNVA) | payer MEDICAID, SELFPAY | PROVIDERS: PCP Family Medicine; Visit Provider Nurse Practitioner Family | DX: Z20.822 Contact with and (suspected) exposure to COVID-19 (principal) | CPT/HCPCS: 87635 ==

== ENCOUNTER 2021-11-21 20:58 | Emergency (ER) | payer MEDICAID, SELFPAY ==
[2021-11-21 21:05] VITALS: BP 169/104; PULSE 120; RESP 20; TEMP 36.6; O2SAT 97; BMI 38.9
--- NOTE | 2021-11-21 21:17 | USR_ITS ---
NOTE: Report was unsigned for reason: Order was edited. Original Signature date and time was: 11/21/21 @ 2117 PROCEDURE INFORMATION: Exam: US Nonobstetric Pelvis; Complete Exam date and time: 11/21/2021 9:17 PM Age: 21 years old Clinical indication: Abdominal pain; Lower abdomen; Prior surgery; Surgery date: 6+ months; Surgery type: C section; Additional info: Vaginal bleeding TECHNIQUE: Imaging protocol: Transabdominal pelvic nonobstetric ultrasound. Complete exam. Real time ultrasound with image documentation. COMPARISON: US Pelvis Female [id number] 01/01/2018 11:35 PM FINDINGS: Uterus: 7.4 x 4.5 x 6.0 cm uterus. 4.2 mm endometrial stripe. Right ovary/adnexa: 4.1 x 4.3 x 4.3 cm right ovary with estimated volume 6.8 cc. Normal ovarian perfusion bilaterally with no torsion. 3.6 cm simple right ovarian cyst. Left ovary/adnexa: 2.4 x 2.0 x 2.1 cm left ovary with estimated volume 5.1 cc. Vagina: Fluid in the endocervical canal consistent with history of vaginal bleeding. Intraperitoneal space: No intraperitoneal fluid. Urinary bladder: Normal. [facility] US/US pelvic complete* [id number] IMPRESSION: 1. Fluid in the endocervical canal consistent with history of vaginal bleeding. 2. Normal ovarian perfusion bilaterally with no torsion. 3. 3.6 cm simple right ovarian cyst.
--- NOTE | 2021-11-21 21:18 | ED_ITS ---
HPI - Female Genitourinary General: Chief complaint: Vaginal Bleeding Stated complaint: heavy vag bleeding Time Seen by Provider: 11/21/21 21:14 Source: patient Mode of arrival: ambulatory Limitations: no limitations History of Present Illness: 21-year-old female has a history of irregular periods states that she had a menstruation 2 weeks ago and then states that over the last 2 days she started bleeding again. States that today the bleeding has been very heavy and is went through 6 pads. States he is also had some lower abdominal cramping she rates a 6 out of 10 denies any worsening improving fa ctors denies any vaginal discharge denies any fever vomiting. She is not on any medication. Associated symptoms: Deny abdominal pain, headache(s) or nausea Date of Last Menstrual Period: 02/17/20 Review of Systems Const: Denies: fever(s), chills, body aches or change in appetite Eyes: Denies: blurry vision or eye discomfort ENMT: Denies: throat pain or dental pain Card: Denies: chest pain Resp: Denies: dyspnea GI: Denies: abdominal pain, nausea, vomiting or diarrhea : Reports: vaginal bleeding; Denies: dysuria Musc: Denies: neck pain or back pain Skin/Breast: Denies: rash Neuro: Denies: headache(s) Psych: Denies: depression Vinnie/Lymph: Denies: easy bruising All/Imm: Denies: urticaria PFSH ED PFSH: Medical History (Updated 11/21/21 @ 22:25 by Homero Alcantara MD) Hypertension Social History Smoking and tobacco status: current every day smoker Female Reproductive History: Date of last menstrual period: 02/17/20 Physical Exam Const: COMMON NORMALS: no acute distress, patient oriented x3 and healthy ap pearing HENMT: COMMON NORMALS: normocephalic and atraumatic HEAD & SCALP: normocephalic and atraumatic Eye: COMMON NORMALS: Equal, round and reactive pupils present and EOMs intact bilaterally PUPIL: Yes Equal, round and reactive pupils present Neck/C-Spine: COMMON NORMALS: full ROM and supple Chest: COMMONS NORMALS: normal inspection of the chest and normal palpation of entire chest wall Resp: COMMON NORMALS: normal respiratory effort, No retractions, No use of accessory muscles and clear to auscultation bilaterally AUSCULTATION: clear to auscultation bilaterally Cardio: COMMON NORMALS: regular rate, regular rhythm and No murmurs present (Cardio) RATE: regular rate RHYTHM: regular rhythm GI: COMMON NORMALS: Normal to inspection, nondistended, normoactive bowel sounds present, Soft to palpation, non-tender and no masses PALPATION: Yes Soft to palpation Extremity: COMMON NORMALS: normal to inspection and full ROM Neuro: COMMON NORMALS: patient oriented x3, moves all extremities and no focal motor deficits Psych: COMMON NORMALS: mental status grossly normal, Normal thought process pr esent and cooperative THOUGHT PROCESS: Normal thought process present Skin: COMMON NORMALS: no rashes or lesions noted and no wounds GENERAL SKIN EXAM: no rashes or lesions noted Course Vital Signs: Vital signs: Vital Signs Temperature 98.6 F 11/21/21 21:39 Pulse Rate 110 H 11/21/21 21:39 Respiratory Rate 16 11/21/21 21:39 Blood Pressure 148/94 11/21/21 21:39 Pulse Oximetry 99 11/21/21 21:39 [facility] - Female Medical Decision Making Patient presents here with dysfunctional uterine bleeding. Hemoglobin level here is normal ultrasound showed a right ovarian cyst with good flow to the ovaries no sign of torsion I did speak to her primary care doctor Dr. Vega who is going to see her in the morning I feel she stable for discharge informed her to follow-up in the morning return if worsening. Lab Data : 11/21/21 21:21 11/21/21 21:21 Laboratory Results WBC 13.4 10^3/uL (4.0-10.0) H 11/21/21 21:21 RBC 4.96 10^6/uL (4.1-5.3) 11/21/21 21:21 Hgb 15.1 g/dL (11.5-15.3) 11/21/21 21: Hct 44.8 % (37.0-47.0) 11/21/21 21:21 MCV 90.3 fl (81-99) 11/21/21 21:21 MCH 30.4 pg (28.0-34.0) 11/21/21 21: MCHC 33.7 g/dL (30.0-36.0) 11/21/21 21: RDW 13.3 % (12.1-15.1) 11/21/21 21:21 Plt Count 266 10^3/cmm (130-400) 11/21/21 21:21 MPV 10.9 fL (7.4-10.4) H 11/21/21 21:21 Neut % (Auto) 55.5 % 11/21/21 21: Lymph % (Auto) 36.8 % 11/21/21 21: [place] % (Auto) 4.4 % 11/21/21 21:21 Eos % (Auto) 2.3 % 11/21/21 21:21 Baso % (Auto) 0.7 % 11/21/21 21: Neut # (Auto) 7.42 10^3/uL (1.8-7.7) 11/21/21 21: Lymph # (Auto) 4.9 10^3/uL (0.8-4.8) H 11/21/21 21:21 [place] # (Auto) 0.6 10^3/uL (0.2-0.9) 11/21/21 21: Eos # (Auto) 0.3 10^3/uL (0.0-0.8) 11/21/21 21: Baso # (Auto) 0.1 10^3/uL (0.0-0.1) 11/21/21 21: Nucleated RBC % (auto) 0 % 11/21/21 21: Nucleated RBCs # 0.0 /100WBC 11/21/21 21: PT 12.00 SECONDS (12.1-14.9) L 11/21/21 21: INR 0.86 (0.8-1.2) 11/21/21 21:21 Sodium 138 mmol/L (136-145) 11/21/21 21: Potassium 4.2 mmol/L (3.5-5.1) 11/21/21 21: Chloride 104 mmol/L (98-107) 11/21/21 21: Carbon Dioxide 21 mmol/L (22-29) L 11/21/21 21: Anion Gap 17.2 (5-19) 11/21/21 21: BUN 11 mg/dL (6-20) 11/21/21 21:21 Creatinine 0.7 mg/dL (0.5-0.9) 11/21/21 21:21 GFR Calculation 105.6 mL/min (90-130) 11/21/21 21:21 Glucose 106 mg/dL (65-115) 11/21/21 21:21 Calculated Osmolality 286 mOsm/kg (285-295) 11/21/21 21:21 Calcium 9.0 mg/dL (8.5-10.5) 11/21/21 21:21 Total Bilirubin 0.2 mg/dL (0.15-1.2) 11/21/21 21:21 AST 12 U/L (0-32) 11/21/21 21:21 ALT 11 U/L (0-33) 11/21/21 21:21 Alkaline Phosphatase 102 IU/L (35-105) 11/21/21 21:21 Total Protein 6.1 g/dL (6.6-8.7) L 11/21/21 21:21 Albumin 3.4 g/dL (3.5-5.2) L 11/21/21 21: Globulin 2.7 g/dL (1.3-4.6) 11/21/21 21:21 HCG, Qual Negative (Negative) 11/21/21 21:21 Discharge Plan Discharge Patient Disposition: Home Clinical Impression: Dysfunctional uterine bleeding Condition: Stable Prescriptions: New naproxen [Naprosyn] 500 mg tablet 500 mg PO BID PRN (Reason: pain) Qty: 20 0RF No Action erythromycin 5 mg/gram (0.5 %) ointment 0.5 inch ophthalmic (eye) QID 14 Days Qty: 1 0RF Discharge Orders: Discharge ED (Routine); Ordered 11/21/21 Ordered By: Homero Alcantara Referrals: Luis Vega MD [Primary Care Provider] - 1-3 days Discharge Diet: Advance as tolerated Discharge Activity: Resume usual activity Coding Level of Care Code ED Intelligence Research Specialist for Chg Fwd Exam Comprehensive
[2021-11-21 21:25] LABS: Basophils # 0.1 10^3/uL (0.0-0.1); Basophils % 0.7 %; Eosinophils # 0.3 10^3/uL (0.0-0.8); Eosinophils % 2.3 %; Hematocrit 44.8 % (37.0-47.0); Hemoglobin 15.1 g/dL (11.5-15.3); Lymphocytes # 4.9 10^3/uL (0.8-4.8); Lymphocytes % 36.8 %; Mean Corpuscular HGB Conc 33.7 g/dL (30.0-36.0); Mean Corpuscular Hemoglobin 30.4 pg (28.0-34.0); Mean Corpuscular Volume 90.3 fl (81-99); Mean Platelet Volume 10.9 fL (7.4-10.4); Monocytes # 0.6 10^3/uL (0.2-0.9); Monocytes % 4.4 %; Neutrophils # 7.42 10^3/uL (1.8-7.7); Neutrophils % 55.5 %; Nucleated Red Blood Cells % 0 %; Platelet Count 266 10^3/cmm (130-400); Red Blood Count 4.96 10^6/uL (4.1-5.3); Red Cell Distribution Width 13.3 % (12.1-15.1); White Blood Count 13.4 10^3/uL (4.0-10.0)
[2021-11-21 21:37] LABS: INR 0.86 (0.8-1.2)
[2021-11-21 21:39] VITALS: BP 148/94; PULSE 110; RESP 16; TEMP 37; O2SAT 99
[2021-11-21 21:42] LABS: Alanine Aminotransferase 11 U/L (0-33); Albumin Level 3.4 g/dL (3.5-5.2); Alkaline Phosphatase 102 IU/L (35-105); Anion Gap 17.2 (5-19); Aspartate Amino Transferase 12 U/L (0-32); Blood Urea Nitrogen 11 mg/dL (6-20); Carbon Dioxide 21 mmol/L (22-29); Chloride 104 mmol/L (98-107); Globulin 2.7 g/dL (1.3-4.6); Glomerular Filtration Rate 105.6 mL/min (90-130); Glucose 106 mg/dL (65-115); Osmolality Calculated 286 mOsm/kg (285-295); Potassium 4.2 mmol/L (3.5-5.1); Sodium 138 mmol/L (136-145); Total Bilirubin 0.2 mg/dL (0.15-1.2); Total Protein 6.1 g/dL (6.6-8.7)
[2021-11-21 21:43] LABS: HCG, Serum Qual Negative (Negative)
[2021-11-21] MEDS: sodium chloride 0.9% 1,000 ML 999 ML IV (22:02)
[2021-11-21 22:44] VITALS: RESP 16
[2021-11-21] MEDS: morphine 4 mg/mL SDV 1 mL IVP (22:44)
[2021-11-21] MEDS: ondansetron 2 mg/ML SDV 2 mL 4 MG IVP (22:44)
[2021-11-21 22:45] VITALS: BP 156/91; PULSE 102; RESP 16; TEMP 36.7; O2SAT 100
== END 2021-11-21 22:47 | disposition home or self-care (01) ==
PROVIDERS: Emergency Provider Emergency Medicine; PCP Family Medicine
DX: N93.8 Other specified abnormal uterine and vaginal bleeding (principal); I10 Essential (primary) hypertension; F17.210 Nicotine dependence, cigarettes, uncomplicated
CPT/HCPCS: 76830; 76856; 80053; 84703; 85025; 85610; 96361; 96374; 96375; 99284; J2270; J2405; J7030

== ENCOUNTER 2022-03-01 20:12 | Emergency (ER) | payer MEDICAID, SELFPAY ==
[2022-03-01 20:16] VITALS: BP 156/86; PULSE 112; RESP 18; TEMP 36.4; O2SAT 97
--- NOTE | 2022-03-01 20:23 | CTR_ITS ---
PROCEDURE INFORMATION: Exam: CT Abdomen And Pelvis Without Contrast Exam date and time: 03/01/2022 10:40 PM Age: 21 years old Clinical indication: Abdominal pain; Localized; Right lower quadrant (rlq); Prior surgery; Surgery type: Gb. Csection. ; Patient HX: C/O rlq pain with fever. ; Additional info: Abd pain TECHNIQUE: Imaging protocol: Computed tomography of the abdomen and pelvis without contrast. Radiation optimization: All CT scans at this facility use at least one of these dose optimization techniques: automated exposure control; mA and/or kV adjustment per patient size (includes targeted exams where dose is matched to clinical indication); or iterative reconstruction. COMPARISON: MR MRCP [id number] 02/25/2021 6:33 AM RADIATION DOSE METRICS: Total DLP (mGy-cm): 2537.27 FINDINGS: Lungs: Lung bases are clear. Liver: The liver is normal. Gallbladder and bile ducts: The gallbladder is absent. There is no intrahepatic or extrahepatic bile duct dilation. Pancreas: The pancreas is unremarkable. Spleen: The spleen is moderately enlarged. Adrenal glands: The adrenal glands are unremarkable. Kidneys and ureters: The kidneys are unremarkable. No hydronephrosis or stones. No ureteral dilation. Stomach and bowel: The stomach is unremarkable. The small bowel is nondilated. The colon is unremarkable. Appendix: The appendix is normal. Intraperitoneal space: There is no free air or significant intraperitoneal free fluid. Vasculature: The aorta is unremarkable. There is no aneurysm. Lymph nodes: There is no lymphadenopathy in the retroperitoneum, mesentery, pelvis or inguinal regions. Urinary bladder: The urinary bladder is unremarkable. Reproductive: The uterus is unremarkable. There is no adnexal mass or large cyst. Bones/joints: Bones are unremarkable. Soft tissues: The abdominal wall is intact. CT/CT abdomen pelvis wo con [id number] IMPRESSION: 1. No acute findings. 2. Moderate splenic enlargement.
--- NOTE | 2022-03-01 20:33 | ED_ITS ---
HPI - Abdominal Pain General: Chief Complaint: Abdominal Pain Stated Complaint: ABD Pain Time Seen by Provider: 03/01/22 20:21 Source: patient Mode of arrival: ambulatory Limitations: no limitations History of Present Illness: 21-year-old female states she did have right lower quadrant pain over the last 2 to 3 days states it is worsened today much worse with any movement or palpation improved with rest. Denies any vomiting or diarrhea denies any fevers denies any dysuria she has had her gallbladder out still has her appendix Associated Symptoms: Denies chills, dysuria and fever(s) Related Data: Date of Last Menstrual Period: 02/17/20 Review of Systems Const: Denies: fever(s), chills, body aches or change in appetite Eyes: Denies: blurry vision or eye discomfort ENMT: Denies: throat pain or dental pain Card: Denies: chest pain Resp: Denies: dyspnea GI: Reports: abdominal pain : Denies: dysuria Musc: Denies: neck pain or back pain Skin/Breast: Denies: rash Neuro: Denies: headache(s) Psych: Denies: depression Vinnie/Lymph: Denies: easy bruising All/Imm: Denies: urticaria PFSH ED PFSH: Medical History (Updated 03/01/22 @ 23:49 by Homero Alcantara MD) Hypertension Social History Smoking and tobacco status: current every day smoker Female Reproductive History: Date of last menstrual period: 02/17/20 Physical Exam Const: COMMON NORMALS: no acute distress, patient oriented x3 and healthy appearing HENMT: COMMON NORMALS: normocephalic and atraumatic HEAD & SCALP: normocephalic and atraumatic Eye: COMMON NORMALS: Equal, round and reactive pupils present and EOMs intact bilaterally PUPIL: Yes Equal, round and reactive pupils present Neck/C-Spine: COMMON NORMALS: full ROM and supple Chest: COMMONS NORMALS: normal inspection of the chest and normal palpation of entire chest wall Resp: COMMON NORMALS: normal respiratory effort, No retractions, No use of accessory muscles and clear to auscultation bilaterally AUSCULTATION: clear to auscultation bilaterally Cardio: COMMON NORMALS: regular rate, regular rhythm and No murmurs present (Cardio) RATE: regular rate RHYTHM: regular rhythm GI: COMMON NORMALS: Normal to inspection, nondistended, normoactive bowel s ounds present, Soft to palpation and no masses PALPATION: Yes Soft to pal pation and Yes Tenderness to palpation present (GI) Details: RLQ Extremity: COMMON NORMALS: normal to inspection and full ROM Neuro: COMMON NORMALS: patient oriented x3, moves all extremities and no focal motor deficits Psych: COMMON NORMALS: mental status grossly normal, Normal thought process present and cooperative THOUGHT PROCESS: Normal thought process present Skin: COMMON NORMALS: no rashes or lesions noted and no wounds GENERAL SKIN EXAM: no rashes or lesions noted Course Vital Signs: Vital signs: Vital Signs Temperature 97.6 F 03/01/22 20:16 Pulse Rate 112 H 03/01/22 20:16 Respiratory Rate 18 03/01/22 20:16 Blood Pressure 156/86 03/01/22 20:16 Pulse Oximetry 97 03/01/22 20:16 MDM - Abdominal Pain Medical Decision Making Patient presents here with abdominal pain CT scan shows no acute finding lab work is normal as well she feels much improved she is stable for discharge we will get her follow-up with surgeon along with her PCP she will prescribe her hydrocodone and Zofran for home she is return if worsening she understands agrees to plan. Lab Data : 03/01/22 20:37 03/01/22 20:37 Labs/Radiology: Radiology Impressions Abdomen/Pelvis CT 03/01/22 20:23 IMPRESSION: 1. No acute findings. 2. Moderate splenic enlargement. Laboratory Results WBC 12.7 10^3/uL (4.0-10.0) H 03/01/22 20:37 RBC 4.90 10^6/uL (4.1-5.3) 03/01/22 20:37 Hgb 14.9 g/dL (11.5-15.3) 03/01/22 20:37 Hct 44.5 % (37.0-47.0) 03/01/22 20:37 MCV 90.8 fl (81-99) 03/01/22 20:37 MCH 30.4 pg (28.0-34.0) 03/01/22 20:37 MCHC 33.5 g/dL (30.0-36.0) 03/01/22 20:37 RDW 13.6 % (12.1-15.1) 03/01/22 20:37 Plt Count 255 10^3/cmm (130-400) 03/01/22 20:37 MPV 10.9 fL (7.4-10.4) H 03/01/22 20:37 Neut % (Auto) 53.8 % 03/01/22 20:37 Lymph % (Auto) 37.2 % 03/01/22 20:37 [place] % (Auto) 5.5 % 03/01/22 20:37 Eos % (Auto) 2.4 % 03/01/22 20:37 Baso % (Auto) 0.6 % 03/01/22 20:37 Neut # (Auto) 6.82 10^3/uL (1.8-7.7) 03/01/22 20: Lymph # (Auto) 4.7 10^3/uL (0.8-4.8) 03/01/22 20:37 [place] # (Auto) 0.7 10^3/uL (0.2-0.9) 03/01/22 20:37 Eos # (Auto) 0.3 10^3/uL (0.0-0.8) 03/01/22 20:37 Baso # (Auto) 0.1 10^3/uL (0.0-0.1) 03/01/22 20:37 Nucleated RBC % (auto) 0 % 03/01/22 20: Nucleated RBCs # 0.0 /100WBC 03/01/22 20:37 Sodium 138 mmol/L (136-145) 03/01/22 20: Potassium 3.9 mmol/L (3.5-5.1) 03/01/22 20:37 Chloride 103 mmol/L (98-107) 03/01/22 20:37 Carbon Dioxide 24 mmol/L (22-29) 03/01/22 20:37 Anion Gap 14.9 (5-19) 03/01/22 20:37 BUN 9 mg/dL (6-20) 03/01/22 20:37 Creatinine 0.7 mg/dL (0.5-0.9) 03/01/22 20:37 GFR Calculation 105.6 mL/min (90-130) 03/01/22 20:37 Glucose 106 mg/dL (65-115) 03/01/22 20:37 Calculated Osmolality 285 mOsm/kg (285-295) 03/01/22 20:37 Calcium 8.7 mg/dL (8.5-10.5) 03/01/22 20:37 Total Bilirubin 0.2 mg/dL (0.15-1.2) 03/01/22 20:37 AST 11 U/L (0-32) 03/01/22 20:37 ALT 12 U/L (0-33) 03/01/22 20:37 Alkaline Phosphatase 113 IU/L (35-105) H 03/01/22 20:37 Total Protein 6.2 g/dL (6.6-8.7) L 03/01/22 20: Albumin 3.5 g/dL (3.5-5.2) 03/01/22 20: Globulin 2.7 g/dL (1.3-4.6) 03/01/22 20:37 Lipase 18 U/L (13-60) 03/01/22 20:37 HCG, Qual Negative (Negative) 03/01/22 21:59 Urine Color Yellow (Yellow) 03/01/22 21:37 Urine Appearance Clear (CLEAR) 03/01/22 21:37 Urine pH 5 (5-7) 03/01/22 21:37 Ur Specific [place] 1.015 (1.005-1.030) 03/01/22 21:37 Urine Protein 3+ (Negative) H 03/01/22 21:37 Urine Glucose (UA) Norm (Normal) 03/01/22 21:37 Urine Ketones Negative (Negative) 03/01/22 21:37 Urine Blood 2+ (Negative) H 03/01/22 21:37 Urine Nitrate Negative (Negative) 03/01/22 21:37 Urine Bilirubin Neg (Negative) 03/01/22 21:37 Urine Urobilinogen Norm mg/dL (Negative) 03/01/22 21:37 Ur Leukocyte Esterase Negative (Negative) 03/01/22 21:37 Urine RBC 0-4 /hpf (0-2) H 03/01/22 21:37 Urine WBC 5-10 /hpf (0-5) H 03/01/22 21:37 Ur Squamous Epith Cells 10-15 /hpf (0-5) H 03/01/22 21:37 Amorphous Sediment Not Reportable 03/01/22 21:37 Urine Bacteria Trace /hpf (NONE) 03/01/22 21:37 Urine Mucus 1+ /hpf 03/01/22 21:37 Discharge Plan Discharge Patient Disposition: Home Clinical Impression: Abdominal pain Qualifiers: Abdominal location: generalized Qualified Code(s): R10.84 - Generalized abdominal pain Condition: Stable Prescriptions: New hydrocodone-acetaminophen 5-325 mg tablet 1 tab PO Q6H PRN (Reason: pain) Qty: 14 0RF ondansetron 4 mg tablet,disintegrating 4 mg PO Q6H PRN (Reason: nausea and vomiting) Qty: 14 0RF No Action erythromycin 5 mg/gram (0.5 %) ointment 0.5 inch ophthalmic (eye) QID 14 Days Qty: 1 0RF doxycycline hyclate 100 mg capsule 100 mg PO BID 5 Days Qty: 10 0RF prednisone 20 mg tablet 20 mg PO DAILY 5 Days Qty: 5 0RF Naprosyn 500 mg tablet 500 mg PO BID PRN (Reason: pain) Qty: 20 0RF Discharge Orders: Discharge ED (Routine); Ordered 03/01/22 Ordered By: Homero Alcantara Referrals: Giuseppe Goodman MD [Physician] - 1-3 days Discharge Diet: Advance as tolerated Discharge Activity: Resume usual activity Patient Instructions: Abdominal Pain (ED), Opioid Safety Coding Level of Care Code ED Human Resources Operations Coordinator for Chg Fwd Exam Comprehensive
[2022-03-01 20:54] LABS: Basophils # 0.1 10^3/uL (0.0-0.1); Basophils % 0.6 %; Eosinophils # 0.3 10^3/uL (0.0-0.8); Eosinophils % 2.4 %; Hematocrit 44.5 % (37.0-47.0); Hemoglobin 14.9 g/dL (11.5-15.3); Lymphocytes # 4.7 10^3/uL (0.8-4.8); Lymphocytes % 37.2 %; Mean Corpuscular HGB Conc 33.5 g/dL (30.0-36.0); Mean Corpuscular Hemoglobin 30.4 pg (28.0-34.0); Mean Corpuscular Volume 90.8 fl (81-99); Mean Platelet Volume 10.9 fL (7.4-10.4); Monocytes # 0.7 10^3/uL (0.2-0.9); Monocytes % 5.5 %; Neutrophils # 6.82 10^3/uL (1.8-7.7); Neutrophils % 53.8 %; Nucleated Red Blood Cells % 0 %; Platelet Count 255 10^3/cmm (130-400); Red Cell Distribution Width 13.6 % (12.1-15.1); White Blood Count 12.7 10^3/uL (4.0-10.0)
[2022-03-01] MEDS: morphine 4 mg/mL SDV 1 mL IVP (21:00)
[2022-03-01] MEDS: ondansetron 2 mg/ML SDV 2 mL 4 MG IVP (21:00)
[2022-03-01] MEDS: sodium chloride 0.9% 1,000 ML 999 ML IV (21:00)
[2022-03-01 21:20] LABS: Alanine Aminotransferase 12 U/L (0-33); Albumin Level 3.5 g/dL (3.5-5.2); Alkaline Phosphatase 113 IU/L (35-105); Anion Gap 14.9 (5-19); Aspartate Amino Transferase 11 U/L (0-32); Blood Urea Nitrogen 9 mg/dL (6-20); Calcium 8.7 mg/dL (8.5-10.5); Carbon Dioxide 24 mmol/L (22-29); Chloride 103 mmol/L (98-107); Globulin 2.7 g/dL (1.3-4.6); Glomerular Filtration Rate 105.6 mL/min (90-130); Glucose 106 mg/dL (65-115); Lipase 18 U/L (13-60); Osmolality Calculated 285 mOsm/kg (285-295); Potassium 3.9 mmol/L (3.5-5.1); Sodium 138 mmol/L (136-145); Total Bilirubin 0.2 mg/dL (0.15-1.2); Total Protein 6.2 g/dL (6.6-8.7)
[2022-03-01 22:32] LABS: HCG, Serum Qual Negative (Negative)
[2022-03-01 23:05] LABS: Add Urine Microscopic? YES; Bilirubin Urine Neg (Negative); Blood Urine 2+ (Negative); Glucose Urine UA Norm (Normal); Ketones Urine Negative (Negative); Leukocyte Esterase Urine Negative (Negative); Nitrate Urine Negative (Negative); Protein Urine 3+ (Negative); RBC Urine 0-4 /hpf (0-2); Specific Gravity, Urine 1.015 (1.005-1.030); Urine Appearance Clear (CLEAR); Urine Color Yellow (Yellow); Urobilinogen Urine Norm (Negative); pH Urine 5 (5-7)
[2022-03-01 23:06] LABS: Add Urine Culture? No; Bacteria Urine TRACE /hpf; Mucus Urine 1+ /hpf
[2022-03-01] MEDS: HYDROmorphone 1 mg/mL INJ 1 mL IVP (23:28)
[2022-03-02] VITALS: BP 118/74; PULSE 78; RESP 18; O2SAT 98
--- NOTE | 2022-03-05 10:42 | DCPLANNER ---
Addendum entered by Joceline Wiggins 03/07/22 21:57: veneer department manager had message from general surgery stating that patient declined appointment at this time. Original Note: veneer department manager had manager fine message to schedule a follow up appointment for patient with general surgery. veneer department manager sent patients information to the front office staff at general surgery. Patients information will be printed and reviewed. Clinic will call patient with appointment information.
== END 2022-03-02 00:05 | disposition home or self-care (01) ==
PROVIDERS: Emergency Provider Emergency Medicine
DX: R10.84 Generalized abdominal pain (principal); I10 Essential (primary) hypertension
CPT/HCPCS: 74176; 80053; 81001; 83690; 84703; 85025; 96361; 96374; 96375; 99284; J1170; J2270; J2405; J7030

== ENCOUNTER 2022-06-04 14:06 | Emergency (ER) | payer MEDICAID, SELFPAY ==
[2022-06-04 14:57] VITALS: BP 171/130; PULSE 88; RESP 15; TEMP 36.8; O2SAT 98; BMI 39.0
[2022-06-04 15:03] VITALS: PULSE 81; O2SAT 98
--- NOTE | 2022-06-04 15:37 | ED_ITS ---
HPI - General Adult General: Chief complaint: General Medical Stated complaint: Head pain Time Seen by Provider: 06/04/22 15:16 Source: patient Mode of arrival: ambulatory Limitations: no limitations History of Present Illness: 21-year-old female presents emergency room with right-sided facial swelling and pain over the zygomatic arch and the maxillary sinus. [place] sinus drainage. Patient reports recurrent sinus infections in the past she denies any fever sweats chills or cough no tooth pain. Onset (ago): hour(s) Location: face Radiation: non-radiation Severity: mild Quality: aching Pain Consistency: constant Relieving factors: none Exacerbating factors: none Associated symptoms: Reports cough; Deny chest pain, confusion, diaphoresis, decreased appetite, dyspnea, fevers/chills, headache(s), malaise, nausea, rash, palpitations, seizures, short of breath, syncope, vomiting or weakness Treatments prior to arrival: none Review of Systems Const: Denies: malaise or diaphoresis ENMT: Reports: nasal discharge and nasal congestion; Denies: throat pain or ear or mastoid pain Card: Denies: chest pain, palpitations or syncope Resp: Denies: dyspnea GI: Denies: nausea or vomiting : Denies: flank pain, difficulty voiding, dysuria, urinary frequency or urinary urgency Skin/Breast: Denies: rash Neuro: Denies: headache(s) or confusion [facility] ED PFSH: Medical History Hypertension Social History Smoking and tobacco status: current every day smoker Female Reproductive History: Date of last menstrual period: 02/17/20 Physical Exam Const: COMMON NORMALS: no acute distress GENERAL APPEARANCE: cooperative and comfortable ORIENTATION/CONSCIOUSNESS: Yes awake, Yes oriented to person, Yes oriented to place and Yes oriented to time HENMT: COMMON NORMALS: normocephalic, atraumatic, hearing grossly normal bilaterally, external ears normal, EAC's normal, TM's normal bilaterally, moist oral mucous membranes and oropharynx normal HEAD & SCALP: normocephalic and atraumatic EXTERNAL EAR: Yes external ears normal EXTERNAL AUDITORY CANAL: EAC's normal TYMPANIC MEMBRANE: TM's normal bilaterally OTHER: Exquisitely tender right maxillary sinus Resp: COMMON NORMALS: normal respiratory effort, No retractions, No use of accessory muscles and clear to auscultation bilaterally AUSCULTATION: clear to auscultation bilaterally Cardio: COMMON NORMALS: regular rate, regular rhythm and No murmurs present (Cardio) RATE: regular rate RHYTHM: regular rhythm GI: COMMON NORMALS: Soft to palpation and No hepatosplenomegaly present AUSCULTATION: Yes normoactive bowel sounds PALPATION: Yes Soft to palpation, No Tenderness to palpation present (GI), No Guarding due to palpation present (GI) and Yes No hepatosplenomegaly present Extremity: COMMON NORMALS: normal to inspection, capillary refill normal, no clubbing, cyanosis or edema, no calf tenderness and no pedal edema Neuro: SENSORIUM/ORIENTATION: Yes oriented to person, Yes oriented to place and Yes oriented to time Skin: COMMON NORMALS: no rashes or lesions noted GENERAL SKIN EXAM: no rash es or lesions noted Course Vital Signs: Vital signs: Vital Signs Temperature 98.3 F 06/04/22 14:57 Pulse Rate 80 06/04/22 16:21 Respiratory Rate 15 06/04/22 14:57 Blood Pressure 163/124 06/04/22 16:21 Pulse Oximetry 96 06/04/22 16:21 Oxygen Delivery Me thod 06/04/22 15:03 [facility] - General Adult Medical Decision Making Severe maxillary sinusitis start antibiotics decongestants as needed recheck if not improving Medical Records I reviewed the patient's medical records. Lab Data I reviewed the patient's lab results. Discharge Plan Discharge Patient Disposition: Home Clinical Impression: Acute sinusitis Condition: Stable Prescriptions: New amoxicillin-pot clavulanate 875-125 mg tablet 1 tab PO BID Qty: 20 0RF pseudoephedrine HCl 120 mg tablet extended release 120 mg PO BID PRN (Reason: nasal congestion) Qty: 20 0RF diclofenac sodium 75 mg tablet,delayed release (DR/EC) 75 mg PO Q12H PRN (Reason: pain) Qty: 20 0RF Discontinued naproxen [Naprosyn] 500 mg tablet 500 mg PO BID PRN (Reason: pain) Qty: 20 0RF No Action erythromycin 5 mg/gram (0.5 %) ointment 0.5 inch ophthalmic (eye) QID 14 Days Qty: 1 0RF doxycycline hyclate 100 mg capsule 100 mg PO BID 5 Days Qty: 10 0RF prednisone 20 mg tablet 20 mg PO DAILY 5 Days Qty: 5 0RF hydrocodone-acetaminophen 5-325 mg tablet 1 tab PO Q6H PRN (Reason: pain) Qty: 14 0RF ondansetron 4 mg tablet,disintegrating 4 mg PO Q6H PRN (Reason: nausea and vomiting) Qty: 14 0RF Discharge Orders: Discharge ED (Routine); Ordered 06/04/22 Ordered By: Trevor Francois Discharge Diet: Usual diet Discharge Activity: Increase activity as tolerated Patient Instructions: Opioid Safety Coding Level of Care Code ED Fresh Foods Clerk for Michael Cadet
[2022-06-04 16:21] VITALS: BP 163/124; PULSE 80; O2SAT 96
== END 2022-06-04 16:18 | disposition home or self-care (01) ==
PROVIDERS: Emergency Provider Family Medicine
DX: J01.90 Acute sinusitis, unspecified (principal); I10 Essential (primary) hypertension; F17.210 Nicotine dependence, cigarettes, uncomplicated
CPT/HCPCS: 99284

== ENCOUNTER 2022-07-23 13:11 | Emergency (ER) | payer MEDICAID, SELFPAY ==
[2022-07-23 13:20] VITALS: BP 136/87; PULSE 102; RESP 16; TEMP 36.8; O2SAT 97; BMI 39.0
[2022-07-23 14:27] LABS: Basophils # 0.1 10^3/uL (0.0-0.1); Basophils % 0.7 %; Eosinophils # 0.3 10^3/uL (0.0-0.8); Eosinophils % 2.2 %; Hematocrit 43.5 % (37.0-47.0); Hemoglobin 14.6 g/dL (11.5-15.3); Lymphocytes % 33.3 %; Mean Corpuscular HGB Conc 33.6 g/dL (30.0-36.0); Mean Corpuscular Hemoglobin 31.5 pg (28.0-34.0); Mean Platelet Volume 11.2 fL (7.4-10.4); Monocytes # 0.7 10^3/uL (0.2-0.9); Monocytes % 5.5 %; Neutrophils # 6.92 10^3/uL (1.8-7.7); Neutrophils % 57.9 %; Nucleated Red Blood Cells % 0 %; Platelet Count 271 10^3/cmm (130-400); Red Blood Count 4.63 10^6/uL (4.1-5.3); Red Cell Distribution Width 13.2 % (12.1-15.1)
[2022-07-23 14:47] LABS: Alanine Aminotransferase 16 U/L (0-33); Albumin Level 3.4 g/dL (3.5-5.2); Alkaline Phosphatase 113 U/L (35-105); Aspartate Amino Transferase 14 U/L (0-32); Blood Urea Nitrogen 7 mg/dL (6-20); Calcium 8.7 mg/dL (8.5-10.5); Carbon Dioxide 23 mmol/L (22-29); Chloride 105 mmol/L (98-107); Globulin 2.7 g/dL (1.3-4.6); Glomerular Filtration Rate 105.6 mL/min (90-130); Glucose 96 mg/dL (65-115); Lipase 22 U/L (13-60); Osmolality Calculated 284 mOsm/kg (285-295); Sodium 138 mmol/L (136-145); Total Bilirubin 0.2 mg/dL (0.15-1.2); Total Protein 6.1 g/dL (6.6-8.7)
[2022-07-23 14:51] LABS: Anion Gap 14.1 (5-19); Potassium 4.1 mmol/L (3.5-5.1)
[2022-07-23 15:11] LABS: HCG Qualitative Urine. Negative (Negative)
[2022-07-23 15:19] LABS: Add Urine Microscopic? YES; Bilirubin Urine Neg (Negative); Blood Urine 2+ (Negative); Glucose Urine UA Norm (Normal); Ketones Urine Negative (Negative); Leukocyte Esterase Urine Negative (Negative); Nitrate Urine Negative (Negative); Protein Urine 3+ (Negative); Specific Gravity, Urine 1.005 (1.005-1.030); Urine Appearance Clear (CLEAR); Urine Color Yellow (Yellow); Urobilinogen Urine Norm (Negative); pH Urine 6 (5-7)
[2022-07-23 15:20] LABS: Add Urine Culture? No; Bacteria Urine 1+ /hpf; RBC Urine 0-4 /hpf (0-2); Squamous Epithelial Cell Urine 15-25 /hpf (0-5); WBC Urine 0-4 /hpf (0-5)
--- NOTE | 2022-07-23 16:27 | USR_ITS ---
PROCEDURE INFORMATION: Exam: US Nonobstetric Pelvis; Complete Exam date and time: 07/23/2022 4:45 PM Age: 21 years old Clinical indication: Pelvic pain; Prior surgery; Surgery date: 6+ months; Surgery type: C section; Additional info: L pelvic pain TECHNIQUE: Imaging protocol: Transabdominal pelvic nonobstetric ultrasound. Complete exam. Real time ultrasound with image documentation. COMPARISON: US transvaginal [id number] 11/21/2021 10:11 PM FINDINGS: Uterus: Uterus measures 10.0 x 4.1 x 5.3 cm. Endometrium is 8 mm in thickness Right ovary/adnexa: Right ovary measures 2.9 x 2.2 x 2.1 cm and is unremarkable. There is normal Doppler flow in the right ovary. Left ovary/adnexa: Left ovary measures 2.8 x 2.7 x 2.4 cm and is unremarkable. There is normal Doppler flow in the left ovary. Intraperitoneal space: No intraperitoneal fluid. Urinary bladder: Normal. US/US pelvic complete* [id number] IMPRESSION: Basically unremarkable transabdominal ultrasound of the pelvis.
--- NOTE | 2022-07-23 16:38 | W.ED.ABDPA2 ---
HPI - Abdominal Pain General: Chief Complaint: Abdominal Pain Stated Complaint: pain on the left side of the hibs Time Seen by Provider: 07/23/22 15:15 Source: patient Mode of arrival: ambulatory History of Present Illness: 21-year-old female presents emergency room with complaint of left pelvic pain. She is midcycle at this point she has had problems ovarian cyst in the past she denies a potential to be . She denies any dysuria urgency or frequency she denies any other abdominal symptoms no nausea vomiting or diarrhea associated with this. She has no history of nephrolithiasis. No vaginal discharge no bleeding MD elicited complaint: abdominal pain Pertinent past history: other (Ovarian cysts) Onset (ago): day(s) Location: LLQ Severity: mild Quality: cramping Migration to: no migration Exacerbating factors: nothing Relieving factors: nothing Associated Symptoms: Reports bloating, GI cramping and poor appetite; Denies anorexia, belching, change in bowel habits, change in stool character, chills, coffee ground emesis, constipation, diarrhea, dyspepsia, dysuria, excessive flatus, fever(s), heartburn, hematochezia, hematuria, hematemesis, fecal incontinence, loose stools, melena, nausea, syncope and vomiting Related Data: Date of Last Menstrual Period: 07/11/22 Review of Systems Const: Denies: fever(s), chills, fatigue or malaise ENMT: Denies: throat pain, ear or mastoid pain, nasal discharge or nasal congestion Card: Denies: chest pain, palpitations, irregular heart rhythm or syncope Resp: Denies: dyspnea, productive cough or non-productive cough GI: Reports: bloating and GI cramping; Denies: abdominal pain, nausea, vomiting, hematemesis, coffee ground emesis, heartburn, diarrhea, constipation, belching, excessive flatus, fecal incontinence, change in bowel habits, change in stool character, hematochezia or melena : Denies: flank pain, difficulty voiding, dysuria, urinary frequency, urinary urgency or hematuria Musc: Denies: neck pain or back pain Skin/Breast: Denies: rash or pruritus PFSH ED PFSH: Medical History Hypertension Social History (Reviewed 07/28/22 @ 12:19 by CRISTOPHER Linares Smoking and tobacco status: current every day smoker Female Reproductive History: Date of last menstrual period: 07/11/22 Physical Exam Const: COMMON NORMALS: no acute distress GENERAL APPEARANCE: cooperative and comfortable ORIENTATION/CONSCIOUSNESS: Yes awake, Yes oriented to person, Yes oriented to place and Yes oriented to time HENMT: COMMON NORMALS: normocephalic, atraumatic and hearing grossly normal bilaterally HEAD & SCALP: normocephalic and atraumatic Resp: COMMON NORMALS: normal respiratory effort, No retractions, No use of accessory muscles and clear to auscultation bilaterally AUSCULTATION: clear to auscultation bilaterally Cardio: COMMON NORMALS: regular rate, regular rhythm and No murmurs present (Cardio) RATE: regular rate RHYTHM: regular rhythm GI: COMMON NORMALS: Soft to palpation and No hepatosplenomegaly present AUSCULTATION: Yes normoactive bowel sounds PALPATION: Yes Soft to palpation, No Tenderness to palpation present (GI), No Guarding due to palpation present (GI) and Yes No hepatosplenomegaly present Extremity: COMMON NORMALS: normal to inspection, capillary refill normal, no clubbing, cyanosis or edema, no calf tenderness and no pedal edema Neuro: SENSORIUM/ORIENTATION: Yes oriented to person, Yes oriented to place and Yes oriented to time Skin: COMMON NORMALS: no rashes or lesions noted GENERAL SKIN EXAM: no rashes or lesions noted Course Vital Signs: Vital signs: Vital Signs Temperature 98.2 F 07/23/22 13:20 Pulse Rate 88 07/23/22 17:14 Respiratory Rate 14 07/23/22 17:14 Blood Pressure 125/78 07/23/22 17:14 Pulse Oximetry 96 07/23/22 17:14 Oxygen Delivery Me thod 07/23/22 13:20 MDM - Abdominal Pain Medical Decision Making Unremarkable ultrasound. Labs imaging reviewed. She had problems with ovarian cyst in the past we will discharge her home anti-inflammatories follow-up with her primary care if symptoms persist can return. Medical Records I reviewed the patient's medical records. Lab Data I reviewed the patient's lab results. : 07/23/22 14:11 07/23/22 14:11 Labs/Radiology: Radiology Impressions Pelvis Ultrasound 07/23/22 16:27 IMPRESSION: Basically unremarkable transabdominal ultrasound of the pelvis. Laboratory Results WBC 12.0 10^3/uL (4.0-10.0) H 07/23/22 14:11 RBC 4.63 10^6/uL (4.1-5.3) 07/23/22 14:11 Hgb 14.6 g/dL (11.5-15.3) 07/23/22 14:11 Hct 43.5 % (37.0-47.0) 07/23/22 14:11 MCV 94.0 fl (81-99) 07/23/22 14:11 MCH 31.5 pg (28.0-34.0) 07/23/22 14:11 MCHC 33.6 g/dL (30.0-36.0) 07/23/22 14:11 RDW 13.2 % (12.1-15.1) 07/23/22 14:11 Plt Count 271 10^3/cmm (130-400) 07/23/22 14:11 MPV 11.2 fL (7.4-10.4) H 07/23/22 14:11 Neut % (Auto) 57.9 % 07/23/22 14:11 Lymph % (Auto) 33.3 % 07/23/22 14:11 [place] % (Auto) 5.5 % 07/23/22 14:11 Eos % (Auto) 2.2 % 07/23/22 14:11 Baso % (Auto) 0.7 % 07/23/22 14:11 Neut # (Auto) 6.92 10^3/uL (1.8-7.7) 07/23/22 14:11 Lymph # (Auto) 4.0 10^3/uL (0.8-4.8) 07/23/22 14:11 [place] # (Auto) 0.7 10^3/uL (0.2-0.9) 07/23/22 14:11 Eos # (Auto) 0.3 10^3/uL (0.0-0.8) 07/23/22 14:11 Baso # (Auto) 0.1 10^3/uL (0.0-0.1) 07/23/22 14:11 Nucleated RBC % (auto) 0 % 07/23/22 14:11 Nucleated RBCs # 0.0 /100WBC 07/23/22 14:11 Sodium 138 mmol/L (136-145) 07/23/22 14:11 Potassium 4.1 mmol/L (3.5-5.1) 07/23/22 14:11 Chloride 105 mmol/L (98-107) 07/23/22 14:11 Carbon Dioxide 23 mmol/L (22-29) 07/23/22 14:11 Anion Gap 14.1 (5-19) 07/23/22 14:11 BUN 7 mg/dL (6-20) 07/23/22 14:11 Creatinine 0.7 mg/dL (0.5-0.9) 07/23/22 14:11 GFR Calculation 105.6 mL/min (90-130) 07/23/22 14:11 Glucose 96 mg/dL (65-115) 07/23/22 14:11 Calculated Osmolality 284 mOsm/kg (285-295) L 07/23/22 14:11 Calcium 8.7 mg/dL (8.5-10.5) 07/23/22 14:11 Total Bilirubin 0.2 mg/dL (0.15-1.2) 07/23/22 14:11 AST 14 U/L (0-32) 07/23/22 14:11 ALT 16 U/L (0-33) 07/23/22 14:11 Alkaline Phosphatase 113 U/L (35-105) H 07/23/22 14:11 Total Protein 6.1 g/dL (6.6-8.7) L 07/23/22 14:11 Albumin 3.4 g/dL (3.5-5.2) L 07/23/22 14:11 Globulin 2.7 g/dL (1.3-4.6) 07/23/22 14:11 Lipase 22 U/L (13-60) 07/23/22 14:11 HCG, Qual Negative (Negative) 07/23/22 13:31 Urine Color Yellow (Yellow) 07/23/22 13:31 Urine Appearance Clear (CLEAR) 07/23/22 13:31 Urine pH 6 (5-7) 07/23/22 13:31 Ur Specific [place] 1.005 (1.005-1.030) 07/23/22 13:31 Urine Protein 3+ (Negative) H 07/23/22 13:31 Urine Glucose (UA) Norm (Normal) 07/23/22 13:31 Urine Ketones Negative (Negative) 07/23/22 13:31 Urine Blood 2+ (Negative) H 07/23/22 13:31 Urine Nitrate Negative (Negative) 07/23/22 13:31 Urine Bilirubin Neg (Negative) 07/23/22 13:31 Urine Urobilinogen Norm mg/dL (Negative) 07/23/22 13:31 Ur Leukocyte Esterase Negative (Negative) 07/23/22 13:31 Urine RBC 0-4 /hpf (0-2) H 07/23/22 13:31 Urine WBC 0-4 /hpf (0-5) H 07/23/22 13:31 Ur Squamous Epith Cells 15-25 /hpf (0-5) H 07/23/22 13:31 Amorphous Sediment Not Reportable 07/23/22 13:31 Urine Bacteria 1+ /hpf (NONE) H 07/23/22 13:31 Discharge Plan Discharge Patient Disposition: Home Clinical Impression: Ovarian cyst Condition: Stable Prescriptions: New diclofenac sodium 75 mg tablet,delayed release (DR/EC) 75 mg PO Q12H PRN (Reason: pain) Qty: 20 0RF Discontinued diclofenac sodium 75 mg tablet,delayed release (DR/EC) 75 mg PO Q12H PRN (Reason: pain) Qty: 20 0RF No Action erythromycin 5 mg/gram (0.5 %) ointment 0.5 inch ophthalmic (eye) QID 14 Days Qty: 1 0RF doxycycline hyclate 100 mg capsule 100 mg PO BID 5 Days Qty: 10 0RF prednisone 20 mg tablet 20 mg PO DAILY 5 Days Qty: 5 0RF amoxicillin-pot clavulanate 875-125 mg tablet 1 tab PO BID Qty: 20 0RF pseudoephedrine HCl 120 mg tablet extended release 120 mg PO BID PRN (Reason: nasal congestion) Qty: 20 0RF hydrocodone-acetaminophen 5-325 mg tablet 1 tab PO Q6H PRN (Reason: pain) Qty: 14 0RF ondansetron 4 mg tablet,disintegrating 4 mg PO Q6H PRN (Reason: nausea and vomiting) Qty: 14 0RF Discharge Orders: Discharge ED (Routine); Ordered 07/23/22 Ordered By: Trevor Francois Referrals: Aleksandr Garsia MD [Primary Care Provider] - Discharge Diet: Usual diet Discharge Activity: Increase activity as tolerated Patient Instructions: Opioid Safety, Pain Management Activity Restrictions/Additional Instructions: Presumptive diagnosis of ovarian cyst based on your reported symptoms. Since she declined the full scope of the pelvic exam is difficult to be certain. Refill diclofenac was given for you to use for symptoms of follow-up with your primary care doctor if symptoms not improve or if they worsen. Coding Level of Care Code ED Education Analyst for Michael Cadet
[2022-07-23] MEDS: ketorolac 60 mg/2 mL INJ IM (17:05)
[2022-07-23 17:14] VITALS: BP 125/78; PULSE 88; RESP 14; O2SAT 96
== END 2022-07-23 17:15 | disposition home or self-care (01) ==
PROVIDERS: Emergency Provider Family Medicine; PCP Internal Medicine Medical Oncology
DX: N83.209 Unspecified ovarian cyst, unspecified side (principal); I10 Essential (primary) hypertension; F17.200 Nicotine dependence, unspecified, uncomplicated
CPT/HCPCS: 36415; 76856; 80053; 81001; 81025; 83690; 85025; 96372; 99285; J1885

== ENCOUNTER 2022-09-08 20:21 | Emergency (ER) | payer MEDICAID, SELFPAY ==
[2022-09-08 20:24] VITALS: PULSE 108; RESP 18; TEMP 36.8; O2SAT 97; BMI 39.0
--- NOTE | 2022-09-08 20:28 | XRR_ITS ---
PROCEDURE INFORMATION: Exam: XR Right Forearm Exam date and time: 09/08/2022 9:36 PM Age: 21 years old Clinical indication: Injury or trauma; Fall; Blunt trauma (contusions or hematomas); Arm, lower; Right TECHNIQUE: Imaging protocol: Radiologic exam of the Right forearm. Views: 2 views. COMPARISON: No relevant prior studies available. FINDINGS: Bones/joints: Normal. Soft tissues: Normal. XR/XR forearm RT 2V [id number] IMPRESSION: No acute findings.
--- NOTE | 2022-09-08 20:28 | XRR_ITS ---
PROCEDURE INFORMATION: Exam: XR Right Humerus Exam date and time: 09/08/2022 9:39 PM Age: 21 years old Clinical indication: Injury or trauma; Fall; Blunt trauma (contusions or hematomas); Arm, upper; Right TECHNIQUE: Imaging protocol: Radiologic exam of the Right humerus. Views: 2 or more views. COMPARISON: No relevant prior studies available. FINDINGS: Bones/joints: Normal. Soft tissues: Normal. XR/[place] [id number] IMPRESSION: No acute findings.
[2022-09-08 20:31] VITALS: BP 162/41
--- NOTE | 2022-09-08 20:32 | W.ED.FALL ---
HPI - Fall General: Chief Complaint: Fall Stated Complaint: Fall, Right arm injury Time Seen by Provider: 09/08/22 20:23 History of Present Illness: 21-year-old female comes in today for injury to the right shoulder and forearm. Patient reports tripping over her dog yesterday and landing on her right shoulder. Since then patient has had pain radiating from the shoulder to the hand. No obvious deformity or dislocation is noted. Patient appears in mild to moderate pain. Patient is alert and oriented. Associated symptoms-after fall: Denies chest pain Review of Systems Const: Denies: fever(s) Card: Denies: chest pain Resp: Denies: dyspnea Musc: Reports: extremity pain and joint pain Skin/Breast: Denies: rash PFSH ED PFSH: Medical History Hypertension Social History Smoking and tobacco status: current every day smoker Female Reproductive History: Date of last menstrual period: 09/08/22 Physical Exam Const: COMMON NORMALS: alert HENMT: COMMON NORMALS: normocephalic HEAD & SCALP: normocephalic Neck/C-Spine: COMMON NORMALS: full ROM Resp: COMMON NORMALS: normal respiratory effort and clear to auscultation bilaterally AUSCULTATION: clear to auscultation bilaterally Cardio: COMMON NORMALS: regular rate and regular rhythm RATE: regular rate RHYTHM: regular rhythm GI: COMMON NORMALS: Soft to palpation PALPATION: Yes Soft to palpation : COMMON NORMALS: Yes no CVA tenderness BLADDER/KIDNEY EXAM: Yes no CVA tenderness Back/Pelvis: COMMON NORMALS: no CVA tenderness Extremity: RIGHT UPPER EXTREMITY: Yes shoulder joint (Decreased range of motion due to pain) Right shoulder: Yes Right shoulder joint inspection exam, Yes palpation, Yes Right shoulder joint ROM exam and Yes Right shoulder joint neurovascular exam, Yes upper arm (No palpable deformity) Right upper arm: Yes inspection, Yes palpation and Yes neurovascular exam, Yes elbow joint (Decreased range of motion due to pain) Right elbow: Yes inspection, Yes palpation and Yes ROM, Yes lower arm (No palpable deformity) Right lower arm: Yes inspection, Yes palpation and Yes neurovascular exam and Yes wrist (No obvious swelling guarded movement) Right wrist: Yes inspection, Yes palpation and Yes ROM Neuro: SENSORIUM/ORIENTATION: Yes alert Course Vital Signs: Vital signs: Vital Signs Temperature 98.3 F 09/08/22 20:24 Pulse Rate 108 H 09/08/22 20:24 Respiratory Rate 18 09/08/22 20:24 Blood Pressure 162/41 09/08/22 20:31 Pulse Oximetry 97 09/08/22 20:24 Oxygen Delivery Me thod 09/08/22 20:24 MDM - Fall Medical Decision Making 21-year-old female comes in for evaluation of fall injury that occurred yesterday. Patient reports pain was worse today and she was unable to tolerate it. Patient appears nontoxic. Patient is very guarded with movement of the right upper extremity. No obvious deformity or dislocation is noted. Differential diagnosis includes but not limited to contusion, sprain, fracture, dislocation. X-ray shows no abnormalities. I wrote a prescription for diclofenac 75 mg 1 tablet twice a day for the next 7 days. Also recommend the patient use acetaminophen for further pain control. And hydrocodone for severe pain. Patient reports that diclofenac was too hard on her kidneys and she should not take it. I said that would be fine if she felt that way although her labs showed no significant abnormalities from June of this year. Lab Data Radiology Impressions Forearm X-Ray 09/08/22 20:28 IMPRESSION: No acute findings. Humerus X-Ray 09/08/22 20:28 IMPRESSION: No acute findings. Discharge Plan Discharge Patient Disposition: Home Clinical Impression: Sprain of right shoulder Qualifiers: Encounter type: initial encounter Shoulder sprain type: unspecified sprain Qualified Code(s): S43.401A - Unspecified sprain of right shoulder joint, initial encounter Condition: Stable Prescriptions: New hydrocodone-acetaminophen 5-325 mg tablet 1 tab PO Q8H PRN (Reason: pain (scale score 7-10)) Qty: 6 0RF diclofenac sodium 75 mg tablet,delayed release (DR/EC) 75 mg PO BID Qty: 14 0RF No Action amoxicillin 875 mg tablet 875 mg PO BID 7 Days Qty: 14 0RF Discharge Orders: Discharge ED (Routine); Ordered 09/08/22 Ordered By: Galileo Lynn Referrals: Aleksandr Garsia MD [Primary Care Provider] - Discharge Diet: Usual diet Discharge Activity: Increase activity as tolerated Patient Instructions: Musculoskeletal Pain (ED), Opioid Safety Activity Restrictions/Additional Instructions: Gentle stretching and range of motion exercises of the arm and shoulder. Use ice or heat for further pain relief. Increase activity as tolerated. Take diclofenac 75 mg 1 tablet 2 times a day for 7 days. This will help with pain and inflammation. Use acetaminophen for further control of pain. Use hydrocodone for severe pain. Follow-up with primary care in 3 to 4 days for recheck. Return to ED for new concerns. Coding Level of Care Code ED English Language Learner Tutor for Michael Fwd Exam Comprehensive
[2022-09-08] MEDS: HYDROcodone-acetaminophen 7.5-325 mg Tablet 1 TAB PO (20:43)
[2022-09-08 21:04] VITALS: PULSE 98; RESP 16; O2SAT 97
== END 2022-09-08 21:05 | disposition home or self-care (01) ==
PROVIDERS: Emergency Provider Nurse Practitioner Family; PCP Internal Medicine Medical Oncology
DX: S43.401A Unspecified sprain of right shoulder joint, initial encounter (principal); W01.0XXA Fall on same level from slipping, tripping and stumbling without subsequent striking against object, initial encounter
CPT/HCPCS: 73060; 73090; 99283

== ENCOUNTER 2023-01-05 23:06 | Emergency (ER) | payer MEDICAID, SELFPAY ==
[2023-01-05 23:10] VITALS: BP 156/95; PULSE 88; RESP 16; TEMP 36.8; O2SAT 96; BMI 39.0
--- NOTE | 2023-01-05 23:24 | W.ED.ABDPA2 ---
HPI - Abdominal Pain General: Chief Complaint: Abdominal Pain Stated Complaint: lower abd pain Time Seen by Provider: 01/05/23 23:08 Source: patient Mode of arrival: ambulatory Limitations: no limitations History of Present Illness: Patient is a 22-year-old female presents to ED today with a complaint of right lower quadrant abdominal pain that began yesterday. She states since onset her pain is worsened. No radiation. She does states she has a history of ovarian cysts. She cannot seem to tell me whether her pain currently feels like previous cysts. She reports nausea without episodes of emesis. She is having normal bowel movements. She reports urinary frequency but denies urgency, hesitancy, dysuria, hematuria. She does report fevers of 102 but attributes this to a recent diagnosis of a double ear infection that she is taking amoxicillin for. MD elicited complaint: abdominal pain Onset (ago): day(s) (yesterday) Pain Consistency: constant Location: RLQ Severity: severe Quality: sharp Radiation: none Migration to: no migration Exacerbating factors: nothing Relieving factors: nothing Associated Symptoms: Reports fever(s) (reports 102) and nausea; Denies change in bowel habits, chills, dysuria, hematuria and vomiting Related Data: Date of Last Menstrual Period: 12/26/22 Patient : No Review of Systems Const: Reports: fever(s) (reports 102); Denies: chills, body aches, fatigue or malaise ENMT: Reports: ear or mastoid pain; Denies: throat pain, odynophagia, ear discharge, change in hearing, tinnitus, disequilibrium, nasal discharge, nasal congestion, post nasal drip or sinus pain Card: Denies: chest pain Resp: Denies: dyspnea GI: Reports: abdominal pain and nausea; Denies: vomiting or change in bowel habits : Reports: urinary frequency; Denies: flank pain, difficulty voiding, dysuria, urinary urgency, urinary hesitancy, hematuria, vaginal odor, vaginal bleeding or vaginal discharge Musc: Denies: neck pain, back pain, extremity pain or joint pain Skin/Breast: Denies: rash Neuro: Denies: headache(s) or dizziness PFS ED PFSH: Medical History Hypertension Social History Smoking and tobacco status: current every day smoker Female Reproductive History: Date of last menstrual period: 12/26/22 Physical Exam Const: COMMON NORMALS: no acute distress, patient oriented x3, no limitations and alert GENERAL APPEARANCE: cooperative NUTRITIONAL APPEARANCE: obese ORIENTATION/CONSCIOUSNESS: Yes awake, Yes oriented to person, Yes oriented to place and Yes oriented to time HENMT: COMMON NORMALS: normocephalic, atraumatic and TM's normal bilaterally (maybe some mild serous otitis on R) HEAD & SCALP: normal to inspection, normocephalic and atraumatic FACE & SINUS: normal facial exam TYMPANIC MEMBRANE: TM's normal bilaterally (maybe some mild serous otitis on R) Eye: GENERAL EYE: appearance normal, both eyes and all related structures SCLERA: sclerae normal Resp: COMMON NORMALS: normal respiratory effort and clear to auscultation bilaterally AUSCULTATION: clear to auscultation bilaterally Cardio: COMMON NORMALS: regular rate and regular rhythm RATE: regular rate RHYTHM: regular rhythm GI: COMMON NORMALS: Normal to inspection, nondistended, normoactive bowel sounds present, Soft to palpation and no masses INSPECTION: Yes normal to inspection AUSCULTATION: Yes normoactive bowel sounds PALPATION: Yes Soft to palpation, Yes Tenderness to palpation present (GI) (diffusely but mostly to RLQ), No Guarding due to palpation present (GI) and No Rigid due to palpation OTHER: exam limited secondary to body habitus : COMMON NORMALS: Yes no CVA tenderness BLADDER/KIDNEY EXAM: Yes no CVA tenderness Back/Pelvis: COMMON NORMALS: no CVA tenderness Extremity: COMMON NORMALS: normal to inspection GENERAL: Yes normal exam except as noted Neuro: MOHINI COMA SCALE: document GCS findings [place] coma scale eye opening: Spontaneous [place] coma scale verbal response: Orientated [place] coma scale motor response: Obey commands Mohini coma scale total score: 15 COMMON NORMALS: patient oriented x3 SENSORIUM/ORIENTATION: Yes alert, Yes oriented to person, Yes oriented to place and Yes oriented to time Skin: COMMON NORMALS: no rashes or lesions noted GENERAL SKIN EXAM: no rashes or lesions noted Course Vital Signs: Vital signs: Vital Signs Temperature 98.3 F 01/05/23 23:10 Pulse Rate 88 01/05/23 23:10 Respiratory Rate 16 01/06/23 00:00 Blood Pressure 161/112 01/06/23 00:00 Pulse Oximetry 97 01/06/23 00:00 Oxygen Delivery Me thod 01/06/23 00:00 MDM - Abdominal Pain Medical Decision Making Patient here for right lower quadrant abdominal pain. Her vital signs are stable apart from hypertension. Blood work overall is unremarkable. She does have an elevated glucose of 174. Recommend she follow-up with PCP for hemoglobin A1c to evaluate for diabetes. UA showing 3+ blood but no evidence for infection. It was a contaminated specimen. CT abdomen and pelvis showing possible distal colitis versus a colonic underdistention. I do not feel this is responsible for patient's discomfort. They did see a moderate amount of stool in her proximal colon. We will go ahead and have her do a bland liquid diet and advance as tolerated and begin some MiraLAX to help with constipation. Return to ED precautions given. Otherwise I would like her to follow-up with primary care midweek for re-evaluation. Lab Data 01/05/23 23:30 01/05/23 23:30 Labs/Radiology: Radiology Impressions Abdomen/Pelvis CT 01/05/23 23:40 IMPRESSION: 1. Possible distal colitis versus colonic underdistention. No bowel obstruction. 2. Normal appendix. Laboratory Results WBC 11.7 10^3/uL (4.0-10.0) H 01/05/23 23:30 RBC 4.70 10^6/uL (4.1-5.3) 01/05/23 23:30 Hgb 14.3 g/dL (11.5-15.3) 01/05/23 23:30 Hct 42.7 % (37.0-47.0) 01/05/23 23:30 MCV 90.9 fl (81-99) 01/05/23 23:30 MCH 30.4 pg (28.0-34.0) 01/05/23 23:30 MCHC 33.5 g/dL (30.0-36.0) 01/05/23 23:30 RDW 12.6 % (12.1-15.1) 01/05/23 23:30 Plt Count 274 10^3/cmm (130-400) 01/05/23 23:30 MPV 10.9 fL (7.4-10.4) H 01/05/23 23:30 Neut % (Auto) 86.1 % 01/05/23 23:30 Lymph % (Auto) 12.1 % 01/05/23 23:30 [place] % (Auto) 0.9 % 01/05/23 23:30 Eos % (Auto) 0.1 % 01/05/23 23:30 Baso % (Auto) 0.3 % 01/05/23 23:30 Neut # (Auto) 10.06 10^3/uL (1.8-7.7) H 01/05/23 23:30 Lymph # (Auto) 1.4 10^3/uL (0.8-4.8) 01/05/23 23:30 [place] # (Auto) 0.1 10^3/uL (0.2-0.9) L 01/05/23 23:30 Eos # (Auto) 0.0 10^3/uL (0.0-0.8) 01/05/23 23: Baso # (Auto) 0.0 10^3/uL (0.0-0.1) 01/05/23 23: Nucleated RBC % (auto) 0 % 01/05/23 23: Nucleated RBCs # 0.0 /100WBC 01/05/23 23:30 Sodium 139 mmol/L (136-145) 01/05/23: Potassium 4.6 mmol/L (3.5-5.1) 01/05/23: Chloride 106 mmol/L (98-107) 01/05/23: Carbon Dioxide 21 mmol/L (22-29) L 01/05/23: Anion Gap 16.6 (5-19) 01/05/23 23: BUN 13 mg/dL (6-20) 01/05/23: Creatinine 1.0 mg/dL (0.5-0.9) H 01/05/23: GFR Calculation 69.3 mL/min (90-130) L 01/05/23: Glucose 174 mg/dL (65-115) H 01/05/23: Calculated Osmolality 292 mOsm/kg (285-295) 01/05/23: Calcium 8.7 mg/dL (8.5-10.5) 01/05/23: Total Bilirubin 0.2 mg/dL (0.15-1.2) 01/05/23 23:30 AST 11 U/L (0-32) 01/05/23 23:30 ALT 9 U/L (0-33) 01/05/23 23: Alkaline Phosphatase 108 U/L (35-105) H 01/05/23 23:30 Total Protein 6.4 g/dL (6.6-8.7) L 01/05/23: Albumin 3.8 g/dL (3.5-5.2) 01/05/23 23: Globulin 2.6 g/dL (1.3-4.6) 01/05/23 23: HCG, Qual Negative (Negative) 01/05/23 23: Urine Color Yellow (Yellow) 01/05/23 23: Urine Appearance Clear (CLEAR) 01/05/23 23: Urine pH 5 (5-7) 01/05/23 23: Ur Specific [place] 1.015 (1.005-1.030) 01/05/23: Urine Protein 3+ (Negative) H 01/05/23 23:30 Urine Glucose (UA) Norm (Normal) 01/05/23 23: Urine Ketones Negative (Negative) 01/05/23 23: Urine Blood 3+ (Negative) H 01/05/23 23:30 Urine Nitrate Negative (Negative) 01/05/23 23:30 Urine Bilirubin Neg (Negative) 01/05/23 23:30 Urine Urobilinogen Neg mg/dL (Negative) 01/05/23 23: Ur Leukocyte Esterase Negative (Negative) 01/05/23 23: Urine RBC 5-10 /hpf (0-2) H 01/05/23 23:30 Urine WBC 0-4 /hpf (0-5) H 01/05/23 23:30 Ur Squamous Epith Cells 10-15 /hpf (0-5) H 01/05/23 23: Amorphous Sediment Not Reportable 01/05/23 23: Urine Bacteria Trace /hpf (NONE) 01/05/23 23: Urine Mucus Trace /hpf 01/05/23 23:30 Discharge Plan Discharge Patient Disposition: Home Clinical Impression: Right sided abdominal pain Condition: Stable Prescriptions: No Action amoxicillin 875 mg tablet 875 mg PO BID 7 Days Qty: 14 0RF hydrocodone-acetaminophen 5-325 mg tablet 1 tab PO Q8H PRN (Reason: pain (scale score 7-10)) Qty: 6 0RF diclofenac sodium 75 mg tablet,delayed release (DR/EC) 75 mg PO BID Qty: 14 0RF Discharge Orders: Discharge ED (Routine); Ordered 01/06/23 Ordered By: Karmen Meier Referrals: Aleksandr Garsia MD [Primary Care Provider] - Patient Instructions: Abdominal Pain (ED) Coding Level of Care Code ED Plasterer Maintenance for Michael Cadet
[2023-01-05 23:38] LABS: Basophils % 0.3 %; Eosinophils % 0.1 %; Hematocrit 42.7 % (37.0-47.0); Hemoglobin 14.3 g/dL (11.5-15.3); Lymphocytes # 1.4 10^3/uL (0.8-4.8); Lymphocytes % 12.1 %; Mean Corpuscular HGB Conc 33.5 g/dL (30.0-36.0); Mean Corpuscular Hemoglobin 30.4 pg (28.0-34.0); Mean Corpuscular Volume 90.9 fl (81-99); Mean Platelet Volume 10.9 fL (7.4-10.4); Monocytes # 0.1 10^3/uL (0.2-0.9); Monocytes % 0.9 %; Neutrophils # 10.06 10^3/uL (1.8-7.7); Neutrophils % 86.1 %; Nucleated Red Blood Cells % 0 %; Platelet Count 274 10^3/cmm (130-400); Red Cell Distribution Width 12.6 % (12.1-15.1); White Blood Count 11.7 10^3/uL (4.0-10.0)
--- NOTE | 2023-01-05 23:40 | CTR_ITS ---
PROCEDURE INFORMATION: Exam: CT Abdomen And Pelvis With Contrast Exam date and time: 01/06/2023 12:19 AM Age: 22 years old Clinical indication: Abdominal pain; Localized; Right lower quadrant (rlq); Additional info: Rlq pain, nausea, fevers TECHNIQUE: Imaging protocol: Computed tomography of the abdomen and pelvis with contrast. Radiation optimization: All CT scans at this facility use at least one of these dose optimization techniques: automated exposure control; mA and/or kV adjustment per patient size (includes targeted exams where dose is matched to clinical indication); or iterative reconstruction. Contrast material: OMNI 350; Contrast volume: 100 ml; Contrast route: INTRAVENOUS (IV); REPORTING DATA: Count of CT and Cardiac NM exams in prior 12 months: This patient has received [address] and 0 known cardiac nuclear medicine studies in the 12 months prior to the current study. COMPARISON: CT abdomen pelvis wo con [id number] 03/01/2022 10:40 PM RADIATION DOSE METRICS: Total DLP (mGy-cm): 1361.38 FINDINGS: Liver: Normal. No mass. Gallbladder and bile ducts: Cholecystectomy changes are stable. Pancreas: Normal. No ductal dilation. Spleen: Unchanged splenomegaly. Adrenal glands: Normal. No mass. Kidneys and ureters: Normal. No hydronephrosis. Stomach and bowel: Distal colonic wall thickening versus underdistention. The proximal colon contains a moderate amount of stool. No evidence of bowel obstruction. Appendix: No evidence of appendicitis. Intraperitoneal space: Unremarkable. No free air. No significant fluid collection. Vasculature: Unremarkable. No abdominal aortic aneurysm. Lymph nodes: Unremarkable. No enlarged lymph nodes. Urinary bladder: Unremarkable as visualized. Reproductive: Unremarkable as visualized. Bones/joints: Unremarkable. No acute fracture. Soft tissues: Unremarkable. CT/CT abdomen pelvis w con* [id number] IMPRESSION: 1. Possible distal colitis versus colonic underdistention. No bowel obstruction. 2. Normal appendix.
[2023-01-05 23:49] LABS: Glucose Urine UA Norm (Normal); Ketones Urine Negative (Negative); Protein Urine 3+ (Negative); Specific Gravity, Urine 1.015 (1.005-1.030); Urine Appearance Clear (CLEAR); Urine Color Yellow (Yellow); pH Urine 5 (5-7)
[2023-01-05 23:50] LABS: Add Urine Microscopic? YES; Bilirubin Urine Neg (Negative); Blood Urine 3+ (Negative); Leukocyte Esterase Urine Negative (Negative); Nitrate Urine Negative (Negative); Urobilinogen Urine Neg (Negative)
[2023-01-05 23:51] LABS: Bacteria Urine TRACE /hpf; Mucus Urine TRACE /hpf; WBC Urine 0-4 /hpf (0-5)
[2023-01-05 23:52] LABS: Add Urine Culture? No
[2023-01-05 23:59] LABS: HCG, Serum Qual Negative (Negative)
[2023-01-06] VITALS: BP 161/112; RESP 16; O2SAT 97
[2023-01-06] MEDS: ondansetron 2 mg/ML SDV 2 mL 4 MG IVP
[2023-01-06] MEDS: morphine 4 mg/mL SDV 1 mL IVP (00:03)
[2023-01-06 00:05] LABS: Alanine Aminotransferase 9 U/L (0-33); Albumin Level 3.8 g/dL (3.5-5.2); Alkaline Phosphatase 108 U/L (35-105); Anion Gap 16.6 (5-19); Aspartate Amino Transferase 11 U/L (0-32); Blood Urea Nitrogen 13 mg/dL (6-20); Calcium 8.7 mg/dL (8.5-10.5); Carbon Dioxide 21 mmol/L (22-29); Chloride 106 mmol/L (98-107); Globulin 2.6 g/dL (1.3-4.6); Glomerular Filtration Rate 69.3 mL/min (90-130); Glucose 174 mg/dL (65-115); Osmolality Calculated 292 mOsm/kg (285-295); Potassium 4.6 mmol/L (3.5-5.1); Sodium 139 mmol/L (136-145); Total Bilirubin 0.2 mg/dL (0.15-1.2); Total Protein 6.4 g/dL (6.6-8.7)
[2023-01-06] MEDS: iohexol 350 mg/mL 500 mL Btl (per mL) IV (00:22)
[2023-01-06] MEDS: ketorolac 30 mg/mL INJ IVP (01:01)
[2023-01-06 03:00] VITALS: PULSE 75; RESP 16; O2SAT 95
[2023-01-06 03:13] VITALS: PULSE 75; RESP 16; O2SAT 95
== END 2023-01-06 03:03 | disposition home or self-care (01) ==
PROVIDERS: Emergency Provider Physician Assistant; PCP Internal Medicine Medical Oncology
DX: R10.31 Right lower quadrant pain (principal); I10 Essential (primary) hypertension; F17.210 Nicotine dependence, cigarettes, uncomplicated
CPT/HCPCS: 74177; 80053; 81001; 84703; 85025; 96374; 96375; 99285; J1885; J2270; J2405; Q9967

== ENCOUNTER 2023-02-12 20:16 | Emergency (ER) | payer MEDICAID, SELFPAY ==
[2023-02-12 20:48] LABS: Basophils # 0.1 10^3/uL (0.0-0.1); Basophils % 0.7 %; Eosinophils # 0.2 10^3/uL (0.0-0.8); Eosinophils % 1.4 %; Hematocrit 42.1 % (37.0-47.0); Lymphocytes # 3.4 10^3/uL (0.8-4.8); Lymphocytes % 32.9 %; Mean Corpuscular HGB Conc 33.3 g/dL (30.0-36.0); Mean Corpuscular Hemoglobin 30.8 pg (28.0-34.0); Mean Corpuscular Volume 92.5 fl (81-99); Mean Platelet Volume 10.9 fL (7.4-10.4); Monocytes # 0.5 10^3/uL (0.2-0.9); Monocytes % 4.7 %; Neutrophils # 6.21 10^3/uL (1.8-7.7); Neutrophils % 59.9 %; Nucleated Red Blood Cells % 0 %; Platelet Count 250 10^3/cmm (130-400); Red Blood Count 4.55 10^6/uL (4.1-5.3); Red Cell Distribution Width 13.3 % (12.1-15.1); White Blood Count 10.4 10^3/uL (4.0-10.0)
[2023-02-12 20:57] VITALS: BP 158/118; PULSE 110; RESP 18; TEMP 36.9; O2SAT 98; BMI 39.0
[2023-02-12 20:59] LABS: HCG, Serum Qual Negative (Negative)
[2023-02-12 21:06] LABS: Alanine Aminotransferase 17 U/L (0-33); Albumin Level 3.6 g/dL (3.5-5.2); Alkaline Phosphatase 94 U/L (35-105); Anion Gap 15.1 (5-19); Aspartate Amino Transferase 14 U/L (0-32); Blood Urea Nitrogen 7 mg/dL (6-20); Calcium 8.6 mg/dL (8.5-10.5); Carbon Dioxide 25 mmol/L (22-29); Chloride 104 mmol/L (98-107); Globulin 2.4 g/dL (1.3-4.6); Glomerular Filtration Rate 78.3 mL/min (90-130); Glucose 106 mg/dL (65-115); Lipase 22 U/L (13-60); Osmolality Calculated 288 mOsm/kg (285-295); Potassium 4.1 mmol/L (3.5-5.1); Sodium 140 mmol/L (136-145); Total Bilirubin 0.2 mg/dL (0.15-1.2)
--- NOTE | 2023-02-12 22:55 | ED_ITS ---
HPI - Abdominal Pain General: Chief Complaint: Abdominal Pain Stated Complaint: abdomen pain Time Seen by Provider: 02/12/23 22:55 History of Present Illness: 22-year-old female comes in today with concerns of lower abdominal pain that started 3 days ago. She is concerned may be related to her ovarian cyst or other ailment. Patient has recurrent ovarian cyst. Patient reports no fever. Patient reports no abnormal vaginal bleeding or discharge. Patient states some nausea but no vomiting, constipation or diarrhea. Patient appears nontoxic. Patient appears in mild pain. Associated Symptoms: Reports nausea; Denies constipation, diarrhea, fever(s) and vomiting Review of Systems Const: Denies: fever(s) Card: Denies: chest pain Resp: Denies: dyspnea GI: Reports: nausea; Denies: vomiting, diarrhea or constipation : Denies: difficulty voiding, vaginal bleeding or vaginal discharge Skin/Breast: Denies: rash Neuro: Denies: headache(s) PFSH ED PFSH: Medical History Hypertension Social History Smoking and tobacco status: current every day smoker Physical Exam Const: COMMON NORMALS: alert HENMT: COMMON NORMALS: normocephalic HEAD & SCALP: normocephalic MOUTH: Normal oral and palatal mucosa present Neck/C-Spine: COMMON NORMALS: full ROM and no lymphadenopathy Resp: COMMON NORMALS: normal respiratory effort Cardio: COMMON NORMALS: regular rhythm RATE: tachycardic RHYTHM: regular rhythm GI: COMMON NORMALS: Soft to palpation AUSCULTATION: Yes normoactive bowel sounds PALPATION: Yes Soft to palpation and Yes Tenderness to palpation present (GI) Details: LLQ : COMMON NORMALS: Yes no CVA tenderness BLADDER/KIDNEY EXAM: Yes no CVA tenderness Back/Pelvis: COMMON NORMALS: no CVA tenderness and thoracic and lumbar spine normal to inspection Extremity: COMMON NORMALS: no pedal edema Neuro: SENSORIUM/ORIENTATION: Yes alert Skin: COMMON NORMALS: turgor normal GENERAL SKIN EXAM: turgor normal Course Vital Signs: Vital signs: Vital Signs Temperature 98.4 F 02/12/23 20:57 Pulse Rate 111 H 02/13/23 01:24 Respiratory Rate 18 02/13/23 01:24 Blood Pressure 156/106 02/13/23 01:24 Pulse Oximetry 95 02/13/23 01:24 Oxygen Delivery Me thod Room Air 02/13/23 01:24 MDM - Abdominal Pain Medical Decision Making 22-year-old female comes in today for complaints of lower abdominal pain. On exam abdomen is soft with some tenderness in the lower left lower quadrant of the abdomen. Bowel sounds are active. Skin is warm and dry. Vital signs normal except for some elevation of blood pressure and pulse at 110. Differential diagnosis includes but not limited to ovarian cyst, ovarian torsion, constipation, malingering. CBC and CMP was unremarkable. Urinalysis had large amount of skin cells, will send to culture to rule out infection. Ultrasound noted blood flow to both ovaries without any sign of significant abnormalities. Reviewed exam with patient with recommendations for treatment and follow-up. Patient reported understanding she had relief of discomfort with Toradol and hydrocodone. Lab Data 02/12/23 20:25 02/12/23 20:25 Labs/Radiology: Laboratory Results WBC 10.4 10^3/uL (4.0-10.0) H 02/12/23 20:25 RBC 4.55 10^6/uL (4.1-5.3) 02/12/23 20:25 Hgb 14.0 g/dL (11.5-15.3) 02/12/23 20:25 Hct 42.1 % (37.0-47.0) 02/12/23 20:25 MCV 92.5 fl (81-99) 02/12/23 20:25 MCH 30.8 pg (28.0-34.0) 02/12/23 20:25 MCHC 33.3 g/dL (30.0-36.0) 02/12/23 20:25 RDW 13.3 % (12.1-15.1) 02/12/23 20:25 Plt Count 250 10^3/cmm (130-400) 02/12/23 20:25 MPV 10.9 fL (7.4-10.4) H 02/12/23 20:25 Neut % (Auto) 59.9 % 02/12/23 20:25 Lymph % (Auto) 32.9 % 02/12/23 20:25 [place] % (Auto) 4.7 % 02/12/23 20:25 Eos % (Auto) 1.4 % 02/12/23 20:25 Baso % (Auto) 0.7 % 02/12/23 20:25 Neut # (Auto) 6.21 10^3/uL (1.8-7.7) 02/12/23 20:25 Lymph # (Auto) 3.4 10^3/uL (0.8-4.8) 02/12/23 20:25 [place] # (Auto) 0.5 10^3/uL (0.2-0.9) 02/12/23 20:25 Eos # (Auto) 0.2 10^3/uL (0.0-0.8) 02/12/23 20:25 Baso # (Auto) 0.1 10^3/uL (0.0-0.1) 02/12/23 20:25 Nucleated RBC % (auto) 0 % 02/12/23 20:25 Nucleated RBCs # 0.0 /100WBC 02/12/23 20:25 Sodium 140 mmol/L (136-145) 02/12/23 20:25 Potassium 4.1 mmol/L (3.5-5.1) 02/12/23 20:25 Chloride 104 mmol/L (98-107) 02/12/23 20:25 Carbon Dioxide 25 mmol/L (22-29) 02/12/23 20:25 Anion Gap 15.1 (5-19) 02/12/23 20:25 BUN 7 mg/dL (6-20) 02/12/23 20:25 Creatinine 0.9 mg/dL (0.5-0.9) 02/12/23 20:25 GFR Calculation 78.3 mL/min (90-130) L 02/12/23 20:25 Glucose 106 mg/dL (65-115) 02/12/23 20:25 Calculated Osmolality 288 mOsm/kg (285-295) 02/12/23 20:25 Calcium 8.6 mg/dL (8.5-10.5) 02/12/23 20:25 Total Bilirubin 0.2 mg/dL (0.15-1.2) 02/12/23 20:25 AST 14 U/L (0-32) 02/12/23 20:25 ALT 17 U/L (0-33) 02/12/23 20:25 Alkaline Phosphatase 94 U/L (35-105) 02/12/23 20:25 Total Protein 6.0 g/dL (6.6-8.7) L 02/12/23 20:25 Albumin 3.6 g/dL (3.5-5.2) 02/12/23 20:25 Globulin 2.4 g/dL (1.3-4.6) 02/12/23 20:25 Lipase 22 U/L (13-60) 02/12/23 20:25 HCG, Qual Negative (Negative) 02/12/23 20:25 Urine Color Yellow (Yellow) 02/13/23 01:30 Urine Appearance Hazy (CLEAR) A 02/13/23 01:30 Urine pH 5 (5-7) 02/13/23 01:30 Ur Specific [place] 1.025 (1.005-1.030) 02/13/23 01:30 Urine Protein 3+ (Negative) H 02/13/23 01:30 Urine Glucose (UA) Norm (Normal) 02/13/23 01:30 Urine Ketones 1+ (Negative) H 02/13/23 01:30 Urine Blood 2+ (Negative) H 02/13/23 01:30 Urine Nitrate Negative (Negative) 02/13/23 01:30 Urine Bilirubin Neg (Negative) 02/13/23 01:30 Urine Urobilinogen Norm mg/dL (Negative) 02/13/23 01:30 Ur Leukocyte Esterase Negative (Negative) 02/13/23 01:30 Urine RBC 0-4 /hpf (0-2) H 02/13/23 01:30 Urine WBC 25-40 /hpf (0-5) H 02/13/23 01:30 Ur Squamous Epith Cells 15-25 /hpf (0-5) H 02/13/23 01:30 Amorphous Sediment 1+ /hpf 02/13/23 01:30 Urine Bacteria Trace /hpf (NONE) 02/13/23 01:30 Discharge Plan Discharge Patient Disposition: Home Clinical Impression: History of ovarian cyst Abdominal pain Qualifiers: Abdominal location: left lower quadrant Qualified Code(s): R10.32 - Left lower quadrant pain Condition: Stable Prescriptions: Continued hydrocodone-acetaminophen 5-325 mg tablet 1 tab PO Q8H PRN (Reason: pain (scale score 7-10)) Qty: 6 0RF diclofenac sodium 75 mg tablet,delayed release (DR/EC) 75 mg PO BID Qty: 14 0RF No Action amoxicillin 875 mg tablet 875 mg PO BID 7 Days Qty: 14 0RF Discharge Orders: Discharge ED (Routine); Ordered 02/13/23 Ordered By: Galileo Lynn Referrals: Aleksandr Garsia MD [Primary Care Provider] - Patient Instructions: Abdominal Pain (ED), Opioid Safety Activity Restrictions/Additional Instructions: Home and rest. Drink plenty of water and fluids. Follow-up with primary care for further evaluation and instructions. Return to ER for worsening symptoms such as fever greater than 100.4, blood in vomit or stool, inability to hold fluids down, or new concerns. 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
--- NOTE | 2023-02-12 23:05 | USR_ITS ---
PROCEDURE INFORMATION: Exam: US Pelvis Complete, Transabdominal and US Pelvis, Transvaginal Exam date and time: 02/12/2023 11:40 PM Age: 22 years old Clinical indication: Pelvic pain; Prior surgery; Surgery date: 6+ months; Surgery type: Tubal ligation 2020; Patient HX: G1-p1; Additional info: R/O ovarian torsion, history of ovarian cyst LABS AND CLINICAL REPORTS: Last menstrual period start date: 01/27/2023 TECHNIQUE: Imaging protocol: Real-time complete transabdominal and transvaginal pelvic ultrasound with image documentation. Transvaginal imaging was used for better evaluation of the endometrium, adnexa, and/or cervix. COMPARISON: US pelvic complete* [id number] 07/23/2022 4:45 PM FINDINGS: Uterus: Uterus measures 9.4 cm x 6.3 cm x 4.6 cm. The endometrial stripe measures 8 mm in diameter. There is a 2.0 cm x 1.4 cm x 1.9 cm echogenic soft tissue density with focal areas of shadowing within the submucosa of the anterior uterus. Right ovary/adnexa: Right ovary measures 3.4 cm x 2.5 cm x 2.9 cm. Right ovarian volume is 10.6 mL. The right ovary contains at least 3 hypoechoic cystic structures the largest measuring up to 1.1 cm in diameter. Color Doppler flow to the right ovary is present. Left ovary/adnexa: Left ovary measures 3.2 cm x 2.1 cm x 2.2 cm. Left ovarian volume is 7.7 mL. The left ovary contains at least 2 hypoechoic cystic structures the largest measuring up to 1.1 cm in diameter. Color Doppler flow to the left ovary is present. Intraperitoneal space: No intraperitoneal fluid is identified. Urinary bladder: Dedicated images of the urinary bladder were not obtained. US/US pelvic limited [id number] IMPRESSION: 1. No sonographic findings to suggest ovarian torsion. 2. There is a 2.0 cm x 1.4 cm x 1.9 cm echogenic soft tissue density with focal areas of shadowing within the submucosa of the anterior uterus. Finding is most compatible with a submucosal fibroid. 3. Benign-appearing bilateral ovarian cysts/follicles as described above.
[2023-02-13] MEDS: HYDROcodone-acetaminophen 5-325 mg Tablet 1 TAB PO ×2 (00:23→01:20)
[2023-02-13] MEDS: ketorolac 30 mg/mL INJ IM (00:24)
[2023-02-13 01:24] VITALS: BP 156/106; PULSE 111; RESP 18; O2SAT 95
[2023-02-13 02:01] LABS: Add Urine Culture? No; Add Urine Microscopic? YES; Amorphous Sediment Urine 1+ /hpf; Bacteria Urine TRACE /hpf; Bilirubin Urine Neg (Negative); Blood Urine 2+ (Negative); Glucose Urine UA Norm (Normal); Ketones Urine 1+ (Negative); Leukocyte Esterase Urine Negative (Negative); Nitrate Urine Negative (Negative); Protein Urine 3+ (Negative); RBC Urine 0-4 /hpf (0-2); Specific Gravity, Urine 1.025 (1.005-1.030); Squamous Epithelial Cell Urine 15-25 /hpf (0-5); Urine Appearance Hazy (CLEAR); Urine Color Yellow (Yellow); Urobilinogen Urine Norm (Negative); WBC Urine 25-40 /hpf (0-5); pH Urine 5 (5-7)
[2023-02-13 02:19] VITALS: PULSE 110; RESP 16; O2SAT 95
== END 2023-02-13 02:19 | disposition home or self-care (01) ==
PROVIDERS: Emergency Medicine; Emergency Provider Nurse Practitioner Family; PCP Internal Medicine Medical Oncology
DX: R10.32 Left lower quadrant pain (principal); I10 Essential (primary) hypertension; F17.210 Nicotine dependence, cigarettes, uncomplicated
CPT/HCPCS: 36415; 76857; 80053; 81001; 83690; 84703; 85025; 96372; 99285; J1885

== ENCOUNTER → 2023-03-06 09:51 | Outpatient (BNVA) | payer MEDICAID, SELFPAY | PROVIDERS: PCP Internal Medicine Medical Oncology; Visit Provider Nurse Practitioner Family | DX: M79.672 Pain in left foot (principal) | CPT/HCPCS: 73630 ==

== ENCOUNTER 2023-03-15 16:34 | Outpatient (CLI) | payer MEDICAID, SELFPAY ==
--- NOTE | 2023-03-15 17:00 | CTR_ITS ---
PROCEDURE INFORMATION: Exam: CT Left Lower Extremity Without Contrast, Foot Exam date and time: 03/15/2023 4:39 PM Age: 22 years old Clinical indication: Pain; Foot; Left; Additional info: R93.89 - abnormal findings on diagnostic imaging of other. . . TECHNIQUE: Imaging protocol: CT of the left lower extremity without contrast was performed. Exam focused on the foot. Radiation optimization: All CT scans at this facility use at least one of these dose optimization techniques: automated exposure control; mA and/or kV adjustment per patient size (includes targeted exams where dose is matched to clinical indication); or iterative reconstruction. REPORTING DATA: Count of CT and Cardiac NM exams in prior 12 months: This patient has received [address] and 0 known cardiac nuclear medicine studies in the 12 months prior to the current study. 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 There is no underlying fracture evident. Remaining osseous structures and joint surfaces are unremarkable. Alignment is intact. Soft tissues: Normal. 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
== END 2023-03-15 16:35 | disposition home or self-care (01) ==
LOC: RAD 16:36
PROVIDERS: PCP Internal Medicine Medical Oncology; Visit Provider Nurse Practitioner Family
DX: R93.89 Abnormal findings on diagnostic imaging of other specified body structures (principal); R93.7 Abnormal findings on diagnostic imaging of other parts of musculoskeletal system
CPT/HCPCS: 73700

== ENCOUNTER → 2023-03-29 08:37 | Outpatient (BNVA) | payer MEDICAID, SELFPAY | PROVIDERS: PCP Internal Medicine Medical Oncology; Visit Provider Podiatrist Foot & Ankle Surgery | DX: M79.672 Pain in left foot (principal); L97.512 Non-pressure chronic ulcer of other part of right foot with fat layer exposed | CPT/HCPCS: 85651; 86140; 86160; 86162; 86200; 86235; 86255; 86376; 86431 ==

== ENCOUNTER 2023-04-20 10:24 | Emergency (ER) | payer MEDICAID, SELFPAY ==
[2023-04-20 10:29] VITALS: BP 143/93; PULSE 106; RESP 15; TEMP 36.8; O2SAT 100; BMI 40.4
[2023-04-20 12:00] VITALS: BP 147/98; PULSE 89; RESP 16; O2SAT 98
--- NOTE | 2023-04-20 12:00 | ED_ITS ---
HPI - Abdominal Pain General: Chief Complaint: Abdominal Pain Stated Complaint: right side abd pain, n/v Time Seen by Provider: 04/20/23 11:27 Source: patient Mode of arrival: ambulatory History of Present Illness: 22-year-old female presents emergency room complaining of right upper quadrant abdominal pain epigastric pain for the last 2 days no dysuria urgency or frequency has been very nauseous no vomiting no diarrhea. Has previously had a cholecystectomy and a section. No trauma to the abdomen. She is normally on omeprazole and is continue to take it regularly she is also taken some Zofran for her nausea with minimal relief of symptoms MD elicited complaint: abdominal pain Pertinent past history: other (Previous cholecystectomy) Onset (ago): hour(s) Pain Consistency: constant Location: Epigastric Severity: moderate Quality: cramping Radiation: RUQ Exacerbating factors: nothing Relieving factors: nothing Associated Symptoms: Denies anorexia, bloating, chills, coffee ground emesis, constipation, GI cramping, diarrhea, dyspepsia, dysuria, fever(s), heartburn, hematuria, hematemesis, loose stools, nausea, poor appetite, syncope and vomiting Review of Systems Const: Denies: fever(s) or chills ENMT: Denies: throat pain, ear or mastoid pain, nasal discharge or nasal congestion Card: Denies: chest pain, palpitations or syncope Resp: Denies: dyspnea, productive cough or non-productive cough GI: Reports: abdominal pain; Denies: nausea, vomiting, hematemesis, coffee ground emesis, heartburn, diarrhe a, constipation, bloating or GI cramping : Denies: dysuria, urinary frequency, urinary urgency or hematuria Musc: Denies: neck pain or back pain Skin/Breast: Denies: rash or pruritus PFS ED PFSH: Medical History Hypertension Social History Smoking and tobacco status: current every day smoker Physical Exam Const: GENERAL APPEARANCE: cooperative and comfortable ORIENTATION/CONSCIOUSNESS: Yes awake, Yes oriented to person, Yes oriented to place and Yes oriented to time HENMT: COMMON NORMALS: normocephalic, atraumatic and hearing grossly normal bilaterally HEAD & SCALP: normocephalic and atraumatic Resp: COMMON NORMALS: normal respiratory effort, No retractions, No use of accessory muscles and clear to auscultation bilaterally AUSCULTATION: clear to auscultation bilaterally Cardio: COMMON NORMALS: regular rate, regular rhythm and No murmurs present (Cardio) RATE: regular rate RHYTHM: regular rhythm GI: COMMON NORMALS: No hepatosplenomegaly present AUSCULTATION: Yes normoactive bowel sounds PALPATION: Yes Tenderness to palpation present (GI) (Mild epigastric right upper quadrant no peritoneal signs), No Guarding due to palpation present (GI) and Yes No hepatosplenomegaly present Extremity: COMMON NORMALS: normal to inspection, capillary refill normal, no clubbing, cyanosis or edema, no calf tenderness and no pedal edema Neuro: SENSORIUM/ORIENTATION: Yes oriented to person, Yes oriented to place and Yes oriented to time Skin: COMMON NORMALS: no rashes or lesions noted GENERAL SKIN EXAM: no rashes or lesions noted Course Vital Signs: Vital signs: Vital Signs Temperature 98.2 F 04/20/23 10:29 Pulse Rate 94 04/20/23 15:43 Respiratory Rate 16 04/20/23 15:43 Blood Pressure 123/93 04/20/23 15:43 Pulse Oximetry 98 04/20/23 15:43 Oxygen Delivery Me thod Room Air 04/20/23 10:29 MDM - Abdominal Pain Medical Decision Making Labs and imaging reviewed. CT unremarkable. Suspect patient is having some dyspepsia we will increase her PPI. Discussed dietary restrictions follow-up with primary care Medical Records I reviewed the patient's medical records. Lab Data I reviewed the patient's lab results. 04/20/23 12:13 04/20/23 12:13 Labs/Radiology: Radiology Impressions Abdomen/Pelvis CT 04/20/23 13:31 IMPRESSION: 1. 3.7 cm right adnexal cystic lesion. If clinically indicated, pelvic ultrasound may be obtained for further evaluation. 2. Additional findings, as above. Laboratory Results WBC 11.8 10^3/uL (4.0-10.0) H 04/20/23 12:13 RBC 4.35 10^6/uL (4.1-5.3) 04/20/23 12:13 Hgb 13.1 g/dL (11.5-15.3) 04/20/23 12:13 Hct 40.4 % (37.0-47.0) 04/20/23 12:13 MCV 92.9 fl (81-99) 04/20/23 12:13 MCH 30.1 pg (28.0-34.0) 04/20/23 12:13 MCHC 32.4 g/dL (30.0-36.0) 04/20/23 12:13 RDW 12.9 % (12.1-15.1) 04/20/23 12:13 Plt Count 244 10^3/cmm (130-400) 04/20/23 12:13 MPV 11.0 fL (7.4-10.4) H 04/20/23 12:13 Neut % (Auto) 55.6 % 04/20/23 12:13 Lymph % (Auto) 34.9 % 04/20/23 12:13 [place] % (Auto) 6.5 % 04/20/23 12:13 Eos % (Auto) 1.7 % 04/20/23 12:13 Baso % (Auto) 0.7 % 04/20/23 12:13 Neut # (Auto) 6.57 10^3/uL (1.8-7.7) 04/20/23 12:13 Lymph # (Auto) 4.1 10^3/uL (0.8-4.8) 04/20/23 12:13 [place] # (Auto) 0.8 10^3/uL (0.2-0.9) 04/20/23 12:13 Eos # (Auto) 0.2 10^3/uL (0.0-0.8) 04/20/23 12:13 Baso # (Auto) 0.1 10^3/uL (0.0-0.1) 04/20/23 12:13 Nucleated RBC % (auto) 0 % 04/20/23 12:13 Nucleated RBCs # 0.0 /100WBC 04/20/23 12:13 Sodium 140 mmol/L (136-145) 04/20/23 12:13 Potassium 4.2 mmol/L (3.5-5.1) 04/20/23 12:13 Chloride 104 mmol/L (98-107) 04/20/23 12:13 Carbon Dioxide 28 mmol/L (22-29) 04/20/23 12:13 Anion Gap 12.2 (5-19) 04/20/23 12:13 BUN 11 mg/dL (6-20) 04/20/23 12:13 Creatinine 0.8 mg/dL (0.5-0.9) 04/20/23 12:13 GFR Calculation 89.7 mL/min (90-130) L 04/20/23 12:13 Glucose 86 mg/dL (65-115) 04/20/23 12:13 Calculated Osmolality 289 mOsm/kg (285-295) 04/20/23 12:13 Calcium 8.6 mg/dL (8.5-10.5) 04/20/23 12:13 Total Bilirubin 0.2 mg/dL (0.15-1.2) 04/20/23 12:13 AST 11 U/L (0-32) 04/20/23 12:13 ALT 24 U/L (0-33) 04/20/23 12:13 Alkaline Phosphatase 99 U/L (35-105) 04/20/23 12:13 Total Protein 5.9 g/dL (6.6-8.7) L 04/20/23 12:13 Albumin 3.5 g/dL (3.5-5.2) 04/20/23 12:13 Globulin 2.4 g/dL (1.3-4.6) 04/20/23 12:13 Lipase 15 U/L (13-60) 04/20/23 12:13 HCG, Qual Negative (Negative) 04/20/23 12:13 Urine Color Yellow (Yellow) 04/20/23 12:44 Urine Appearance Clear (CLEAR) 04/20/23 12:44 Urine pH 5 (5-7) 04/20/23 12:44 Ur Specific [place] 1.015 (1.005-1.030) 04/20/23 12:44 Urine Protein 3+ (Negative) H 04/20/23 12:44 Urine Glucose (UA) Norm (Normal) 04/20/23 12:44 Urine Ketones Negative (Negative) 04/20/23 12:44 Urine Blood 2+ (Negative) H 04/20/23 12:44 Urine Nitrate Negative (Negative) 04/20/23 12:44 Urine Bilirubin Neg (Negative) 04/20/23 12:44 Urine Urobilinogen Norm mg/dL (Negative) 04/20/23 12:44 Ur Leukocyte Esterase Negative (Negative) 04/20/23 12:44 Urine RBC 5-10 /hpf (0-2) H 04/20/23 12:44 Urine WBC Rare /hpf (0-5) 04/20/23 12:44 Ur Squamous Epith Cells 0-4 /hpf (0-5) H 04/20/23 12:44 Amorphous Sediment Not Reportable 04/20/23 12:44 Urine Bacteria Trace /hpf (NONE) 04/20/23 12:44 Discharge Plan Discharge Patient Disposition: Home Clinical Impression: Dyspepsia Condition: Stable Prescriptions: New pantoprazole 40 mg tablet,delayed release (DR/EC) 40 mg PO DAILY 56 Days Qty: 60 0RF No Action ibuprofen 800 mg tablet 800 mg PO Q8H PRN (Reason: pain) Qty: 20 0RF prednisone 10 mg tablet 10 mg PO DIRECTED 12 Days Qty: 42 0RF Rx Instructions: see taper instructions Discharge Orders: Discharge ED (Routine); Ordered 04/20/23 Ordered By: Trevor Francois Referrals: Aleksandr Garsia MD [Primary Care Provider] - Discharge Diet: As Directed Discharge Activity: Resume usual activity Patient Instructions: Diet for Stomach Ulcers and Gastritis (ED), Opioid Safety, Pain Management 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
[2023-04-20 12:38] LABS: Basophils # 0.1 10^3/uL (0.0-0.1); Basophils % 0.7 %; Eosinophils # 0.2 10^3/uL (0.0-0.8); Eosinophils % 1.7 %; Hematocrit 40.4 % (37.0-47.0); Hemoglobin 13.1 g/dL (11.5-15.3); Lymphocytes # 4.1 10^3/uL (0.8-4.8); Lymphocytes % 34.9 %; Mean Corpuscular HGB Conc 32.4 g/dL (30.0-36.0); Mean Corpuscular Hemoglobin 30.1 pg (28.0-34.0); Mean Corpuscular Volume 92.9 fl (81-99); Monocytes # 0.8 10^3/uL (0.2-0.9); Monocytes % 6.5 %; Neutrophils # 6.57 10^3/uL (1.8-7.7); Neutrophils % 55.6 %; Nucleated Red Blood Cells % 0 %; Platelet Count 244 10^3/cmm (130-400); Red Blood Count 4.35 10^6/uL (4.1-5.3); Red Cell Distribution Width 12.9 % (12.1-15.1); White Blood Count 11.8 10^3/uL (4.0-10.0)
[2023-04-20 12:42] LABS: Alanine Aminotransferase 24 U/L (0-33); Albumin Level 3.5 g/dL (3.5-5.2); Alkaline Phosphatase 99 U/L (35-105); Anion Gap 12.2 (5-19); Aspartate Amino Transferase 11 U/L (0-32); Blood Urea Nitrogen 11 mg/dL (6-20); Calcium 8.6 mg/dL (8.5-10.5); Carbon Dioxide 28 mmol/L (22-29); Chloride 104 mmol/L (98-107); Globulin 2.4 g/dL (1.3-4.6); Glomerular Filtration Rate 89.7 mL/min (90-130); Glucose 86 mg/dL (65-115); Lipase 15 U/L (13-60); Osmolality Calculated 289 mOsm/kg (285-295); Potassium 4.2 mmol/L (3.5-5.1); Sodium 140 mmol/L (136-145); Total Bilirubin 0.2 mg/dL (0.15-1.2); Total Protein 5.9 g/dL (6.6-8.7)
[2023-04-20 13:00] VITALS: BP 123/102; PULSE 95; RESP 16; O2SAT 98
[2023-04-20 13:24] LABS: Urine Appearance Clear (CLEAR); Urine Color Yellow (Yellow)
[2023-04-20 13:25] LABS: Add Urine Culture? No; Add Urine Microscopic? YES; Bacteria Urine TRACE /hpf; Bilirubin Urine Neg (Negative); Blood Urine 2+ (Negative); Glucose Urine UA Norm (Normal); Ketones Urine Negative (Negative); Leukocyte Esterase Urine Negative (Negative); Nitrate Urine Negative (Negative); Protein Urine 3+ (Negative); Specific Gravity, Urine 1.015 (1.005-1.030); Squamous Epithelial Cell Urine 0-4 /hpf (0-5); Urobilinogen Urine Norm (Negative); WBC Urine RARE /hpf (0-5); pH Urine 5 (5-7)
--- NOTE | 2023-04-20 13:31 | CTR_ITS ---
PROCEDURE INFORMATION: Exam: CT Abdomen And Pelvis Without Contrast Exam date and time: 04/20/2023 2:10 PM Age: 22 years old Clinical indication: Abdominal pain; Flank; Right; Additional info: Flank pain TECHNIQUE: Imaging protocol: Computed tomography of the abdomen and pelvis without contrast. Axial, coronal and sagittal reformatted images were created and reviewed. Radiation optimization: All CT scans at this facility use at least one of these dose optimization techniques: automated exposure control; mA and/or kV adjustment per patient size (includes targeted exams where dose is matched to clinical indication); or iterative reconstruction. REPORTING DATA: Count of CT and Cardiac NM exams in prior 12 months: This patient has received 2 known CTs and 0 known cardiac nuclear medicine studies in the 12 months prior to the current study. COMPARISON: CT abdomen pelvis w con* [id number] 01/06/2023 12:19 AM RADIATION DOSE METRICS: Total DLP (mGy-cm): 1325.67 FINDINGS: Liver: Mild hepatomegaly. Gallbladder and bile ducts: Status post cholecystectomy. No biliary ductal dilatation. Pancreas: Unremarkable. Spleen: Unremarkable. Adrenal glands: Normal. No mass. Kidneys and ureters: No mass. No radiodense calculi. No hydronephrosis. Stomach and bowel: No bowel wall thickening. No obstruction. No pneumatosis. Appendix: Normal. Intraperitoneal space: No free fluid. No organized fluid collection. No free air. Vasculature: Unremarkable. No aneurysm. Lymph nodes: No pathologically enlarged lymph nodes. Urinary bladder: Unremarkable as visualized. Reproductive: 3.7 cm right adnexal cystic lesion. Bones/joints: No acute osseous abnormality. Soft tissues: Unremarkable. CT/CT kidney stone [id number] IMPRESSION: 1. 3.7 cm right adnexal cystic lesion. If clinically indicated, pelvic ultrasound may be obtained for further evaluation. 2. Additional findings, as above.
[2023-04-20 14:00] VITALS: BP 125/89; PULSE 85; RESP 16; O2SAT 98
[2023-04-20 14:02] LABS: HCG, Serum Qual Negative (Negative)
[2023-04-20 15:00] VITALS: BP 126/83; PULSE 86; RESP 16; O2SAT 96
[2023-04-20] MEDS: acetaminophen 500 mg Tablet 1000 MG PO (15:37)
[2023-04-20 15:43] VITALS: BP 123/93; PULSE 94; RESP 16; O2SAT 98
== END 2023-04-20 15:44 | disposition home or self-care (01) ==
PROVIDERS: Emergency Provider Family Medicine; PCP Internal Medicine Medical Oncology
DX: R10.13 Epigastric pain (principal); I10 Essential (primary) hypertension; F17.210 Nicotine dependence, cigarettes, uncomplicated
CPT/HCPCS: 36415; 74176; 80053; 81001; 83690; 84703; 85025; 99284

== ENCOUNTER → 2023-05-30 11:15 | Outpatient (BNVA) | payer MEDICAID, SELFPAY | PROVIDERS: PCP Internal Medicine Medical Oncology; Visit Provider Podiatrist Foot & Ankle Surgery | DX: M76.72 Peroneal tendinitis, left leg (principal); M76.62 Achilles tendinitis, left leg; L84 Corns and callosities | CPT/HCPCS: 73610 ==

== ENCOUNTER 2023-07-09 07:06 | Outpatient (CLI) | payer MEDICAID, SELFPAY ==
--- NOTE | 2023-07-09 07:15 | MR_ITS ---
WS: [id number] EXAMINATION: MR ankle LT wo con* [id number] ORDER DATE: 07/09/2023 7:33 AM COMPARISON: None. HISTORY: M25.572 - Pain in left ankle and joints of left foot CONTRAST: None. TECHNIQUE: Axial proton density fat sat, axial T1, sagittal proton density, sagittal STIR, coronal T2 fat sat, and coronal T1 sequences performed. After contrast, axial T1 fat sat, coronal T1 fat sat, and sagittal T1 fat sat were performed. 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 Small amount of associated edema along the dorsal articulation involving the accessory navicular and navicular. Small amount of tenosynoviti s and tendinosis involving the tibialis posterior. Trace amount tenosynovitis involving the flexor di gitorum longus. Flexor hallucis longus appears normal. Distal Achilles appears intact. Normal peroneal tendons and peroneal tendon sheath. Normal visualized extensor compartment tendons. Normal medial and lateral malleolus. Normal deltoid ligament. Normal t alar dome. Normal bone marrow signal in the calcaneus. Normal bone marrow signal in the cuboid and ba se of the fifth metatarsal. Normal plantar aponeurosis. IMPRESSION: 1. 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 Accessory n avicular measures 12 mm. Findings suspicious for accessory navicular syndrome. 2. Small amount of tenosynovitis and tendinosis involving the tibialis posterior at the insertion. S light tenosynovitis flexor digitorum longus. 3. Normal peroneal tendon sheath. 4. Distal Achilles is normal in appearance. 5. No other acute findings.
== END 2023-07-09 07:07 | disposition home or self-care (01) ==
PROVIDERS: PCP Internal Medicine Medical Oncology; Visit Provider Podiatrist Foot & Ankle Surgery
DX: M76.72 Peroneal tendinitis, left leg (principal); M65.862 Other synovitis and tenosynovitis, left lower leg; M25.572 Pain in left ankle and joints of left foot
CPT/HCPCS: 73721

== ENCOUNTER 2023-10-12 11:34 | Emergency (ER) | payer MEDICAID, SELFPAY ==
[2023-10-12 11:40] VITALS: BP 145/103; PULSE 105; RESP 14; TEMP 36.9; O2SAT 97
--- NOTE | 2023-10-12 12:44 | PC.NURSE ---
THIS RN ASSUMED CARE AT THIS TIME
[2023-10-12 12:47] VITALS: BP 160/119; PULSE 90; RESP 16; O2SAT 98; O2SAT 99
--- NOTE | 2023-10-12 13:03 | W.ED.URI ---
HPI - URI/Sore Throat General: Chief Complaint: Upper Respiratory Infection Stated Complaint: neck pain Time Seen by Provider: 10/12/23 13:02 History of Present Illness: 22-year-old female comes in with sore throat for 3 weeks. Patient was first treated with azithromycin and steroids with minimal to no relief. Since then patient has been continued on Augmentin with no improvement. Patient appears nontoxic. Patient is managing secretions well. Respirations are even. Patient reports tobacco use. Associated symptoms: Deny fever(s), nausea or vomiting Review of Systems General: Reports: 10 or more systems reviewed and unremarkable except in HPI and below Const: Denies: fever(s) ENMT: Reports: throat pain Resp: Denies: dyspnea GI: Denies: nausea or vomiting : Denies: difficulty voiding Skin/Breast: Denies: rash PFSH ED PFSH: Medical History Hypertension Social History (Updated 07/18/23 @ 10:57 by Zoila Yu LPN) Smoking and tobacco/nicotine status: former use of tobacco/nicotine Alcohol intake: never Physical Exam Const: COMMON NORMALS: alert HENMT: COMMON NORMALS: normocephalic, TM's normal bilaterally and Normal external nose present HEAD & SCALP: normocephalic NOSE: Normal external nose present TYMPANIC MEMBRANE: TM's normal bilaterally MOUTH: Normal oral and palatal mucosa present THROAT: posterior oropharynx abnormal erythema Neck/C-Spine: COMMON NORMALS: no meningeal signs Resp: COMMON NORMALS: normal respiratory effort Cardio: COMMON NORMALS: regular rate RATE: regular rate Back/Pelvis: COMMON NORMALS: thoracic and lumbar spine normal to inspection Extremity: COMMON NORMALS: normal to inspection Neuro: SENSORIUM/ORIENTATION: Yes alert MENINGEAL SIGNS: Yes no meningeal signs Skin: COMMON NORMALS: turgor normal GENERAL SKIN EXAM: turgor normal Course Vital Signs: Vital signs: Vital Signs Temperature 98.5 F 10/12/23 11:40 Pulse Rate 90 10/12/23 12:47 Respiratory Rate 16 10/12/23 12:47 Blood Pressure 160/119 10/12/23 12:47 Pulse Oximetry 99 10/12/23 12:47 Oxygen Delivery Me thod Room Air 10/12/23 12:47 MDM - URI/Sore Throat Medical Decision Making 22-year-old female comes in today with persistent throat pain for the last 3 weeks. On exam patient has symmetrical posterior pharynx with some mild erythema. Vital signs are normal except for some mild elevation in blood pressure. Differential diagnosis includes not limited to GERD, PND, infectious pharyngitis. No signs of severe illness or injury is noted. No signs of tonsillar or pharyngeal abscess is noted. Patient will be started on steroids and recommend to follow-up with nuclear medicine supervisor for further evaluation. Patient can complete Augmentin as prescribed. Patient reported understanding and agreed to plan. No radiology studies performed this visit Discharge Plan Discharge Patient Disposition: Home Clinical Impression: Pharyngitis Qualifiers: Pharyngitis/tonsillitis etiology: unspecified etiology Qualified Code(s): J02.9 - Acute pharyngitis, unspecified Condition: Stable Prescriptions: New prednisone 20 mg tablet 20 mg PO BID 7 Days Qty: 14 0RF Discharge Orders: Discharge ED (Routine); Ordered 10/12/23 Ordered By: Galileo Lynn Referrals: Aleksandr Garsia MD [Primary Care Provider] - Discharge Diet: Usual diet Discharge Activity: Increase activity as tolerated Patient Instructions: Pharyngitis (ED) Activity Restrictions/Additional Instructions: Home and rest. Activity as tolerated. Use throat lozenges or sprays to help with the sore throat. Take prednisone as directed. Case management will contact you regarding follow-up appointment with nuclear medicine supervisor. Return to ER for fever greater than 100.4, increased shortness of breath, or new concerns. Coding Level of Care Code ED Account Retention Representative for Michael Cadet
[2023-10-12] MEDS: predniSONE 20 mg Tablet 60 MG PO (13:35)
[2023-10-12 13:37] VITALS: BP 148/103; PULSE 92; RESP 16; O2SAT 98
--- NOTE | 2023-10-14 17:10 | DCPLANNER ---
I faxed patients chart to ENT Dr. Michael office on 10/14/23 at [phone]. Clinic to contact patient. Faxed to [phone]
== END 2023-10-12 13:40 | disposition home or self-care (01) ==
PROVIDERS: Emergency Provider Nurse Practitioner Family; PCP Internal Medicine Medical Oncology
DX: J02.9 Acute pharyngitis, unspecified (principal); I10 Essential (primary) hypertension; Z87.891 Personal history of nicotine dependence
CPT/HCPCS: 99283; J7512

== ENCOUNTER 2023-10-23 13:24 | Outpatient (CLI) | payer MEDICAID, SELFPAY ==
--- NOTE | 2023-10-23 13:55 | USR_ITS ---
PROCEDURE INFORMATION: Exam: US Soft Tissue Head and Neck, TI-RADS Exam date and time: 10/23/2023 2:20 PM Age: 22 years old Clinical indication: Condition or disease; Other: Nodule; Additional info: Thyroid nodule TECHNIQUE: Imaging protocol: Real-time ultrasound scan of the neck with image documentation. Exam focused on the thyroid. COMPARISON: CT cervical spin wo con* [id number] 01/12/2019 9:34 AM FINDINGS: Right thyroid lobe: Not enlarged. Left thyroid lobe: Not enlarged. Isthmus: Not thickened. LESION 1: Thyroid nodule 1 Size: 0.8 x 1.0 x 1.5 cm Thyroid nodule 1 Location: Inferior left lobe. Thyroid nodule 1 Composition: Mixed cystic and solid Thyroid nodule 1 Echogenicity: Anechoic Thyroid nodule 1 Shape: Wider than tall Thyroid nodule 1 Margins: Smooth margins Thyroid nodule 1 Echogenic foci: Macrocalcifications Thyroid nodule 1 Score: 2 Lymph nodes: No enlarged nodes. US/US thyroid [id number] IMPRESSION: TI-RADS 2 nodule inferiorly in the left lobe which does not warrant further surveillance.
== END 2023-10-23 13:25 | disposition home or self-care (01) ==
LOC: RAD 13:24
PROVIDERS: PCP Internal Medicine Medical Oncology; Visit Provider Nurse Practitioner
DX: E04.1 Nontoxic single thyroid nodule (principal)
CPT/HCPCS: 76536

== ENCOUNTER 2023-10-25 07:07 | Emergency (ER) | payer MEDICAID, SELFPAY ==
[2023-10-25 07:10] VITALS: PULSE 128; RESP 18; TEMP 36.8; O2SAT 98; BMI 46.0
[2023-10-25 07:13] VITALS: BP 166/106; PULSE 119; RESP 80; O2SAT 96
[2023-10-25 07:15] VITALS: BP 166/106
--- NOTE | 2023-10-25 07:17 | XRR_ITS ---
PROCEDURE INFORMATION: Exam: XR Left Shoulder Exam date and time: 10/25/2023 7:23 AM Age: 22 years old Clinical indication: Injury or trauma; Fall; Blunt trauma (contusions or hematomas); Shoulder; Left TECHNIQUE: Imaging protocol: Radiologic exam of the left shoulder. 3image(s) are provided. Views: 2 or more views. COMPARISON: 1. CR XR shoulder LT min 2V* [id number] 02/21/2019 10:37 PM 2. CR XR chest 2V* [id number] 11/09/2019 11:16 PM FINDINGS: Bones/joints: Osseous alignment is maintained.No interval displaced fracture or dislocation is appreciated. Glenohumeral alignment appears maintained. Medial clavicular alignment appears relatively symmetric. There appears to be some minimal degeneration of the superolateral aspect of the humeral head. Lungs: No lobar consolidation is appreciated. There is some patchy subsegmental atelectasis although may be exaggerated with low lung volumes overall. Pleural space: No pneumothorax is appreciated. Soft tissues: No radiopaque foreign body or subcutaneous emphysema is appreciated. Other findings: No other significant interval changes are appreciated. XR/XR shoulder LT min 2V* [id number] IMPRESSION: Osseous alignment is maintained.No interval fracture or dislocation is appreciated.
--- NOTE | 2023-10-25 07:17 | XRR_ITS ---
PROCEDURE INFORMATION: Exam: XR Left Hip Exam date and time: 10/25/2023 7:27 AM Age: 22 years old Clinical indication: Injury or trauma; Fall; Blunt trauma (contusions or hematomas); Left; Hip TECHNIQUE: Imaging protocol: Radiologic exam of the left hip. 2image(s) are provided. Views: 2 or 3 views hip with pelvis when performed. COMPARISON: CT kidney stone [id number] 04/20/2023 2:10 PM. Pelvis radiograph report of 2011. FINDINGS: Bones/joints: Osseous alignment is maintained.No interval displaced fracture or dislocation is appreciated. The included sacral arcuate lines appear maintained. Soft tissues: No radiopaque foreign body or subcutaneous emphysema is appreciated. There is some minimal chronic appearing soft tissue calcification similar overall. There is some prominence of the soft tissues with skin fold averaging. Other findings: No other significant interval changes are appreciated. XR/XR hip LT 2-3V wo/w pel* [id number] IMPRESSION: Osseous alignment is maintained.No interval fracture or dislocation is appreciated.
--- NOTE | 2023-10-25 07:40 | ED_ITS ---
HPI - Fall General: Chief Complaint: Fall Stated Complaint: Fall/Left shoulder/hip pain Time Seen by Provider: 10/25/23 07:16 History of Present Illness: Patient comes to the ER complains of slipping on the snow falling and landing on her left shoulder and left hip. Patient has pain in these areas now. Patient has good range of motion in her shoulder and is able to put weight on her hip with pain. Patient did not have pain in these areas before her fall. There is no loss of consciousness. Patient has no other complaints at this time. Review of Systems General: Reports: 10 or more systems reviewed and unremarkable except in HPI and below PFSH ED PFSH: Medical History Hypertension Social History Smoking and tobacco/nicotine status: former use of tobacco/nicotine Alcohol intake: never Physical Exam HENMT: COMMON NORMALS: normocephalic, atraumatic, hearing grossly normal bilaterally, external ears normal, Normal external nose present, moist oral mucous membranes and oropharynx normal HEAD & SCALP: normocephalic and atraumatic NOSE: Normal external nose present EXTERNAL EAR: Yes external ears normal Neck/C-Spine: COMMON NORMALS: full ROM, no lymphadenopathy, supple, no meningeal signs, no JVD and Thyroid normal THYROID: Thyroid normal Chest: COMMONS NORMALS: normal inspection of the chest and normal palpation of entire chest wall Resp: COMMON NORMALS: normal respiratory effort, No retractions, No use of accessory muscles and clear to auscultation bilaterally AUSCULTATION: clear to auscultation bilaterally Cardio: COMMON NORMALS: no JVD, regular rate, regular rhythm, S1 normal heart sound present, S2 normal heart sound present, No gallops present (Cardio), No clicks present (Cardio), No murmurs present (Cardio) and No rub (Cardio) RATE: regular rate RHYTHM: regular rhythm HEART SOUNDS: S1 normal heart sound present and S2 normal heart sound present GI: COMMON NORMALS: Normal to inspection, nondistended, normoactive bowel sounds present, Soft to palpation, non-tender, No hepatosplenomegaly present and no masses PALPATION: Yes Soft to palpation and Yes No hepatosplenomegaly present Extremity: NARRATIVE EXTREMITY EXAM: Minimal pain with palpation over left anterior shoulder region, and left posterior buttock region. Neuro: MENINGEAL SIGNS: Yes no meningeal signs Course Vital Signs: Vital signs: Vital Signs Temperature 98.3 F 10/25/23 07:10 Pulse Rate 119 H 10/25/23 07:13 Respiratory Rate 80 H 10/25/23 07:13 Blood Pressure 166/106 10/25/23 07:15 Pulse Oximetry 96 10/25/23 07:13 Oxygen Delivery Me thod Room Air 10/25/23 07:13 MDM - Fall Medical Decision Making Patient fell in the snow and hurt her left shoulder and left hip. These areas were x-rayed no acute fracture noted. Patient be discharged home to follow-up with her PCP on an as-needed basis. Differential Diagnosis Unlikely syncope, dislocation of shoulder region, fracture of wrist, compression fracture, concussion with loss of consciousness or concussion without loss of consciousness Medical Records I reviewed the patient's medical records. Lab Data I reviewed the patient's lab results. Radiology Impressions Hip/Pelvis X-Ray 10/25/23 07:17 IMPRESSION: Osseous alignment is maintained.No interval fracture or dislocation is appreciated. Shoulder X-Ray 10/25/23 07:17 IMPRESSION: Osseous alignment is maintained.No interval fracture or dislocation is appreciated. All radiology interpretation(s) finalized by discharge Discharge Plan Discharge Patient Disposition: Home Clinical Impression: Fall, Musculoskeletal pain Condition: Stable Prescriptions: No Action No Known Home Medications Discharge Orders: Discharge ED (Routine); Ordered 10/25/23 Ordered By: James Suh Referrals: Sridevi Awad FNP [Primary Care Provider] - 1 week Patient Instructions: Pain Management, Musculoskeletal Pain (ED) Activity Restrictions/Additional Instructions: Your x-rays were negative for acute fracture. You have contusions and musculoskeletal pain secondary to the fall. Please take [id number] Tylenol and/or ibuprofen as needed for pain relief. Please follow-up with with your family practice physician within the next 7 to 10 days for further evaluation and treatment. Coding Level of Care Code ED Chenille Machine Operator for Michael Cadet
[2023-10-25 09:18] VITALS: BP 166/106; RESP 21
== END 2023-10-25 09:26 | disposition home or self-care (01) ==
PROVIDERS: Emergency Provider Emergency Medicine; PCP Nurse Practitioner
DX: M25.512 Pain in left shoulder (principal); M25.552 Pain in left hip; I10 Essential (primary) hypertension; Z87.891 Personal history of nicotine dependence; W00.0XXA Fall on same level due to ice and snow, initial encounter
CPT/HCPCS: 73030; 73502; 99284

== ENCOUNTER 2024-06-27 19:34 | Emergency (ER) | payer MEDICAID, SELFPAY ==
[2024-06-27 20:27] VITALS: BP 142/93; PULSE 103; RESP 17; TEMP 36.9; O2SAT 96; BMI 39.0
[2024-06-27 21:04] LABS: Charge for UA Resulting for Rev
[2024-06-27 21:05] LABS: Basophils % 0.3 %; Eosinophils # 0.1 10^3/uL (0.0-0.8); Hematocrit 42.6 % (36-47); Lymphocytes # 2.3 10^3/uL (0.8-4.8); Lymphocytes % 16.8 %; Mean Corpuscular HGB Conc 33.6 g/dL (30-55); Mean Corpuscular Hemoglobin 31.7 pg (27-33); Mean Corpuscular Volume 94.5 fl (85-98); Mean Platelet Volume 10.9 fL (7.4-10.4); Monocytes # 0.6 10^3/uL (0.2-0.9); Monocytes % 4.7 %; Neutrophils % 76.8 %; Nucleated Red Blood Cells % 0 %; Platelet Count 240 10^3/cmm (157-399); Red Blood Count 4.51 10^6/uL (3.85-5.65); White Blood Count 13.53 10^3/uL (3.29-11.43)
[2024-06-27 21:07] LABS: Bilirubin Urine 1+ (Negative); Blood Urine 3+ (Negative); Glucose Urine UA Negative (Normal); Ketones Urine Trace (Negative); Leukocyte Esterase Urine 3+ (Negative); Nitrate Urine Positive (Negative); Specific Gravity, Urine 1.026 (1.005-1.030); Urine Appearance Turbid (CLEAR); pH Urine 6.5 (5-7)
[2024-06-27 21:12] LABS: Bacteria Urine 4+ /hpf; Hyaline Casts Urine 2.98 /lpf; Protein Urine 3+ (Negative); RBC Urine >100 /hpf (0-2); Squamous Epithelial Cell Urine 0-5 /hpf (0-5); Urine Color Orange (Yellow); WBC Urine >100 /hpf (0-5)
[2024-06-27 21:23] LABS: Add Urine Culture? Yes; UA Slide Review UA Slide Review Perf
[2024-06-27 21:25] LABS: Alanine Aminotransferase 26 U/L (0-33); Albumin Level 3.8 g/dL (3.5-5.2); Alkaline Phosphatase 124 U/L (35-105); Anion Gap 15.6 (5-19); Aspartate Amino Transferase 17 U/L (0-32); Blood Urea Nitrogen 13 mg/dL (6-20); Carbon Dioxide 24 mmol/L (22-29); Chloride 103 mmol/L (98-107); Creatinine Clr Calc Pharmacy 143.1626; Glomerular Filtration Rate 77.6 mL/min (90-130); Glucose 98 mg/dL (65-115); Osmolality Calculated 286 mOsm/kg (285-295); Potassium 4.6 mmol/L (3.5-5.1); Sodium 138 mmol/L (136-145); Total Bilirubin 0.4 mg/dL (0.15-1.2); Total Protein 6.8 g/dL (6.6-8.7)
[2024-06-28 01:49] VITALS: BP 185/115; PULSE 90; RESP 18; O2SAT 100
--- NOTE | 2024-06-28 02:11 | CTR_ITS ---
PROCEDURE INFORMATION: Exam: CT Abdomen And Pelvis Without Contrast Exam date and time: 06/28/2024 2:22 AM Age: 23 years old Clinical indication: Other: Hematuria/uti; Abdominal pain; Prior surgery; Surgery date: 6+ months; Surgery type: Gb. Csection; Patient HX: Bilat flank pain with hematuria. Positive for UTI. ; Additional info: Flank pain hematuria UTI TECHNIQUE: Imaging protocol: Computed tomography of the abdomen and pelvis without contrast. Radiation optimization: All CT scans at this facility use at least one of these dose optimization techniques: automated exposure control; mA and/or kV adjustment per patient size (includes targeted exams where dose is matched to clinical indication); or iterative reconstruction. COMPARISON: CT kidney stone [id number] 04/20/2023 2:10 PM RADIATION DOSE METRICS: Total DLP (mGy-cm): 1229.73 FINDINGS: Lungs: The lung bases are clear. Heart: Heart size is within normal limits. There is no pericardial effusion or pericardial thickening. Liver: There is diffuse decreased attenuation of the hepatic parenchyma consistent with fatty infiltration. The liver is otherwise normal. There are no hepatic masses identified. Gallbladder and biliary ducts: The gallbladder is surgically absent. There is no ductal dilatation. Pancreas: The pancreas is normal. Spleen: The spleen is normal. Adrenal glands: The adrenal glands are normal. Kidneys and ureters: No renal calcifications are identified. There is no hydronephrosis. Stomach and bowel: There is no large or small bowel obstruction. There is no evidence of bowel wall thickening. Appendix: A normal appendix is identified. Intraperitoneal space: No inflammatory changes are identified. There is no free fluid or fluid collection seen. There is no pneumoperitoneum. Vasculature: The aorta is normal in course and caliber. No significant atherosclerotic calcifications are present. Lymph nodes: No enlarged lymph nodes are identified. Urinary bladder: The bladder is unremarkable. Reproductive: The uterus is present. Bones/joints: No acute osseous abnormalities are seen. Soft tissues: Calcifications in the subcutaneous fat of the left lower anterior abdominal wall possibly injection granulomata, stable. CT/CT kidney stone [id number] IMPRESSION: No acute intra-abdominal or pelvic process.
[2024-06-28 02:32] LABS: HCG, Serum Qual Negative (Negative)
[2024-06-28] MEDS: sodium chloride 0.9% 1,000 ML 999 ML IV (02:43)
[2024-06-28] MEDS: cefTRIAXone 1,000 mg SDV 1000 MG IVP (02:43)
[2024-06-28 02:48] VITALS: PULSE 92; RESP 16; O2SAT 99
[2024-06-28] MEDS: ketorolac 30 mg/mL INJ IVP (04:08)
[2024-06-28] MEDS: ondansetron 2 mg/ML SDV 2 mL 4 MG IVP (04:10)
[2024-06-28 04:11] VITALS: RESP 18; O2SAT 97
[2024-06-28] MEDS: morphine 4 mg/mL SDV 1 mL IVP (04:11)
[2024-06-28 04:14] VITALS: PULSE 90; RESP 16; O2SAT 97
--- NOTE | 2024-06-28 05:55 | ED_ITS ---
HPI - Abdominal Pain 2 General: Chief Complaint: Abdominal Pain Stated Complaint: lower abd pain Time Seen by Provider: 06/28/24 02:10 History of Present Illness: 23 year old female. She complains of low er abdominal and back pain. No fever. Some nausea, no vomiting. She has hematuria she says. No other vaginal discharge. She does not believe she is . Related Data Previous Rx's Medication Instructions Recorded cefdinir 300 mg capsule 300 mg PO BID #14 caps 06/28/24 hydrocodone 5 mg-acetaminophen 325 1 tab PO Q8H PRN pain #7 tabs 06/28/24 mg tablet ketorolac 10 mg tablet 10 mg PO TID PRN pain #10 tabs 06/28/24 Allergies Allergy/AdvReac Type Severity Reaction Status Date / Time meningococcal vaccine B and C Allergy ALGY-Rash Verified 06/27/24 20:30 methylprednisolone Allergy ADR-Halluci Verified 06/27/24 20:30 nating oseltamivir [From Tamiflu] Allergy ALGY-Hives Verified 06/27/24 20:30 sulfamethoxazole Allergy ALGY-Hives Verified 06/27/24 20:30 [From Bactrim] trimethoprim [From Bactrim] Allergy ALGY-Hives Verified 06/27/24 20:30 PFSH ED 2 PFSH: Medical History Hypertension Social History Smoking and tobacco/nicotine status: former use of tobacco/nicotine Alcohol intake: never Physical Exam 2 Const: COMMON NORMALS: no acute distress GENERAL APPEARANCE: cooperative; not ill appearing and not frail appearing HENMT: COMMON NORMALS: normocephalic, atraumatic and Normal external nose present HEAD & SCALP: normocephalic and atraumatic FACE & SINUS: normal facial exam and face symmetric NOSE: Normal external nose present Eye: COMMON NORMALS: Equal, round and reactive pupils present and EOMs intact bilaterally PUPIL: Yes Equal, round and reactive pupils present Neck/C-Spine: GENERAL: Yes trachea midline Chest: CHEST: Yes Symmetrical chest wall rise Resp: COMMON NORMALS: normal respiratory effort, No retractions, No use of accessory muscles and clear to auscultation bilaterally AUSCULTATION: clear to auscultation bilaterally Cardio: COMMON NORMALS: regular rate and regular rhythm RATE: regular rate RHYTHM: regular rhythm GI: COMMON NORMALS: Normal to inspection, nondistended, normoactive bowel sounds present PALPATION: Yes Tenderness to palpation present (GI) Extremity: COMMON NORMALS: no pedal edema Neuro: MOHINI COMA SCALE: document GCS findings Mohini coma scale eye opening: Spontaneous [place] coma scale verbal response: Orientated Mohini coma scale motor response: Obey commands Mohini coma scale total score: 15 S ENSORY EXAM: Yes extremities (intact) Psych: COMMON NORMALS: speech normal SPEECH: Yes normal speech Skin: COMMON NORMALS: no rashes or lesions noted GENERAL SKIN EXAM: no rashes or lesions noted Course 2 Vital Signs: Vital signs: Vital Signs Temperature 98.4 F 06/27/24 20:27 Pulse Rate 90 06/28/24 04:14 Respiratory Rate 16 06/28/24 04:14 Blood Pressure 185/115 06/28/24 01:49 Pulse Oximetry 97 06/28/24 04:14 Oxygen Delivery Me thod Room Air 06/28/24 04:14 MDM - Abdominal Pain Medical Decision Making 23 year old female with low abdominal and low back pain. White blood cell count is 13.5. CMP is not remarkable. Your analysis shows significant hemorrhagic urinary tract infection. CT is negative for stone or obstruction. She has received Gabrielle rocephin here. She'll go home on cefdinir. She'll return for any worsening symptoms despite her treatment. Lab Data 06/27/24 21:00 06/27/24 21:00 Labs/Radiology: Radiology Impressions Abdomen/Pelvis CT 06/28/24 02:11 IMPRESSION: No acute intra-abdominal or pelvic process. Laboratory Results WBC 13.53 10^3/uL (3.29-11.43) H 06/27/24 21:00 RBC 4.51 10^6/uL (3.85-5.65) 06/27/24 21:00 Hgb 14.30 g/dL (11.27-16.99) 06/27/24 21:00 Hct 42.6 % (36-47) 06/27/24 21:00 MCV 94.5 fl (85-98) 06/27/24 21:00 MCH 31.7 pg (27-33) 06/27/24 21:00 MCHC 33.6 g/dL (30-55) 06/27/24 21:00 RDW 14.0 % (12.1-15.1) 06/27/24 21:00 Plt Count 240 10^3/cmm (157-399) 06/27/24 21:00 MPV 10.9 fL (7.4-10.4) H 06/27/24 21:00 Neut % (Auto) 76.8 % 06/27/24 21:00 Lymph % (Auto) 16.8 % 06/27/24 21:00 [place] % (Auto) 4.7 % 06/27/24 21:00 Eos % (Auto) 1.0 % 06/27/24 21:00 Baso % (Auto) 0.3 % 06/27/24 21:00 Neut # (Auto) 10.40 10^3/uL (1.8-7.7) H 06/27/24 21:00 Lymph # (Auto) 2.3 10^3/uL (0.8-4.8) 06/27/24 21:00 Parmer # (Auto) 0.6 10^3/uL (0.2-0.9) 06/27/24 21:00 Eos # (Auto) 0.1 10^3/uL (0.0-0.8) 06/27/24 21:00 Baso # (Auto) 0.0 10^3/uL (0.0-0.1) 06/27/24 21:00 Nucleated RBC % (auto) 0 % 06/27/24 21:00 Nucleated RBCs # 0.0 /100WBC 06/27/24 21:00 Sodium 138 mmol/L (136-145) 06/27/24 21:00 Potassium 4.6 mmol/L (3.5-5.1) 06/27/24 21:00 Chloride 103 mmol/L (98-107) 06/27/24 21:00 Carbon Dioxide 24 mmol/L (22-29) 06/27/24 21:00 Anion Gap 15.6 (5-19) 06/27/24 21:00 BUN 13 mg/dL (6-20) 06/27/24 21:00 Creatinine 0.9 mg/dL (0.5-0.9) 06/27/24 21:00 GFR Calculation 77.6 mL/min (90-130) L 06/27/24 21:00 Glucose 98 mg/dL (65-115) 06/27/24 21:00 Calculated Osmolality 286 mOsm/kg (285-295) 06/27/24 21:00 Calcium 9.0 mg/dL (8.5-10.5) 06/27/24 21:00 Total Bilirubin 0.4 mg/dL (0.15-1.2) 06/27/24 21:00 AST 17 U/L (0-32) 06/27/24 21:00 ALT 26 U/L (0-33) 06/27/24 21:00 Alkaline Phosphatase 124 U/L (35-105) H 06/27/24 21:00 Total Protein 6.8 g/dL (6.6-8.7) 06/27/24 21:00 Albumin 3.8 g/dL (3.5-5.2) 06/27/24 21:00 Globulin 3.0 g/dL (1.3-4.6) 06/27/24 21:00 HCG, Qual Negative (Negative) 06/27/24 21:00 Urine Color [place] (Yellow) A 06/27/24 20: Urine Appearance Turbid (CLEAR) A 06/27/24 20: Urine pH 6.5 (5-7) 06/27/24 20: Ur Specific [place] 1.026 (1.005-1.030) 06/27/24 20:32 Urine Protein 3+ (Negative) A 06/27/24 20: Urine Glucose (UA) Negative (Normal) 06/27/24 20: Urine Ketones Trace (Negative) 06/27/24 20: Urine Blood 3+ (Negative) A 06/27/24 20: Urine Nitrate Positive (Negative) A 06/27/24 20: Urine Bilirubin 1+ (Negative) H 06/27/24 20: Urine Urobilinogen 1.0 mg/dL (Negative) 06/27/24 20: Ur Leukocyte Esterase 3+ (Negative) A 06/27/24 20: Urine RBC >100 /hpf (0-2) H 06/27/24 20:32 Urine WBC >100 /hpf (0-5) H 06/27/24 20:32 Ur Squamous Epith Cells 0-5 /hpf (0-5) 06/27/24 20:32 Amorphous Sediment Not Reportable 06/27/24 20:32 Urine Bacteria 4+ /hpf (NONE) H 06/27/24 20:32 Hyaline Casts 2.98 /lpf 06/27/24 20:32 All radiology interpretation(s) finalized by discharge Discharge Plan Discharge Patient Disposition: Home Clinical Impression: UTI (urinary tract infection), Hematuria Condition: Stable Prescriptions: New hydrocodone-acetaminophen 5-325 mg tablet 1 tab PO Q8H PRN (Reason: pain) Qty: 7 0RF ketorolac 10 mg tablet 10 mg PO TID PRN (Reason: pain) Qty: 10 0RF cefdinir 300 mg capsule 300 mg PO BID Qty: 14 0RF Discharge Orders: Discharge ED (Routine); Ordered 06/28/24 Ordered By: Gómez Stern Referrals: Sridevi Awad, [facility] GUIDE [Primary Care Provider] - 1-3 days Patient Instructions: Urinary Tract Infection in Women (ED), Hematuria (ED), Opioid Safety, Pain Management Activity Restrictions/Additional Instructions: Medications as directed. Return for worsening pain despite treatment, fever despite 2-3 doses of antibiotics, vomiting liquids or medications, other concerning symptoms. See your doctor this week. Repeat urinalysis should be performed, to ensure the urine infection and blood in the urine are improving. Coding Level of Care Code ED Medicinal Chemist for Michael Cadet
== END 2024-06-28 04:22 | disposition home or self-care (01) ==
PROVIDERS: Emergency Provider Emergency Medicine; PCP Nurse Practitioner
DX: N39.0 Urinary tract infection, site not specified (principal); R31.9 Hematuria, unspecified; Z87.891 Personal history of nicotine dependence
CPT/HCPCS: 74176; 80053; 81003; 81015; 84703; 85025; 87077; 87086; 87186; 96361; 96374; 96375; 99285; J0696; J1885; J2270; J2405; J7030

== ENCOUNTER → 2024-09-16 10:14 | Outpatient (BNVA) | payer MEDICAID, SELFPAY | PROVIDERS: PCP Nurse Practitioner; Visit Provider Internal Medicine Rheumatology | DX: Z79.899 Other long term (current) drug therapy (principal); M19.90 Unspecified osteoarthritis, unspecified site; Z11.59 Encounter for screening for other viral diseases; Z11.1 Encounter for screening for respiratory tuberculosis | CPT/HCPCS: 36415; 80076; 82565; 83520; 85025; 85651; 86140; 86480; 86704; 86803; 87340 ==

== ENCOUNTER → 2024-12-17 10:03 | Outpatient (BNVA) | payer MEDICAID, SELFPAY | PROVIDERS: PCP Nurse Practitioner; Visit Provider Nurse Practitioner Family | DX: M79.645 Pain in left finger(s) (principal) | CPT/HCPCS: 73140 ==

== ENCOUNTER 2025-02-23 09:20 | Outpatient (CLI) | payer MEDICAID, SELFPAY ==
--- NOTE | 2025-02-23 09:27 | US_ITS ---
WS: [id number] ULTRASOUND LEFT BREAST HISTORY: N63.0 BREAST LUMP COMPARISON: None available. TECHNIQUE: 2-D and Doppler. Palpable areas in the LEFT breast correspond to very superficial, subcutaneous fluid collections with mild increased vascularity in the periphery. There is skin thickening. The largest collection measures 2.2 x 2.6 x 0.5 cm at 6:00 adjacent to the nipple. There is a smaller adjacent collection at 9:00. There is mild skin thickening in the adjacent breast parenchyma is also slightly of increased echogenicity. US/US breast LT limited* [id number] IMPRESSION: BI-RADS: 3- Probably Benign FOLLOW-UP: 1 Month Follow-up 1. Subcutaneous complex collections at 6:00 and 9:00 are most consistent with small abscesses. The largest at 6:00 measures 2.2 x 2.6 x 0.5 cm. There is also additional skin thickening. Recommend treatment with appropriate antibiotics a nd possible surgical evaluation. Follow-up ultrasound can be performed in Sat to ensure resolution.
== END 2025-02-23 09:21 | disposition home or self-care (01) ==
PROVIDERS: PCP Nurse Practitioner; Visit Provider Nurse Practitioner
DX: N63.25 Unspecified lump in the left breast, overlapping quadrants (principal); R23.4 Changes in skin texture
CPT/HCPCS: 76642

== ENCOUNTER 2025-09-08 14:07 | Emergency (ER) | payer MEDICAID, SELFPAY ==
--- OUTSIDE RECORDS SUMMARY | 2024-09-08 08:30 | XMS_ITS ---
Author Organization [facility] Address [address] [place] [id number] Care Team Providers Care Laborer Concrete Plant Name Role Phone Drasco, Sridevi Unavailable [phone] REASON FOR VISIT 2 weeks F/u Social History Sex Assigned At : Social History Observation Description Sex Assigned At Female Encounters Encounter Location Date Provider [facility] [address] [address] 09/08/2024 Sridevi Awad Plan Of Treatment No Information Progress Notes * Valentina LOFTON NDOB:[birth year] (24 yo F)Acc No.[id number]:09/08/2024 Patient: Valentina STRINGER Provider: Ricci Awad :2000 A ge:23 Y S ex:Female Date:09/08/2024 Address:[address] [id number] Subjective: * Chief Complaints: * 1 . 2 weeks F/u. * Medical History: Objective: * Vitals: Assessment: Plan: * Treatment: * Billing Information: * Visit Code: * Procedure Codes: * Electronic signature of DOMINIQUE Baltazar i on 09/08/2025 at 02:12 PM MLT Sign off status: Pending * Provider: Ricci Awad Date: 11/08/2023 Generated for Erika ng/Faxing/eTransmitting on: 11/08/2024 02:12 PM MLT
--- OUTSIDE RECORDS SUMMARY | 2025-02-03 04:50 | XMS_ITS ---
Author Organization [facility] Address [address] [place] [id number] Care Team Providers Care Fisheries Technical Officer Name Role Phone AllemanJosh montelongoi Unavailable [phone] REASON FOR VISIT 2 weeks F/u Social History Sex Assigned At : Social History Observation Description Sex Assigned At Female Encounters Encounter [facility] Date [facility] [address] [address] 02/03/2025 Sridevi Awad Plan Of Treatment No Information Progress Notes * Valentina LOFTON NDOB:[birth year] (24 yo F)Acc No.[id number]:02/03/2025 Patient: Benjamin STRINGERnnmarlene Rivera Provider: Ricci Awad :2000 A ge:24 Y S ex:Female Date:02/03/2025 Address:[address] [id number] Subjective: * Chief Complaints: * 1 . 2 weeks F/u. * Medical History: Objective: * Vitals: Assessment: Plan: * Treatment: * Billing Information: * Visit Code: * Procedure Codes: * Electronic signature of DOMINIQUE Baltazar i on 09/08/2025 at 02:12 PM REHAB TECH Sign off status: Pending * Provider: Ricci Awad Date: 0 02/03/2025 Generated for Erika ng/Faxing/eTransmitting on: 1 11/08/2024 02:12 PM REHAB TECH
[2025-09-08 14:10] VITALS: BP 166/97; PULSE 106; RESP 18; TEMP 36.6; O2SAT 99
--- OUTSIDE RECORDS SUMMARY | 2025-09-08 14:12 | XMS_ITS | Patient Health Record ---
[facility] Address [address] [facility] [address] [place] [address] Care Team Providers Care Carbide Operator Name Role Phone Sridevi Awad Unavailable [phone] Allergies Allergen (clinical drug ingredient) Drug/Non Drug Allergy documented on EMR Reaction Allergy Type Onset Date Status sulfamethoxazole / trimethoprim Bactrim Unknown Drug Allergy Active oseltamivir Tamiflu Unknown Drug Allergy Active losartan Losartan dizziness Drug Allergy Active meningococcal group B vaccine Meningococcal Group B Vaccine Unknown Drug Allergy Active methylprednisolone Methylprednisolone can take prednisone and tolerates decadron injection Drug Allergy Active Results Component Value Reference Range Notes HEMOGLOBIN A1c (496) Reviewed date:07/28/2025 06:45:36 AM Interpretation: Performing Lab:[facility]-[id number] [place] [facility], [id number] Avril Zhang MD Notes/Report: 0 0 0 0 HEMOGLOBIN A1c 4.9 <5.7 % For the purpose of screening for the presence of diabetes: <5.7% Consistent with the absence of diabetes 5.7-6.4% Consistent with increased risk for diabetes (prediabetes) > or =6.5% Consistent with diabetes This assay result is consistent with a decreased risk of diabetes. Currently, no consensus exists regarding use of hemoglobin A1c for diagnosis of diabetes in children. According to [place] Diabetes Association (ADA) guidelines, hemoglobin A1c <7.0% represents optimal control in non- diabetic patients. Different metrics may apply to specific patient populations. Standards of Medical Care in Diabetes(ADA). CBC (INCLUDES DIFF/PLT) (679 9) Reviewed date:07/28/2025 06:45:36 AM Interpretation: Performing Lab:[facility]-[id number] [place], [id number] Avril Zhang MD Notes/Report: 0 0 0 0 WHITE BLOOD CELL COUNT 10.1 3.8-10.8 Thousand/ uL RED BLOOD CELL COUNT 4.14 3.80-5.10 Million/uL HEMOGLOBIN 13.1 11.7-15.5 g/dL HEMATOCRIT 40.0 35.0-45.0 % MCV 96.6 80.0-100.0 fL MCH 31.6 27.0-33.0 pg MCHC 32.8 32.0-36.0 g/dL For adults, a slight decrease in the calculated MCHC value (in the range of 30 to 32 g/dL) is most likely not clinically significant; however, it should be interpreted with caution in correlation with other red cell parameters and the patient's clinical condition. RDW 13.3 11.0-15.0 % PLATELET COUNT 262 140-400 Thousand/uL MPV 10.6 7.5-12.5 fL ABSOLUTE NEUTROPHILS 6373 9272-4181 cells/uL ABSOLUTE LYMPHOCYTES 3040 850-3900 cells/uL ABSOLUTE MONOCYTES 424 200-950 cells/uL ABSOLUTE EOSINOPHILS 202 15-500 cells/uL ABSOLUTE BASOPHILS 61 0-200 cells/uL NEUTROPHILS 63.1 LYMPHOCYTES 30.1 MONOCYTES 4.2 EOSINOPHILS 2.0 BASOPHILS 0.6 COMPREHENSIVE METABOLIC PANE (95857) Reviewed date:07/28/2025 06:45:36 AM Interpretation: Performing Lab:[facility]-[id number] [place], [id number] Avril Zhang MD Notes/Report: 0 0 0 0 GLUCOSE 83 65-99 mg/dL Fasting reference interval UREA NITROGEN (BUN) 9 7-25 mg/dL CREATININE 0.95 0.50-0.96 mg/dL EGFR 86 > OR = 60 mL/min/1.73m2 BUN/CREATININE RATIO SEE NOTE: 6-22 (calc) Not Reported: BUN and Creatinine are within reference range. SODIUM 140 135-146 mmol/L POTASSIUM 4.2 3.5-5.3 mmol/L CHLORIDE 105 98-110 mmol/L CARBON DIOXIDE 28 20-32 mmol/L CALCIUM 8.8 8.6-10.2 mg/dL PROTEIN, TOTAL 6.5 6.1-8.1 g/dL ALBUMIN 4.0 3.6-5.1 g/dL GLOBULIN 2.5 1.9-3.7 g/dL (calc) ALBUMIN/GLOBULIN RATIO 1.6 1.0-2.5 (calc) BILIRUBIN, TOTAL 0.4 0.2-1.2 mg/dL ALKALINE PHOSPHATASE 91 31-125 U/L AST 9 10-30 U/L ALT 7 6-29 U/L ALBUMIN, RANDOM URINE W/CREA TININE (6517) Reviewed date:07/28/2025 06:45:36 AM Interpretation: Performing Lab:[place], [facility]-[id number] [place], [place]ytkodSB[address] IrisAna Zhang MD Notes/Report: 0 0 0 0 CREATININE, RANDOM URINE 45 20-275 mg/dL ALBUMIN, URINE 37.7 See Note: mg/dL Reference Range: Reference Range Not established Results verified by repeat analysis on dilution. ALBUMIN/CREATININE RATIO, RANDOM URINE 838 <30 mg/g creat The ADA defines abnormalities in albumin excretion as follows: Albuminuria Category Result (mg/g creatinine) Normal to Mildly increased <30 Moderately increased 30-299 Severely increased > OR = 300 The ADA recommends that at least two of three specimens collected within a 3-6 month period be abnormal before considering a patient to be within a diagnostic category. Reason For Referral Reason Ultrasound of left b reast; diagnostic bilateral mammogram if indicated Diagnosis 1 Mass of left breast, unspecified quadrant (N63.20) [facility] Referring Provider First Name Sridevi Referring Provider Last Name Referring Provider [facility] Referred Provider [facility] Procedure 1 ULTRASOUND BREAST LI MITED (37060) Procedure 2 BREAST TOMOSYNTHESIS BI (39744) General Notes Lissa Ch 2024 10:30:07 AM >ID and ins card attached.Jing Wendy 01/21/2025 10:33:52 AM >[facility] does not require a PA for either of these two CPT codes., Referral faxed., Lissa Ch 01/21/2025 11:40:29 AM >Updated mammo CPT code to a 3 D code. Re-faxed., Lissa Ch 01/28/2025 10:24:31 AM >Attempt TC from Edwin gotti/ [facility] on 01/26/25. Message left to return her call., Attempt TC to Edwin. Left message to return my call., Lissa Ch 01/28/2025 12:41:55 PM >TC from Edwin; she confirmed the CPT info. , Pt's appt is 02/23/25 at 11:30 am. Pt notified of appt by their clinic. Referral Priority Routine Referral Appointment Date 02/23/2025 Reason spfd nephrology. Diagnosis 1 Proteinuria, unspeci fied type (R80.9) Referral Organization [employer] Referring Provider First Name Sridevi Referring Provider Last Name Referring Provider [facility] Referred Provider Nephrology [facility] Referred Provider Specialty Nephrology General Notes Lissa Ch 2024 08:32:36 AM >Pt's insurance, ID and cumulative lab report attached. Referral faxed., Lissa Ch 08/04/2025 04:15:57 PM >TC to [facility]. Confirmed appt 11/17/25 at 10:40 am. Pt notified of appt by their clinic. Referral Priority Routine Referral Appointment Date 11/17/2025 Reason consultation Diagnosis 1 Tachycardia (R00.0) Diagnosis 2 Essential (primary) hypertension (I10) Referral Organization [employer] Referring Provider First Name Sridevi Referring Provider Last Name Referring Provider [facility] Referred Provider [facility] Notes Lissa Ch 2024 12:05:31 PM >Insurance and ID attached. Recent labs attached., Lissa Ch 08/25/2025 04:02:57 PM >Referral faxed. Referral Priority Routine Medications Medication SIG (Take, Route, Frequency, Duration) Notes Start Date End Date Status Cetirizine HCl 10 MG 1 tablet Orally Onc e a day; Duration: 30 days 02/04/2024 Active Lexapro 5 MG 1 tablet Orally Once a day Active Losartan Potassium 25 MG 1 tablet Orally Once a day; Duration: 30 days 08/25/2024 Not-Takin g Fluticasone Propionate 50 MCG/ACT 1 spray in each nostril Nasally Once a day; Duration: 30 days 02/04/2024 Not-Taking Lisinopril 40 MG 1 tablet Orally Once a day; Duration: 30 days 08/25/2025 Active Ibuprofen 400 MG 1 tablet with food o r milk as needed Orally Three times a day Not-Taking Tylenol 325 MG 1 tablet as needed Orally every 4 hrs Not-Taking Metoprolol Tartrate 25 MG 1 tablet with food Orally daily 08/10/2025 Active Social History Sex Assigned At : Social History Observation Description Sex Assigned At Female Problems Problem Type SNOMED Code ICD Code Onset Dates Problem Status W/U Status Risk Notes Problem Essential hypertension (44575037) Essential (primary) hypertension (I10) Active confirmed Problem Seasonal allergy (178452343) Seasonal allergies (J30.2) Active confirmed Problem Multiple joint pain (59001367) Multiple joint pain (M25.50) Active confirmed Problem Thyroid nodule (457028778) Thyroid nodule (E04.1) Active confirmed Problem Proteinuria (31809815) Proteinuria, unspecified type (R80.9) Active confirmed Problem Hearing loss (32511357) Decreased hearing of left ear (H91.92) Active confirmed Problem Chronic kidney disease stage 1 (102854709) CKD stage G1/A3, GFR > 90 and albumin creatinine ratio >300 mg/g (N18.1) Active confirmed Vital Signs Heart Rate 103 /min 08/25/2025 Temperature 97.7 degrees Fahrenheit 08/25/2025 Height-cm 170.18 cm 08/25/2025 Blood pressure diastolic 90 mm Hg 08/25/2025 Oximetry 97 % 08/25/2025 Weight-kg 139.71 kg 08/25/2025 Height 67 in 08/25/2025 Blood pressure systolic 146 mm Hg 08/25/2025 Weight 308.0 lbs 08/25/2025 BMI 48.23 kg/m2 08/25/2025 Encounters Encounter Location Date Provider Diagnosis [place] [address] [address] 10/02/2024 Sridevi URI, acute J06.9 ; O ther acute nonsuppurative otitis media, right ear H65.191 and CKD stage G1/A3, GFR > 90 and albumin creatinine ratio >300 mg/g N18.[address] [address] 01/19/2025 Sridevi Awad Acute non-recurrent frontal sinusitis J01.10 ; Mass of left breast, unspecified quadrant N63.20 and Essential (primary) hypertension I10 [address] [address] 04/13/2025 Sridevi Awad Acute URI J06.9 and Right otitis media, unspecified otitis media type H66.[address] [address] 07/27/2025 Sridevi Awad Proteinuria, unspeci fied type R80.9 and Essential (primary) hypertension I10 [address] [address] 08/10/2025 Sridevimavis Awad Proteinuria, unspeci fied type R80.9 ; Essential (primary) hypertension I10 ; CKD stage G1/A3, GFR > 90 and albumin creatinine ratio >300 mg/g N18.1 and Tachycardia R00.[address] [address] 08/25/2025 Sridevi Awad Proteinuria, unspeci fied type R80.9 ; Essential (primary) hypertension I10 ; CKD stage G1/A3, GFR > 90 and albumin creatinine ratio >300 mg/g N18.1 and Tachycardia R00.[address] [address] 09/08/[address] [address] 07/28/[address] [address] 08/23/2025 Sridevi Awad Assessments Encounter Date Diagnosis (ICD Code) Assessment Notes Treatment Notes Treatment Clinical Notes Section Notes 10/02/2024 Other acute nonsuppurative otitis media, right ear (ICD-10 - H65.191) 10/02/2024 URI, acute (ICD-10 - J06.9) 01/19/2025 Acute non-recurrent frontal sinusitis (ICD-10 - J01.10) 01/19/2025 Mass of left breast, unspecified quadrant (ICD-10 - N63.20) 04/13/2025 Acute URI (ICD-10 - J06.9) 04/13/2025 Right otitis media, unspecified otitis media type (ICD-10 - H66.91) 08/10/2025 Proteinuria, unspecified type (ICD-10 - R80.9) 07/27/2025 Proteinuria, unspecified type (ICD-10 - R80.9) 08/25/2025 Proteinuria, unspecified type (ICD-10 - R80.9) 08/10/2025 Essential (primary) hypertension (ICD-10 - I10) 08/10/2025 CKD stage G1/A3, GFR > 90 and albumin creatinine ratio >300 mg/g (ICD-10 - N18.1) 08/25/2025 Essential (primary) hypertension (ICD-10 - I10) 07/27/2025 Essential (primary) hypertension (ICD-10 - I10) 10/02/2024 CKD stage G1/A3, GFR > 90 and albumin creatinine ratio >300 mg/g (ICD-10 - N18.1) Needs to return to clinic for blood pressure check. Will ask her to take one half of the losartan 25 mg, see if that helps the dizziness. 01/19/2025 Essential (primary) hypertension (ICD-10 - I10) 08/10/2025 Tachycardia (ICD-10 - R00.0) 08/25/2025 CKD stage G1/A3, GFR > 90 and albumin creatinine ratio >300 mg/g (ICD-10 - N18.1) keep upcoming neph appt 08/25/2025 Tachycardia (ICD-10 - R00.0) 07/27/2025 Other We discussed the importance of blood pressure control Increase water Limit soda drinks No ibuprofen or PPIs Can use Tums or Pepcid if needed for GERD symptoms Plan Of Treatment No Information Insurance Providers Payer Name Payer Address Payer Phone Subscriber Number Group Number Insured Name Patient Relationship to Insured Coverage Start Date Coverage End Date [facility] [address] [place] [phone] [id number] Valentina Lofton Self - patient is the insured Medical (General) History Medical History History ICD Code environmental allergies Surgical History Surgery Date(Month/Year) tonsillectomy and adnoidectomy
--- OUTSIDE RECORDS SUMMARY | 2025-09-08 14:12 | XMS_ITS | Clinical Summary ---
Author Organization [facility] [place] [facility] Address [address] [place] [address] Phone Care Team Providers Care Cognos Developer Name Role Phone Unavailable Primary Care Provider Unavailabl e Encounters Date Type Department Care Team Description 07/28/2025 Telephone [facility], [facility] [address] [place] [address] Thea Law MD 07/28/2025 Transcribe Orders [facility], [facility] [address] [place] [address] Sridevi Awad APN Proteinuria, not otherwise specified (Primary Dx) from Last 3 Months Social History Tobacco Use Types Packs/Day Years Used Date Smoking Tobacco: Never Assessed Comments Unknown Sex and Gender Information Value Date Recorded Sex Assigned at Not on file Legal Sex Female 10:01 AM EDT Gender Identity Not on file Sexual Orientation Not on file Plan of Treatment Upcoming Encounters Date Type Department Care Team (Late st Contact Info) Description 11/17/2025 10:40 AM SALES SPECIALIST Office Visit [place] [facility] [employer], [facility] [address] [place] [address] Thea Law MD [address] [place] [address] Health Maintenance Due Date Last Done Comments Hepatitis B Vaccine (1 of 3 - 19+ 3-dose series) 11/15 Pneumococcal Vaccine: Peds ( 0 to 5 Years) and At-Risk Patients (6 to 49 Years) (1 of 2 - PCV) 2019 Influenza Vaccine (#1) 2025 Insurance [facility] ([id number])
--- OUTSIDE RECORDS SUMMARY | 2025-09-08 14:12 | XMS_ITS | Encounter Summary ---
Author Organization [facility] Address [address] [address] Phone Care Team Providers Care Construction Tech Name Role Phone Unavailable Primary Care Provider Unavailabl e Reason for Referral * Consultation (Routine) - Authorized Specialty Diagnoses / Procedures Referred By Contandreina t Referred To Contact Nephrology Diagnoses Proteinuria, not otherwise specified Sridevi Awad APN [address] [place] [address] Phone: tel: fax: Thea Law MD [address] [address] Phone: tel: fax: Referral ID Status Reason Start Date Expiration Date Visits Requested Visits Authorized [id number] Authorized Consult and Treat 07/28/2025 07/28/2026 1 1 Encounter Details Date Type Department Care Team (Late st Contact Info) Description 07/28/2025 Transcribe Orders [facility] [address] [address] Sridevi Awad APN [address] [place] [address] Proteinuria, not otherwise specified (Primary Dx) Social History Tobacco Use Types Packs/Day Years Used Date Smoking Tobacco: Never Assessed Comments Unknown Sex and Gender Information Value Date Recorded Sex Assigned at Not on file Legal Sex Female 10:01 AM EDT Gender Identity Not on file Sexual Orientation Not on file documented as of this encounter Plan of Treatment Upcoming Encounters Date Type Department Care Team (Late st Contact Info) Description 11/17/2025 10:40 AM ALLIED HEALTH PROFESSIONAL Office Visit [facility], [facility] [address] [place] [address] Thea Law MD [address] [facility] [address] [place] [id number] Scheduled Referrals Name Type Priority Associated Diagnoses Order Schedule Ambulatory referral to Nephrology Outpatient Referral Routine Proteinuria, not otherwise specified Expected: 07/28/2025, Expires: 07/28/2026 documented as of this encounter Visit Diagnoses Diagnosis Proteinuria, not otherwise specified- Primary documented in this encounter
--- NOTE | 2025-09-08 14:23 | ED_ITS ---
HPI - Female Genitourinary 2 General: Chief complaint: Urogenital-Female Stated complaint: Pain in Vagina/Lower back and abd Time Seen by Provider: 09/08/25 14:16 History of Present Illness: 24-year-old female presents emergency ro om complaining of vaginal discomfort urethral pain. She has not had any vaginal bleeding since she is not able to empty her bladder. She describes the pain as being in her vagina. She has not had any vaginal discharge. Associated symptoms: Deny abdominal pain Related Data Home Medications ?Medication ?Instructions ?Recorded ?Confirmed escitalopram oxalate 5 mg tablet 5 mg PO DAILY 5 09/08/25 metoprolol tartrate 25 mg tablet 25 mg PO DAILY 09/08/25 Previous Rx's ?Medication ?Instructions ?Recorded ciprofloxacin HCl 500 mg tablet 500 mg PO BID #10 tabs 09/08/25 fluconazole 150 mg tablet 150 mg PO Q3D 2 doses #2 tab s 09/08/25 Allergies Allergy/AdvReac Type Severity Reaction Status Date / Time meningococcal vaccine B and C Allergy ALGY-Rash Verified 09/16/24 09:07 methylprednisolone Allergy ADR-Halluci Verified 09/16/24 09:07 nating oseltamivir (From Tamiflu) Allergy ALGY-Hives Verified 09/16/24 09:07 sulfamethoxazole (From Allergy ALGY-Hives Verified 09/16/24 09:07 Bactrim) trimethoprim (From Bactrim) Allergy ALGY-Hives Verified 09/16/24 09:07 Review of Systems 2 Const: Denies: fever(s) or chills Card: Denies: chest pain Resp: Denies: dyspnea GI: Denies: abdominal pain : Reports: flank pain (Left), dysuria and urinary urgency; Denies: urinary frequency Musc: Denies: neck pain or back pain Skin/Breast: Denies: rash PFSH ED 2 PFSH: Medical History Immunization counseling High risk medication use Seronegative rheumatoid arthritis of both hands Hx of migraines Joint pain Hypertension Surgical History History of section History of tonsillectomy History of cholecystectomy Social History (Reviewed 09/15/25 @ 09:57 by CRISTOPHER Linares Smoking and tobacco/nicotine status: current every day tobacco/nicotine user cigarettes and e-cigarettes E-Cigarette Details: vaporizer device Alcohol intake: never Physical Exam 2 Const: GENERAL APPEARANCE: cooperative ORIENTATION/CONSCIOUSNESS: Yes awake, Yes oriented to person, Yes oriented to place and Yes oriented to time HENMT: COMMON NORMALS: normocephalic, atraumatic and hearing grossly normal bilaterally HEAD & SCALP: normocephalic and atraumatic Resp: COMMON NORMALS: normal respiratory effort, No retractions, No use of accessory muscles and clear to auscultation bilaterally AUSCULTATION: clear to auscultation bilaterally Cardio: COMMON NORMALS: regular rate, regular rhythm and No murmurs present (Cardio) RATE: regular rate RHYTHM: regular rhythm GI: COMMON NORMALS: Soft to palpation and No hepatosplenomegaly present A USCULTATION: Yes normoactive bowel sounds PALPATION: Yes Soft to palpation, No Tenderness to palpation present (GI), No Guarding due to palpation present (GI) and Yes No hepatosplenomegaly present : OTHER: Patient placed in dorsal lithotomy position with nurse present to assist. Speculum introduced cervix visualized no cervical discharge no cervical motion tenderness. GC chlamydia and wet mount swabs done no signs of injury redness inflammation swelling. Extremity: COMMON NORMALS: normal to inspection, capillary refill normal, no clubbing, cyanosis or edema, no calf tenderness and no pedal edema Neuro: SENSORIUM/ORIENTATION: Yes oriented to person, Yes oriented to place and Yes oriented to time Skin: COMMON NORMALS: no rashes or lesions noted GENERAL SKIN EXAM: no rashes or lesions noted Course 2 Vital Signs: Vital signs: Vital Signs Temperature 97.8 F 09/08/25 14:10 Pulse Rate 112 H 09/08/25 14:43 Respiratory Rate 18 09/08/25 14:10 Blood Pressure 166/97 09/08/25 14:10 Pulse Oximetry 100 09/08/25 14:43 Oxygen Delivery Me thod Room Air 09/08/25 14:43 MDM - Female Medical Decision Making GC chlamydia are negative. Wet mount shows trace yeast UA shows signs of cystitis. There is no cervical discharge or cervical motion tenderness. Will discharge patient home treat for cystitis oral antibiotics given at discharge. Patient also given 2 doses of diarrhea flu can. Medical Records I reviewed the patient's medical records. Lab Data I reviewed the patient's lab results. 09/08/25 14:28 09/08/25 14:28 Laboratory Results WBC 11.64 10^3/uL (3.29-11.43) H 09/08/25 14: RBC 4.30 10^6/uL (3.85-5.65) 09/08/25 14:28 Hgb 13.60 g/dL (11.27-16.99) 09/08/25 14:28 Hct 39.9 % (36-47) 09/08/25 14: MCV 92.8 fl (85-98) 09/08/25 14: MCH 31.6 pg (27-33) 09/08/25 14: MCHC 34.1 g/dL (30-55) 09/08/25 14: RDW 13.2 % (12.1-15.1) 09/08/25 14: Plt Count 217 10^3/cmm (157-399) 09/08/25 14: MPV 10.7 fL (7.4-10.4) H 09/08/25 14: Neut % (Auto) 73.7 % 09/08/25 14: Lymph % (Auto) 19.8 % 09/08/25 14: Otero % (Auto) 4.2 % 09/08/25 14: Eos % (Auto) 1.5 % 09/08/25 14: Baso % (Auto) 0.5 % 09/08/25 14: Neut # (Auto) 8.58 10^3/uL (1.8-7.7) H 09/08/25 14:28 Lymph # (Auto) 2.3 10^3/uL (0.8-4.8) 09/08/25 14: Otero # (Auto) 0.5 10^3/uL (0.2-0.9) 09/08/25 14: Eos # (Auto) 0.2 10^3/uL (0.0-0.8) 09/08/25 14: Baso # (Auto) 0.1 10^3/uL (0.0-0.1) 09/08/25 14:28 Nucleated RBC % (auto) 0 % 09/08/25 14: Nucleated RBCs # 0.0 /100WBC 09/08/25 14:28 Sodium 139 mmol/L (136-145) 09/08/25 14:28 Potassium 3.8 mmol/L (3.5-5.1) 09/08/25 14:28 Chloride 105 mmol/L (98-107) 09/08/25 14: Carbon Dioxide 21 mmol/L (22-29) L 09/08/25 14: Anion Gap 16.8 (5-19) 09/08/25 14:28 BUN 8 mg/dL (6-20) 09/08/25 14:28 Creatinine 0.7 mg/dL (0.5-0.9) 09/08/25 14: GFR Calculation 102.8 mL/min (90-130) 09/08/25 14:28 Glucose 118 mg/dL (65-115) H 09/08/25 14: Calculated Osmolality 287 mOsm/kg (285-295) 09/08/25 14:28 Calcium 8.7 mg/dL (8.5-10.5) 09/08/25 14:28 Total Bilirubin 0.2 mg/dL (0.15-1.2) 09/08/25 14:28 AST 10 U/L (0-32) 09/08/25 14:28 ALT 10 U/L (0-33) 09/08/25 14:28 Alkaline Phosphatase 115 U/L (35-105) H 09/08/25 14: Total Protein 6.2 g/dL (6.6-8.7) L 09/08/25 14: Albumin 3.8 g/dL (3.5-5.2) 09/08/25 14: Globulin 2.4 g/dL (1.3-4.6) 09/08/25 14:28 HCG, Qual Negative (Negative) 09/08/25 14: Urine Color Yellow (Yellow) 09/08/25 14: Urine Appearance Cloudy (CLEAR) A 09/08/25 14: Urine pH 6.5 (5-7) 09/08/25 14: Ur Specific Caruthers 1.017 (1.005-1.030) 09/08/25 14: Urine Protein 3+ (Negative) A 09/08/25 14:30 Urine Glucose (UA) Negative (Normal) 09/08/25 14:30 Urine Ketones Negative (Negative) 09/08/25 14:30 Urine Blood 2+ (Negative) A 09/08/25 14:30 Urine Nitrate Negative (Negative) 09/08/25 14:30 Urine Bilirubin Negative (Negative) 09/08/25 14:30 Urine Urobilinogen 0.2 mg/dL (Negative) 09/08/25 14:30 Ur Leukocyte Esterase 2+ (Negative) A 09/08/25 14:30 Urine RBC 51-100 /hpf (0-2) H 09/08/25 14:30 Urine WBC >100 /hpf (0-5) H 09/08/25 14:30 Ur Squamous Epith Cells 0-5 /hpf (0-5) 09/08/25 14:30 Amorphous Sediment Not Reportable 09/08/25 14:30 Urine Bacteria 2+ /hpf (NONE) H 09/08/25 14:30 Hyaline Casts 2.05 /lpf 09/08/25 14:30 C. trachomatis (PCR) Not detected (Negative) 09/08/25 15:03 N. gonorrhoeae (PCR) Not detected (Negative) 09/08/25 15:03 No radiology studies performed this visit Discharge Plan Discharge Patient Disposition: Home Clinical Impression: Cystitis Condition: Stable Prescriptions: New ciprofloxacin HCl 500 mg tablet 500 mg PO BID Qty: 10 0RF fluconazole 150 mg tablet 150 mg PO Q3D Qty: 2 0RF No Action escitalopram oxalate 5 mg tablet 5 mg PO DAILY metoprolol tartrate 25 mg tablet 25 mg PO DAILY Discharge Orders: Discharge ED (Routine); Ordered 09/08/25 Ordered By: Trevor Francois Referrals: Sridevi Awad FNP [Primary Care Provider, Family Practice] Discharge Diet: Usual diet Discharge Activity: Increase activity as tolerated Patient Instructions: Opioid Safety, Pain Management, Patient Portal & Randa Instructions Activity Restrictions/Additional Instructions: Thank you for choosing [facility] for your healthcare needs today. It is very important that you follow up as instructed or that you return to the Emergency Department should you have concerns or if your condition changes or worsens in any way. Emergency department visits are focused on emergent conditions, in some cases you may require further evaluation on an outpatient basis. You were seen in the emergency room complaining of difficulty with urination. Above exam did not show any significant abnormalities you did have a few yeast cells on the swab. We gave you prescription for Diflucan take 1 tablet today and 1 in 2 days. Urine shows signs of infection which I think are what is causing the majority of your symptoms. You are given a dose of antibiotics in emergency room recommend he start oral antibiotics 1 pill twice a day for 5 days beginning tomorrow. (Please note that included in your discharge packet is information concerning opioid safety and pain management. 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
[2025-09-08 14:39] LABS: Hematocrit 39.9 % (36-47); Hemoglobin 13.60 g/dL (11.27-16.99); Mean Corpuscular HGB Conc 34.1 g/dL (30-55); Mean Corpuscular Hemoglobin 31.6 pg (27-33); Mean Corpuscular Volume 92.8 fl (85-98); Nucleated Red Blood Cells % 0 %; Platelet Count 217 10^3/cmm (157-399); Red Blood Count 4.30 10^6/uL (3.85-5.65); White Blood Count 11.64 10^3/uL (3.29-11.43)
[2025-09-08 14:43] VITALS: PULSE 112; O2SAT 100
[2025-09-08 14:52] LABS: Glucose Urine UA Negative (Normal); Nitrate Urine Negative (Negative); Specific Gravity, Urine 1.017 (1.005-1.030)
[2025-09-08 14:57] LABS: Alanine Aminotransferase 10 U/L (0-33); Albumin Level 3.8 g/dL (3.5-5.2); Alkaline Phosphatase 115 U/L (35-105); Anion Gap 16.8 (5-19); Aspartate Amino Transferase 10 U/L (0-32); Blood Urea Nitrogen 8 mg/dL (6-20); Calcium 8.7 mg/dL (8.5-10.5); Carbon Dioxide 21 mmol/L (22-29); Chloride 105 mmol/L (98-107); Globulin 2.4 g/dL (1.3-4.6); Glucose 118 mg/dL (65-115); Osmolality Calculated 287 mOsm/kg (285-295); Potassium 3.8 mmol/L (3.5-5.1); Sodium 139 mmol/L (136-145); Total Protein 6.2 g/dL (6.6-8.7)
[2025-09-08 14:57] LABS: Add Urine Microscopic? YES
[2025-09-08 14:59] LABS: HCG, Serum Qual Negative (Negative)
[2025-09-08] MEDS: cefTRIAXone 1,000 MG in water for injection-sterile 2.1 ML 2 MG IM (15:51)
[2025-09-08 16:45] LABS: Neisseria Gonorrhea NOT DETECTED (Negative)
== END 2025-09-08 16:04 | disposition home or self-care (01) ==
PROVIDERS: Emergency Provider Family Medicine; PCP Nurse Practitioner
DX: N30.90 Cystitis, unspecified without hematuria (principal); F17.210 Nicotine dependence, cigarettes, uncomplicated; F17.290 Nicotine dependence, other tobacco product, uncomplicated; I10 Essential (primary) hypertension
CPT/HCPCS: 36415; 80053; 81001; 84703; 85025; 87077; 87086; 87186; 87210; 87491; 87591; 96372; 96374; 99284; J0696

== ENCOUNTER → 2025-10-07 16:25 | Outpatient (BNVA) | payer MEDICAID, SELFPAY | PROVIDERS: PCP Nurse Practitioner; Referring Provider Nurse Practitioner; Visit Provider Internal Medicine Cardiovascular Disease | DX: R07.9 Chest pain, unspecified (principal); I49.8 Other specified cardiac arrhythmias; I49.3 Ventricular premature depolarization | CPT/HCPCS: 93005 ==